=== PATIENT | female | born 1945 | race Hispanic/Latino ===

== ENCOUNTER 2020-06-22 08:27 | Day surgery (SDC) | payer MEDICARE ==
[2020-06-19 08:57] LABS: Absolute Lymphocytes (CBC) 1.5 K/uL (0.7-4.9); Basophils % 0.6 % (0-1.3); Hematocrit 40.5 % (36.0-45.0); Lymphocytes % 32.8 % (15.3-44.8); MPV 7.2 fL (7.6-11.3); RBC Red Blood Cell Count 4.58 M/uL (3.86-4.86)
[2020-06-19 09:07] LABS: Potassium 3.5 mmol/L (3.5-5.1)
[2020-06-22] MEDS ORDERED: LIDOCAINE 1% MPF 30 ML VIAL ONE (09:02)
[2020-06-22] MEDS ORDERED: FENTANYL CITR 100 MCG/2 ML ONE ×2 (09:05→10:37)
[2020-06-22] MEDS ORDERED: LIDOCAINE 1% MPF 5 ML VIAL ONE ×2 (09:05→10:37)
[2020-06-22] MEDS ORDERED: propofoL 200 MG/20 ML VIAL IV ONE ×2 (09:05→10:37)
[2020-06-22] MEDS ORDERED: Ringers Lactate 1,000 ML IV ONE (09:13)
[2020-06-22] MEDS ORDERED: CEFAZOLIN/SWI 1gm 1 GM/10 ML SYR ONE (09:13)
[2020-06-22] MEDS ORDERED: ONDANSETRON 4 MG/2 ML VIAL ONE (10:50)
[2020-06-22] MEDS ORDERED: dexAMETHasone 10 MG/ML VIAL ONE (10:50)
[2020-06-22] MEDS ORDERED: KETOROLAC 30 MG/ML INJ ONE (10:58)
[2020-06-22] MEDS ORDERED: EPHEDRINE SULF 50 MG/ML VIAL ONE (10:58)
[2020-06-22] MEDS ORDERED: NS 0.9% VIAL 10 ML ONE (10:59)
[2020-06-22] MEDS ORDERED: Mastisol Adhesive Liq ONE (11:22)
[2020-06-22 11:48] VITALS: O2SAT 93
--- NOTE | 2020-06-22 12:11 | OP ---
Date of Procedure: 06/22/2020 Surgeon: Kishan Godoy MD Education Officer: JAILYN Mtz. Preoperative Diagnosis: Left-sided vision change and headache, rule out temporal arteritis. Postoperative Diagnosis: Left-sided vision change and headache, rule out temporal arteritis. Procedure: Left temporal artery biopsy, utilization of Doppler device to isolate the entrance of the temporal artery. Estimated Blood Loss: Minimal. Specimen: Left temporal artery. Findings: As above. Anesthesia: General. Complications: None. Disposition: The patient tolerated the procedure in stable condition and taken to Recovery in good g eneral condition. Procedure In Detail: The patient was brought to the OR and placed in supine position. General anest hesia begun. The patient was prepped and draped in the usual sterile fashion. Doppler device was us ed to isolate the branch of the temporal artery anterior and superior to the left. Then, Marcaine 0. 5% was infiltrated locally. A 15-blade was used to make a 4 cm incision. Subcutaneous tissue was di vided and then deep to the subcutaneous tissue, a branch of temporal artery identified. The proximal and distal control obtained with sharp and blunt dissection. Bleeding controlled with cautery. The 4-0 silk was used to tie off both ends and 4 cm segment excised and sent to Pathology. The wound wa s irrigated. Bleeding controlled with cautery. A 4-0 chromic was used to approximate the subcutaneo us tissue and close the skin. Sterile dressing was applied. The patient was awakened and taken to ecovery in good general condition. Discharge Note: The patient will go to Day Surgery and home when stable. Disposition: Home. Condition: Stable. Discharge Instructions: Resume home medications and diet. Activity as tolerated. No heavy lifting. Remove outer dressing in 2 days. Shower. Keep Steri-Strips on at all times. Followup in my offic e 2 weeks. Call for appointment. Follow up with Dr. Logan in 1 week. Call for appointment. Ult racet 1 tablet p.o. q.4 p.r.n. pain. /MODL Voice ID: [id number] Report ID: [id number]
[2020-06-22 12:15] VITALS: BP 136/63; TEMP 96.1
== END 2020-06-22 12:50 | disposition home or self-care (01) ==
LOC: OR 08:27
PROVIDERS: ATTEND Surgery
PROC: 03BT0ZX Excision of Left Temporal Artery, Open Approach, Diagnostic (ICD-10-PCS; principal; 2020-06-22 10:00)
DX: H57.12 Ocular pain, left eye (principal); H53.9 Unspecified visual disturbance; R51.9 Headache, unspecified; I10 Essential (primary) hypertension; I25.10 Atherosclerotic heart disease of native coronary artery without angina pectoris; Z20.822 Contact with and (suspected) exposure to COVID-19
CPT/HCPCS: 37609; 85025; 80048; 36415; 88305; U0003; J2704; J3010; J1100; J0690; J7120; J2405

== ENCOUNTER 2020-11-24 08:50 | Emergency (ER) | payer MEDICARE, OTHER ==
--- OUTSIDE RECORDS SUMMARY | 2020-11-24 08:54 | XMS REPORT | Continuity of Care Document ---
:1945 Author Organization [facility] t Address [address] [place] [address] Care Team Providers Name Role Phone BELIA Primary Care Physician Unavailable Jodi Castillo Attending Clinician Jakub Villafana Attending Clinician Karma Hook MD Attending Clinician Sigifredo DO Attending Clinician SIGIFREDO, DO A Attending Clinician Unavailable BELIA Attending Clinician Unavailable SIGIFREDO Admitting Clinician Unavailable SIGIFREDO, DO A Admitting Clinician Unavailable BELIA Admitting Clinician Unavailable Payers Payer Name Policy Type Policy Effective Expiration Source Number Date Date [facility] MEDICARE(WELLMED) [id number] 2020 Met goyo LUJAN MEDICARE ADVANTAGE 00:00:00 H ospital [id number] 2021-Pr esentHMO [employer] [id number] 2020 [place] dist CHOICE/CHOICE 00:00:00 Hospital [id number] 2020-Prese ntHMO/PPO Problems Condition Condition Condition Status Onset Resolution Last Treating Co mments Source Name Details Category Date Date Treatment Clinician Date Urinary Urinary Disease Active [facility]i tract tract 2-13 st infection infection 00:00: [facility] without without 00 l hematuria hematuria Hypothyroi Hypothyroi Problem Active 2019-0 [facility] [place] dism dism 611 da [facility] Peripheral Peripheral Problem Active 0 M [place] chorioreti Chorioreti 611 da nal scar nal Scar 00:00: [facility] Nuclear Nuclear Problem Active [place] sclerotic Sclerotic 09-04 da cataract Cataract 00:00: [facility] Hypermetro Hypermetro Problem Active 2019- M [facility] garbiele gabriele 6 da 00:00: [facility] Myopia Myopia Problem Active 2018- [place] 6 da 00:[facility]: [facility] Regular Regular Problem Active 2018- [place] astigmatis Astigmatis 6 da m m 00:00: [facility] Presbyopia Presbyopia Problem Active 2018-0 M [facility] 09-04 da 00:00: [facility] Essential Essential Problem Active [facility] [place] hypertensi Hypertensi 6 da on on 00:00: [facility] Heart Heart Problem Active [place] disease Disease 09-04 da 00:00: [facility] Arthritis Arthritis Problem Active [facility] 6 da 00:00: [facility] Pseudophak Pseudophak Problem Active 2018-0 [facility] [place] ia ia 09-04 da 00:00: [facility] Colon Colon Disease Active [facility] cancer cancer 10-09 st screening screening 00:00: [facility]osp [facility] 00 l Elevated Elevated Disease Active [facility] di ferritin ferritin 08-30 00:00: Hospita 00 l Basophilia Basophilia Disease Active M ethodi 08-09 st 00:00: Hospita 00 l White White Disease Active Methodi blood cell blood cell 16 st abnormalit abnormalit 00:00: Ho spita y y 00 l Abnormal Abnormal Disease Active [facility] di liver liver 08-09 function function 00:00: Hospit a test test 00 l Rash Rash Disease Active [facility] 08-09 st 00:00: Hospita 00 l Left upper Left upper Disease Active M ethodi quadrant quadrant 16 st pain pain 00:00: Hospita 00 l Pseudophak Problem Active 2013-032020-11-21 M emoria ia 2- 00:39:35 l (disorder) 00:00: Yfn n Pseudophak 00 ia (disorder) Active 02/24/2014 Problem 11/21/2020 Data migrated from [employer] on 08/26/14. [facility] her Neuro Arterioscl Problem Active 2013-032020-11-21 M emoria erotic 1- 00:39:35 l vascular 00:00: [place] disease Arterioscl 00 (disorder) erotic vascular disease (disorder) Active 02/03/2014 Problem 11/21/2020 Data migrated from [employer] on 08/26/14. [facility] her Neuro Disorder Problem Active 2013-032020-11-21 Mem oria of - 00:39:35 l refraction Disorder 00:00: He rmann AND/OR of 00 accommodat refraction ion AND/OR (disorder) accommodat ion (disorder) Active 02/03/2014 Problem 11/21/2020 Data migrated from [employer] on 08/26/14. [facility] her Neuro Hypertensi Problem Active 2013-032020-11-21 M emoria ve 1- 00:39:35 l disorder, 00:00: [place] systemic Hypertensi 00 arterial ve (disorder) disorder, systemic arterial (disorder) Active 02/03/2014 Problem 11/21/2020 Data migrated from [employer] on 08/26/14. [facility] her Neuro Hypothyroi Problem Active 2013-032020-11-21 M emoria dism 1- 00:39:35 l (disorder) 00:00: Yfn n Hypothyroi 00 dism (disorder) Active 02/03/2014 Problem 11/21/2020 Data migrated from [employer] on 08/26/14. [facility] her Neuro Radial Radial Problem Active [place] styloid Styloid da tenosynovi Tenosynovi Me dical tis tis Group Chorioreti Problem Active 2020-11-21 M emoria nal scar 00:39:35 l (disorder) Yfn n Chorioreti nal scar (disorder) Active Problem 11/21/2020 [facility] her Neuro Chronic Problem Active 2020-11-21 Thad fern kidney 00:39:35 l disease Chronic Yfn n stage 3 kidney (disorder) disease stage 3 (disorder) Active Problem 11/21/2020 [facility] her Neuro Coronary Problem Active 2020-11-21 Mem oria arterioscl 00:39:35 l erosis Coronary Yfn n (disorder) arterioscl erosis (disorder) Active Problem 11/21/2020 [facility] her Neuro Hyperlipid Problem Active 2020-11-21 M emoria emia 00:39:35 l (disorder) Yfn n Hyperlipid emia (disorder) Active Problem 11/21/2020 [facility] her Neuro Nuclear Problem Active 2020-11-21 Thad fern cataract 00:39:35 l (disorder) Nuclear Her mauricio cataract (disorder) Active Problem 11/21/2020 [facility] her Neuro Osteoporos Problem Active 2020-11-21 M emoria is 00:39:35 l (disorder) Yfn n Osteoporos is (disorder) Active Problem 11/21/2020 [facility] her Neuro Polycythem Problem Active 2020-11-21 M emoria ia vera 00:39:35 l (disorder) Yfn n Polycythem ia vera (disorder) Active Problem 11/21/2020 [facility] her Neuro Temporal Problem Active 2020-11-21 Mem oria arteritis 00:39:35 l (disorder) Temporal He rmann arteritis (disorder) Active Problem 11/21/2020 [facility] her Neuro Transient Problem Active 2020-11-21 Me moria ischemic 00:39:35 l attack [place] (disorder) Transient ischemic attack (disorder) Active Problem 11/21/2020 [facility] her Neuro Allergies, Adverse Reactions, Alerts Allergy Allergy Status Severity Reaction(s) Onset Inactive Treating Comm ents Source Name Type Date Date Clinician codeine codeine Active Memoria l [place] Codeine Propensi Active GI nausea Methodi ty to Intolerance and st adverse dizziness Hospit a reaction l s to drug STATINS- Allergy Active Other [place] [facility] to da REDUCTAS substanc Medica l E e Group INHIBITO RS Family History Family Member Diagnosis Comments Start Date Stop Date Source Natural [facility] Natural brother [facility] Natural father [facility] Natural mother Cirrhosis [facility] Social History Social Habit Start Date Stop Date Quantity Comments Source Social History 2020-07-17 2020-07-17 Ezekiel alan 20:15:13 20:15:13 Tobacco use and 2020-05-09 2020-05-09 Never used [facility] exposure 00:00:00 00:00:00 Hospital Alcohol intake 2020-05-09 2020-05-09 Current [facility] 00:00:00 00:00:00 non-drinker of Hospital alcohol (finding) Sex [birth year] [facility] 00:00:00 00:00:00 Hospital Smoking Status Start Date Stop Date Source [facility] Medications Ordered Filled Start Stop Current Ordering Indication Dosage Frequency Signature Comments Components Source Medication Medication Date Date Medication? Clinician (SIG) Name Name Sulfamethox Yes 1 tab, PO, Memoria azole 800 8-06 BID, X 10 l MG / 16:31: day, # 20 [place] Trimethopri 00 tab, 0 m 160 MG Refill(s), Oral Tablet Pharmacy: [Bactrim] [facility] #[id number], 157.48, cm, 10/30/20 11:04:00 CDT, Height, 73.636, kg, 10/30/20 11:04:00 CDT, Weight Timolol Yes 0 Memoria Maleate 8-06 Refill(s) l (Eqv-Timopt 16:08: Yfn villarreal ic) 0.5% 00 ophthalmic solution pantoprazol Yes = 1 tab, Me moria e 40 mg 7-26 PO, Daily, l oral 17:51: # 90 tab, [place] enteric 00 0 coated Refill(s), tablet Pharmacy: [facility] #[id number], 157.48, cm, 08/28/20 14:10:00 CDT, Height, 73.182, kg, 08/28/20 14:10:00 CDT, Weight predniSONE Yes 5 mg = 1 Mem oria 5 mg oral 6-04 tab, PO, l tablet 19:19: Daily, # [place] 00 30 tab, 3 Refill(s), Pharmacy: [facility] #[id number], 157.48, cm, 08/28/20 14:10:00 CDT, Height, 73.182, kg, 08/28/20 14:10:00 CDT, Weight 0.5 ML 2020-0 Yes 0.5 mL, Memoria Varicella 6-03 IM, ONCE, l zoster 14:09: repeat [place] virus 00 dose in 2 glycoprotei to 6 n E, months, # recombinant 1 mL, 1 0.1 MG/ML Refill(s), Injection Pharmacy: [Shingrix] [facility] #[id number], 157.48, cm, 08/27/20 8:52:00 CDT, Height, 73.182, kg, 08/27/20 8:52:00 CDT, Weight Adacel 2020-0 Yes 0.5 ml, Memoria (Tdap) 6-03 IM, ONCE, l intramuscul 14:09: # 1 mL, 0 H ermann ar 00 Refill(s), suspension Pharmacy: [facility] #[id number], 157.48, cm, 08/27/20 8:52:00 CDT, Height, 73.182, kg, 08/27/20 8:52:00 CDT, Weight Alendronic 2020-0 Yes 70 mg = 1 Me moria acid 70 MG 6-03 tab, PO, l Oral Tablet 14:05: qWeek, # He rmann 00 12 tab, 3 Refill(s), Pharmacy: [facility] #[id number], 157.48, cm, 08/27/20 8:52:00 CDT, Height, 73.182, kg, 08/27/20 8:52:00 CDT, Weight predniSONE 2020-0 No 10 mg = 1 Me moria 10 mg oral 5-04 tab, PO, l tablet 23:16: Daily, # [place] 00 30 tab, 2 Refill(s), Pharmacy: [facility] #[id number], 157.48, cm, 07/22/20 8:24:00 CDT, Height, 73.045, kg, 07/22/20 8:24:00 CDT, Weight prasugrel 2020-0 Yes 10 mg = 1 Mem oria 10 mg oral 4-28 tab, PO, l tablet 13:29: Daily, # [place] 00 30 tab, 0 Refill(s) predniSONE Yes 20 mg = 1 Me moria 20 mg oral 4-23 tab, PO, l tablet 20:45: Daily, [place] 00 TAKE 1 TABLET BY MOUTH TWICE DAILY, X 30 day, # 30 tab, 2 Refill(s), Pharmacy: [facility] #[id number], 73.182, kg, 07/17/20 15:12:00 CDT, Weight predniSONE No TAKE 1 Memor ia 20 mg oral 4-23 TABLET BY l tablet 20:31: MOUTH [place] 00 TWICE DAILY Hydrochloro Yes 25 mg = 1 M emoria thiazide 25 4-23 tab, PO, l MG Oral 20:30: Daily, # Yfn n Tablet 00 30 tab, 0 Refill(s) atorvastati Yes 40 mg = 1 M emoria n 40 mg 4-23 tab, PO, l oral tablet 20:30: Bedtime, # [place] 00 30 tab, 0 Refill(s) meloxicam Yes 7.5 mg = 1 Me moria 7.5 mg oral 4-23 tab, PO, l tablet 20:30: Daily, # [place] 00 30 tab, 0 Refill(s) aspirin 2020- No 81mg QD Take 1 [facility] (ECOTRIN) -08 06-18 tablet (81 st 81 MG 00:00: 04:59 mg total) Hospit a enteric 00 :00 by mouth l coated daily for tablet 30 doses. aspirin 2020- No 81mg QD Take 1 [facility] (ECOTRIN) 2-11 05-14 tablet (81 st 81 MG 00:00: 00:00 mg total) Hospit a enteric 00 :00 by mouth l coated daily for tablet 30 doses. aspirin 2020- No 81mg QD Take 1 [facility] (ECOTRIN) 2-15 -14 tablet (81 st 81 MG 00:00: 00:00 mg total) Hospit a enteric 00 :00 by mouth l coated daily for tablet 30 doses. EZETIMIBE Yes Take by Metho di ORAL 2-[address] 20:44: Hospita 21 l prasugreL Yes 10mg QD Take 10 mg Me thodi (EFFIENT) -[address] 10 mg 20:44: daily. Hospita tablet 21 l predniSONE Yes 20mg Q.5D Take 20 mg M ethodi (DELTASONE) -[address] 20 mg 20:44: (two) Hospita tablet 21 times a l day. hydroCHLORO 2020- No 25mg QD Take 25 mg Methodi thiazide 05-[address] (HYDRODIURI 20:36: 00:00 daily. Hos jorge L) 25 MG 06 :00 l tablet atorvastati 2020- No 40mg QD Take 1 Met hodi n (Lipitor) 05-10 tablet (40 s t 40 mg 00:00: 04:59 mg total) Hospit a tablet 00 :00 by mouth l daily for 30 days. NIFEdipine 2020- No 30mg QD Take 1 Meth romario XL 05-10 tablet (30 st (PROCARDIA 00:00: 04:59 mg total) H ospita XL) 30 MG 00 :00 by mouth l 24 hr daily for tablet 30 days. nitrofurant 2020- No 100mg Q.5D Take 1 Me thodi oin, 05-[address] macrocrysta 00:00: 05:59 (100 mg Ho spita l-monohydra 00 :00 total) by l te, mouth (MACROBID) every 12 100 MG (twelve) capsule hours for 9 days. NIFEdipine 2020- No 30mg QD Take 1 Meth romario XL 05-10 tablet (30 st (PROCARDIA 00:00: 00:00 mg total) H ospita XL) 30 MG 00 :00 by mouth l 24 hr daily for tablet 30 days. atorvastati 2020- No 40mg QD Take 1 Met hodi n (Lipitor) 05-10 tablet (40 s t 40 mg 00:00: 00:00 mg total) Hospit a tablet 00 :00 by mouth l daily for 30 days. nitrofurant 2020- No 100mg Q.5D Take 1 Me thodi oin, 05-[address] macrocrysta 00:00: 00:00 (100 mg Ho spita l-monohydra 00 :00 total) by l te, mouth (MACROBID) every 12 100 MG (twelve) capsule hours for 9 days. atorvastati No 40mg QD Take 1 Met hodi n (Lipitor) 05-10 tablet (40 s t 40 mg 00:00: 00:00 mg total) Hospit a tablet 00 :00 by mouth l daily for 30 days. NIFEdipine No 30mg QD Take 1 Meth romario XL 05-10 tablet (30 st (PROCARDIA 00:00: 00:00 mg total) H ospita XL) 30 MG 00 :00 by mouth l 24 hr daily for tablet 30 days. amLODIPine No 1{tbl} QD Take 1 Me thodi (NORVASC) 10-[address] 10 mg 00:00: 00:00 mouth Hospita tablet 00 :00 daily. l prasugrel No 10mg QD Take 10 mg M ethodi (EFFIENT) 06-[address] 10 mg 00:00: 00:00 daily. Hospita tablet 00 :00 l alendronate Yes TAKE 1 Meth romario (FOSAMAX) 3-[address] 70 MG 00:00: MOUTH Hospita tablet 00 WEEKLY FOR l BONES pantoprazol Yes TAKE 1 Meth romario e 2-[address] (PROTONIX) 00:00: MOUTH AT Hos jorge 40 MG EC 00 BEDTIME l tablet FOR REFLUX levothyroxi Yes TAKE 1 Meth romario ne 2-[address] (SYNTHROID, 00:00: MOUTH Hospi ta LEVOXYL) 50 00 DAILY FOR l mcg tablet THYROID alendronate alendronate No alendronat [place] 70 mg 70 mg e 70 mg da tablet TAKE tablet TAKE tablet Medical 1 TABLET BY 1 TABLET BY TAKE 1 Group MOUTH MOUTH TABLET BY WEEKLY FOR WEEKLY FOR MOUTH BONES BONES WEEKLY FOR BONES hydrochloro hydrochloro No hydrochlor [place] thiazide 25 thiazide 25 othiazide da mg tablet mg tablet 25 mg Medi haroldo TAKE 1 TAKE 1 tablet Group TABLET BY TABLET BY TAKE 1 MOUTH EVERY MOUTH EVERY TABLET BY DAY FOR 90 DAY FOR 90 MOUTH DAYS DAYS EVERY DAY FOR 90 DAYS ketoconazol ketoconazol No ketoconazo [place] e 2 % e 2 % le 2 % da topical topical topical Medica l cream APPLY cream APPLY cream Group TO THE TO THE APPLY TO AFFECTED AFFECTED THE AREA(S) BY AREA(S) BY AFFECTED TOPICAL TOPICAL AREA(S) BY ROUTE ONCE ROUTE ONCE TOPICAL DAILY DAILY ROUTE ONCE DAILY levothyroxi levothyroxi No levothyrox [place] ne 50 mcg ne 50 mcg ine 50 mcg da tablet TAKE tablet TAKE tablet Medical 1 TABLET BY 1 TABLET BY TAKE 1 Group MOUTH EVERY MOUTH EVERY TABLET BY DAY DAY MOUTH EVERY DAY meloxicam meloxicam No meloxicam [place] 7.5 mg 7.5 mg 7.5 mg da tablet TAKE tablet TAKE tablet Medical 1 TABLET BY 1 TABLET BY TAKE 1 Group MOUTH TWO MOUTH TWO TABLET BY TIMES A DAY TIMES A DAY MOUTH TWO FOR 30 DAYS FOR 30 DAYS TIMES A DAY FOR 30 DAYS nitroglycer nitroglycer No nitroglyce [place] in 0.4 mg in 0.4 mg rin 0.4 mg da sublingual sublingual sublingual Medical tablet tablet tablet Group pantoprazol pantoprazol No pantoprazo [place] e 40 mg e 40 mg le 40 mg da tablet,alejandra tablet,alejandra tablet,del Medical yed release yed release ayed G roup TAKE 1 TAKE 1 release TABLET BY TABLET BY TAKE 1 MOUTH EVERY MOUTH EVERY TABLET BY DAY FOR 30 DAY FOR 30 MOUTH DAYS DAYS EVERY DAY FOR 30 DAYS prasugrel prasugrel No prasugrel [place] 10 mg 10 mg 10 mg da tablet TAKE tablet TAKE tablet Medical 1 TABLET BY 1 TABLET BY TAKE 1 Group MOUTH EVERY MOUTH EVERY TABLET BY DAY FOR 30 DAY FOR 30 MOUTH DAYS DAYS EVERY DAY FOR 30 DAYS alendronate alendronate No alendronat [place] 70 mg 70 mg e 70 mg da tablet tablet tablet [facility] hydrochloro hydrochloro No hydrochlor [place] thiazide 25 thiazide 25 othiazide da mg tablet mg tablet 25 mg Epis copy cutter tablet al [facility] levothyroxi levothyroxi No levothyrox [place] ne 50 mcg ne 50 mcg ine 50 mcg da tablet tablet tablet [facility] meloxicam meloxicam No meloxicam [place] 7.5 mg 7.5 mg 7.5 mg da tablet tablet tablet [facility] pantoprazol pantoprazol No pantoprazo [place] e 40 mg e 40 mg le 40 mg da tablet,alejandra tablet,alejandra tablet,del [facility] yed release yed release ayed a l release [facility] Outre[facility] Program Praluent Praluent No Praluent [place] Pen 75 Pen 75 Pen 75 da mg/mL mg/mL mg/mL [facility] subcutaneou subcutaneou subcutaneo al s pen s pen [facility] injector injector injector Out reac h Program prasugrel prasugrel No prasugrel [place] 10 mg 10 mg 10 mg da tablet tablet tablet [facility] Immunizations Ordered Immunization Filled Immunization Date Status Commen ts Source Name Name [id number] 2020-06-13 Completed Thad emy Simmons [id number] 00:00:00 <sup>1</sup> [id number] 2020-05-23 Completed Thad emy Simmons [id number] 00:00:00 <sup>2</sup> Influenza vaccine, Influenza vaccine, 2020-01-15 Completed [facility] quadrivalent, quadrivalent, 14:13:58 Medical Group adjuvanted adjuvanted influenza, high dose influenza, high 2019-04-24 Completed [facility] seasonal dose seasonal 13:04:21 Medical Haile up Vital Signs Vital Name Observation Time Observation Value Comments Source BP Diastolic 2020-01-15 00:00:00 79 mm[Hg] [facility] Height 2020-01-15 00:00:00 62 [in_i] [facility] BMI (Body Mass 2020-01-15 00:00:00 30.3 kg/m2 [facility] Medical Index) Group BP Systolic 2020-01-15 00:00:00 136 mm[Hg] [facility] Body Weight 2020-01-15 00:00:00 2647 [oz_av] [facility] BP Diastolic 2019-04-24 00:00:00 79 mm[Hg] [facility] Height 2019-04-24 00:00:00 62 [in_i] [place] [facility] BMI (Body Mass 2019-04-24 00:00:00 29.1 kg/m2 [facility] [employer] Medical Index) Group BP Systolic 2019-04-24 00:00:00 128 mm[Hg] [place] [facility] Body Weight 2019-04-24 00:00:00 2544 [oz_av] [facility] Height 2019-04-09 00:00:00 62 [in_i] [place] [facility] BMI (Body Mass 2019-04-09 00:00:00 29.3 kg/m2 [place] [facility] [employer] operator Index) [facility] Body Weight 2019-04-09 00:00:00 160 [lb_av] [place] [facility] BP Diastolic 2018-09-11 00:00:00 74 mm[Hg] [facility] Height 2018-09-11 00:00:00 62 [in_i] [facility] BMI (Body Mass 2018-09-11 00:00:00 29.8 kg/m2 [facility] [employer] [facility] Medical Index) Group BP Systolic 2018-09-11 00:00:00 122 mm[Hg] [facility] [facility] Body Weight 2018-09-11 00:00:00 2608 [oz_av] [facility] BP Diastolic 2018-06-25 00:00:00 80 mm[Hg] [facility] Height 2018-06-25 00:00:00 62 [in_i] [facility] BMI (Body Mass 2018-06-25 00:00:00 29.3 kg/m2 [facility] [employer] Medical Index) Group BP Systolic 2018-06-25 00:00:00 124 mm[Hg] [place] [facility] Body Weight 2018-06-25 00:00:00 2560 [oz_av] [facility] BP Diastolic 2018-06-14 00:00:00 79 mm[Hg] [facility] Height 2018-06-14 00:00:00 62 [in_i] [facility] [facility] BMI (Body Mass 2018-06-14 00:00:00 30 kg/m2 [place] [facility] [employer] operator Medical Index) Group BP Systolic 2018-06-14 00:00:00 143 mm[Hg] [facility] Body Weight 2018-06-14 00:00:00 2627 [oz_av] [facility] Systolic (mm Hg) 2020-10-30 16:04:00 Thad rial [place] Diastolic (mm Hg) 2020-10-30 16:04:00 Mem orial [place] Height 2020-10-30 16:04:00 157.48 cm [facility] [place] Weight 2020-10-30 16:04:00 [facility] [place] BMI Calculated 2020-10-30 16:04:00 Memori al [place] Systolic (mm Hg) 2020-08-28 19:10:00 Thad rial [place] Diastolic (mm Hg) 2020-08-28 19:10:00 Mem orial [place] Heart Rate 2020-08-28 19:10:00 [facility] [place] Respitory Rate 2020-08-28 19:10:00 Memori al [place] Height 2020-08-28 19:10:00 157.48 cm [facility] [place] Weight 2020-08-28 19:10:00 [facility] [place] BMI Calculated 2020-08-28 19:10:00 Memori al [place] Systolic (mm Hg) 2020-08-27 13:52:00 Thad rial [place] Diastolic (mm Hg) 2020-08-27 13:52:00 Mem orial [place] Heart Rate 2020-08-27 13:52:00 [facility] [place] Height 2020-08-27 13:52:00 157.48 cm [facility] [place] Weight 2020-08-27 13:52:00 [facility] [place] BMI Calculated 2020-08-27 13:52:00 Memori al [place] Systolic (mm Hg) 2020-07-22 13:54:00 Thad rial [place] Diastolic (mm Hg) 2020-07-22 13:54:00 Mem orial [place] Heart Rate 2020-07-22 13:54:00 [facility] [place] Systolic (mm Hg) 2020-07-22 13:24:00 Thad rial [place] Diastolic (mm Hg) 2020-07-22 13:24:00 Mem orial [place] Heart Rate 2020-07-22 13:[facility]:00 [facility] 2020-07-22 13:24:00 [facility] 2020-07-22 13:24[facility] Calculated 2020-07-22 13:24:00 Memori al [place] Systolic (mm Hg) 2020-07-17 20:12:00 Thad rial [place] Diastolic (mm Hg) 2020-07-17 20:12:00 Mem orial [place] Heart Rate 2020-07-17 20:12:00 [facility] [place] Respitory Rate 2020-07-17 20:12:00 Memori al [place] Weight 2020-07-17 20:12:00 [facility] Systolic blood 2020-05-10 18:58:41 111 mm[Hg] [facility] pressure Diastolic blood 2020-05-10 18:58:41 70 mm[Hg] [facility] pressure Heart rate 2020-05-10 18:58:41 65 /min [facility] Body temperature 2020-05-10 18:58:41 35.78 Donna [facility] Respiratory rate 2020-05-10 18:58:41 18 /min [facility] Oxygen saturation in 2020-05-10 18:58:41 96 /min [facility] Arterial blood by Pulse oximetry Body height 2020-05-09 21:30:00 157.5 cm [facility] Body weight 2020-05-09 21:30:00 73.483 kg [facility] BMI 2020-05-09 21:30:00 29.63 kg/m2 [facility] Procedures Procedure Date / Time Performing Clinician Source Performed Temporal artery biopsy 2020-07-01 05:00:00 Karson Simmons US CAROTID DUPLEX 2020-05-10 20:41:52 Chong Mccarthy [facility] BILATERAL [facility] MRI BRAIN WO CONTRAST 2020-05-10 16:20:26 Chong Mccarthy [facility] TTE COMPLETE, W CONTRAST, 2020-05-10 14:00:00 Shari [facility] W DOPPLER ([id number]) Owen HIV AG/AB COMBINATION 2020-05-10 10:32:00 [facility] LIPID PANEL 2020-05-10 10:31:00 Shari, [facility] HOMOCYSTINE, PLASMA 2020-05-10 10:31:00 Shari, [facility] THYROID STIMULATING 2020-05-10 10:31:00 Shari, [facility] HORMONE [facility] T4, FREE 2020-05-10 10:31:00 Shari, [facility] C-REACTIVE PROTEIN 2020-05-10 10:31:00 Shari, [facility] BASIC METABOLIC PANEL 2020-05-10 10:31:00 Sigifredo [facility] ESTIMATED GFR 2020-05-10 10:31:00 Sigifredo [facility] spital HEMOGLOBIN A1C 2020-05-10 10:25:00 Shari, [facility] FOLATE LEVEL 2020-05-10 10:25:00 Shari, [facility] VITAMIN B12 LEVEL 2020-05-10 10:25:00 Shari, [facility] SYPHILIS TREPONEMA SCREEN 2020-05-10 10:25:00 Shari, [facility] WITH RPR CONFIRMATION [place] (REVERSE ALGORITHM) SEDIMENTATION RATE 2020-05-10 10:12:00 Shari, [facility] PROTHROMBIN TIME WITH INR 2020-05-10 10:12:00 Shari, [facility] PARTIAL THROMBOPLASTIN 2020-05-10 10:12:00 Shari [facility] TIME (PTT) [facility] HC COMPLETE BLD COUNT 2020-05-10 10:12:00 Sigifredo [facility] W/AUTO DIFF URINALYSIS, AUTOMATED WITH 2020-05-10 04:57:00 Sigifredo [facility] MICROSCOPY CT ANGIOGRAM HEAD W WO 2020-05-09 23:27:56 [facility] CONTRAST CT ANGIOGRAM NECK W WO 2020-05-09 23:27:11 [facility] [facility] CONTRAST COVID-19 QUALITATIVE 2020-05-09 23:10:00 MonsterAndriy pisano [facility] RT-PCR CT STROKE BRAIN WO 2020-05-09 22:14:44 MonsterAndriy pisano [facility] CONTRAST URINALYSIS 2020-05-09 22:14:00 MonsterAndriy pisano [facility] CBC WITH PLATELET AND 2020-05-09 21:38:00 MonsterAndriy pisano [facility] DIFFERENTIAL COMPREHENSIVE METABOLIC 2020-05-09 21:38:00 MonsterAndriy [facility] PANEL TROPONIN, I-STAT 2020-05-09 21:38:00 MonsterAndriy [facility] B NATRIURETIC PEP, I-STAT 2020-05-09 21:38:00 MonsterAndriy [facility] ESTIMATED GFR 2020-05-09 21:38:00 MonsterAndriy pisano [facility] MANUAL DIFFERENTIAL 2020-05-09 21:38:00 MonsterAndriy pisano [facility] ECG 12-LEAD 2020-05-09 21:30:25 MonsterAndriy pisano [facility] MAMMO, screening, digital, 2020-01-15 00:00:00 M [facility] bilateral Group DEXA 2020-01-15 00:00:00 [facility] dical Group MRI, cervical spine, w/o 2020-01-15 00:00:00 [facility] contrast Group MAMMO, screening, digital, 2018-09-11 00:00:00 M [facility] bilateral Group Colonoscopy<sup>1</sup> 2017-10-09 05:00:00 Thad Simmons Placement of Stent 2011-04-15 00:00:00 [facility] Placement of Stent 2011-03-31 00:00:00 [facility] Hernia Repair [facility] Cholecystectomy [facility] Procedure on Foot [facility] Procedure [facility] - Cataract extraction Memori al [place] and insertion of intraocular lens Cataract (Left) Removal [place] [facility] Varicose Vein Stripping [place] [facility] Colonoscopy with Biopsy [facility] Plan of Care Planned Activity Planned Date Details Comments Source Diagnostic Test 2020-01-15 TSH, serum or plasma [facility] Pending 00:00:00 [code = TSH, serum or Group plasma] Diagnostic Test 2020-01-15 lipid panel, serum [place] [facility] control operator [facility] Pending 00:00:00 [code = lipid panel, Group serum] Diagnostic Test 2020-01-15 CMP, serum or plasma [facility] Pending 00:00:00 [code = CMP, serum or Group plasma] Diagnostic Test 2020-01-15 hemoglobin A1c, QN, [place] [facility] Pending 00:00:00 blood [code = Group hemoglobin A1c, QN, blood] Future Scheduled 65[facility] VACCINE (1 of 2 - PPSV23) [code = 65+ PNEUMOCOCCAL VACCINE (1 of 2 - PPSV23)] Future Scheduled COVID-19 VACCINE (1) Met [facility] Test [code = COVID-19 VACCINE (1)] Future Scheduled Hepatitis C screening Me [facility] Test (procedure) [code = 723671744] Future Scheduled BREAST CANCER [facility] Test SCREENING [code = BREAST CANCER SCREENING] Future Scheduled COLONOSCOPY SCREENING Me [facility] Test [code = COLONOSCOPY SCREENING] Future Scheduled [facility] (#1) [code = SHINGLES VACCINES (#1)] Future Scheduled INFLUENZA [facility]ACCINE [facility] Test [code = INFLUENZA VACCINE] Encounters Start End Encounter Admission Attending Care Care Encounter Source Date/Time Date/Time Type Type Clinicians Facility Department ID 2021-03-08 2021-03-08 Outpatient OWEN WEAVER [id number] [facility]oria 09:30:00 09:30:00 07 marysol Simmons 2020-12-01 2020-12-01 Outpatient OWEN WEAVER [id number] [facility]oria 10:30:00 10:30:00 08 marysol Simmons 2020-11-25 2020-11-25 Outpatient OWEN WEAVER [id number] Memoria 13:40:00 13:40:00 10 marysol Simmons 2020-11-17 2020-11-19 Phone nullFlavo [facility] [id number] Memoria 16:49:19 04:59:59 Message r Primary 02 l Care [place] 2020-11-17 2020-11-18 Outpatient MH[facility] [id number] 11:49:19 23:59:59 02 2020-10-30 2020-10-31 Outpatient nullFlavo [facility] [id number] Memoria 16:00:00 04:59:[address] [facility] 2020-10-30 2020-10-30 Outpatient Jonathan, MHMG MH[facility] [id number] 11:00:00 23:59:59 Lizbeth 09 Jyotina 2020-10-30 2020-10-30 Outpatient MHIE MHIE [id number] Memoria 11:00:00 11:00:00 09 marysol [place] 2020-10-19 2020-10-20 Between nullFlavo [facility]MG [id number] Memoria 17:50:07 17:50:07 Visit r Primary 03 [facility] 2020-10-19 2020-10-20 Outpatient MHMG MH[facility] [id number] 12:50:07 12:50:07 03 2020-09-10 2020-09-11 Between nullFlavo [facility] [id number] Memoria 17:49:56 17:49:56 Visit r Primary 02 [facility] 2020-09-10 2020-09-11 Outpatient MHMG MH[facility] [id number] 12:49:56 12:49:56 02 2020-08-28 2020-08-29 Outpatient nullFlavo MNA [id number] Memoria 19:15:00 04:59:59 r Neurology 04 l [place] 2020-08-28 2020-08-28 [facility] [id number] 14:15:00 23:59:59 Mitch Call 2020-08-28 2020-08-28 Outpatient MHIE MHIE [id number] Memoria 14:15:00 14:15:00 04 marysol [place] 2020-08-27 2020-08-28 Outpatient nullFlavo MHMG [id number] Memoria 13:30:00 04:59:[address] [facility] 2020-08-27 2020-08-27 Outpatient Jonathan, MHMG MHMG [id number] 08:30:00 23:59:59 Lizbeth 06 Cristintina 2020-08-27 2020-08-27 Outpatient MHIE MHIE [id number] Memoria 08:30:00 08:30:00 06 marysol Simmons 2020-08-21 2020-08-23 Phone nullFlavo MHMG [id number] Memoria 16:55:48 04:59:59 Message r Primary 01 l [facility] 2020-08-21 2020-08-22 Outpatient MHMG MHMG [id number] 11:55:48 23:59:59 2020-08-19 2020-08-19 Ambulatory nullFlavo MHMG [id number] Memoria 20:45:00 20:45:00 Pre-Reg r Primary 05 [facility] 2020-08-19 2020-08-19 Outpatient MHIE MHIE [id number] Memoria 15:45:00 15:45:00 05 marysol [place] 2020-08-19 2020-08-19 Outpatient Jonathan, MHMG MHMG [id number] 15:45:00 15:45:00 Lizbeth 05 Jodi 2020-08-10 2020-08-12 Phone nullFlavo MHMG [id number] Memoria 14:06:38 04:59:59 Message r Primary 00 [facility] 2020-08-10 2020-08-11 Outpatient MHMG MHMG [id number] 09:06:38 23:59:59 2020-07-22 2020-07-23 Outpatient nullFlavo MHMG [id number] Memoria 13:00:00 04:59:[address] [facility] 2020-07-22 2020-07-22 Outpatient Jonathan, MHMG MHMG [id number] 08:00:00 23:59:59 Lizbeth 03 [place] 2020-07-22 2020-07-22 Outpatient MHIE MHIE [id number] Memoria 08:00:00 08:00:00 03 marysol [place] 2020-07-17 2020-07-18 Outpatient nullFlavo MNA [id number] Memoria 20:00:00 04:59:59 r Neurology 02 l Willa Simmons 2020-07-17 2020-07-17 Outpatient MILLI VillafanaSCHCARTER ROSENDOSCHER [id number] 15:00:00 23:59:59 Mitch Laron Call 2020-07-17 2020-07-17 Outpatient MHIE MHIE [id number] Memoria 15:00:00 15:00:00 02 l [place] 2020-05-09 2020-05-10 [facility]1 [id number] Methodi 15:26:00 14:30:[address] 3.430.2.7 Hospit a .3.373397 l .8 2020-05-09 2020-05-10 Outpatient [facility] [id number] [place] [address] 00:00:00 00:00:[address] 2020-05-05 2020-05-05 Travel 1.2.840.1 1.2.616.134 [id number] Methodi 00:00:00 00:00:[address] 3.430.2.7 0.2.7.3.698 Ho spita .3.831046 084.8 l .8 2020-01-15 2020-01-15 Eddie MCDUFFIE [place] - [id number] [place] 00:00:00 00:00:00 Yessi England Medical MD: [address] [place] [address], [place] [address] , Ph. 2019-04-24 2019-04-24 Eddie MCDUFFIE [place] - [id number] [place] 00:00:00 00:00:00 Yessi England MD: [address] [place] [address], [place] [address] , Ph. 2019-04-09 2019-04-09 Chelly MUKHERJEE [place] - [id number] [place] 00:00:00 00:00:00 Anna Maria MD: [address], [place], [place] [facility] [address] [facility] , Ph. h [phone]) Program 2018-09-11 2018-09-11 Eddie MMG [place] - [id number] [place] 00:00:00 00:00:00 Yessi England Medical MD: [address] [facility], [facility] [address], [place] [address] , Ph. 2018-06-25 2018-06-25 Eddie MMG [place] - [id number] [place] 00:00:00 00:00:00 Yessi England Medical MD: [address] [facility], [facility] [address], [place] [address] , Ph. 2018-06-14 2018-06-14 Eddie MMG [place] - [id number] [place] 00:00:00 00:00:00 Yessi England MD: [address] [facility] [address], [place] [address] , Ph. 2016-07-21 2016-07-21 [facility] [id number] Memoria 10:30:00 10:30:00 01 marysol Simmons 2015-07-13 2015-07-13 Outpatient [facility] [id number] Memoria 09:15:00 09:15:00 00 marysol Simmons Results Test Description Test Time Test Comments Results Result Comments Source ECG 12 lead 2020-05-11 02:53:13 Test Item Value Reference Range Interpretation Comme nts Ventricular rate (test code = 253) Atrial rate (test code = 255) NC interval (test code = 266) QRSD interval (test code = 260) QT interval (test code = 264) QTC interval (test code = 265) P axis 1 (test code = 267) QRS axis 1 (test code = 268) T wave axis (test code = 270) EKG impression (test code = 273) Som Conti carotid [id number] 02:26:00 Vascular Ultrasound Laboratory Carotid Artery Duplex Report [address] [facility], [place] [address], [place] [address] For quality tester purposes, the categorization of the degree of the stenosis of this exam is based on criteria described in the IAC carotid stenosis grading white paper( www.intersocietal.org/Vascular) and Marcella Allen., Seth Colon., et al. Carotid artery stenosis: desouza-scale and Doppler US diagnosis--Society of Radiologists in Ultrasound Consensus Conference. Radiology. 2003 Nov; 229(2):340-6. Pat.Name: OLIVER AMBRIZ Pat.ID: [id number] .Date: 05/10/2020 Refer.MD: MIRNA MEI DO Exam Time: 2:07:00 PM Study Type:Carotid Weight: 162lb Age: 7 1945,74Y Sex: FEMALE Sonogrphr: Rita Dorantes RVT Pat. Stat.:Inpatient Room: [place] [address] Tape Vol: RF, CPT - 4: 55441 Echo Event ID:[id number] Order ID: [id number] Reason for Study:Evaluation for possible carotid artery disease. Procedures: Colorflow, Grayscale/2D, Power Doppler ImagingRace: C SUMMARY: PHYSICAL ASSESSMENT Blood Pressure Right 132/62 Left ___ CAROTID ARTERY SCANRIGHT: There is smooth intima lining of the common carotid artery.There is hard and calcified plaque noted in the bulb extending intothe internal carotid artery and external carotid artery. Colorflow isnormal. Unable to visualize the vertebral artery. LEFT: There is smooth intima lining of the common carotid artery.There is hard and calcified plaque noted in the bulb extending intothe internal carotid artery. Theexternal carotid artery is clear.Colorflow is normal. PRELIMINARY FINDINGS1. <50% stenosis of the bulb and internal carotid artery, bilaterally.2. <50% stenosis of the right external carotid artery.PHYSICIAN INTERPRETATION Bilateral carotid duplex examination demonstrated atheroscleroticplaques in the bulbs. Less than 50% stenosis in the bulb and internal carotid artery,bilaterally.Right VA was not seen. Left VA is antegrade. FINDINGS: Carotid Findings: Right Left Verteb.Flw Not Visualized Antegrade Subclavian Triphasic Biphasic MEASUREMENTS: ----- DOPPLERRight CCA Dist CCA Dist PSV 61 cm/s CCA Dist EDV 14.7 cm/sRight CCA Mid CCA Mid PSV 66.2 cm/s CCA Mid EDV 15.6 cm/sRightCCA Prox CCA Prox PSV 68.8 cm/s CCA Prox EDV 14.7 cm/sRight ECA Prox ECA Prox PSV 96.9 cm/s ECA Prox EDV 0 cm/sRight ICA Dist ICA Dist PSV 70.5 cm/s ICA Dist EDV 23 cm/sRight ICA Mid ICA Mid PSV 70.5 cm/s ICA Mid EDV 21.9 cm/sRight ICA Prox ICA Prox PSV 77.1 cm/s ICA Prox EDV 18.9 cm/sLeft CCA Dist CCA Dist PSV 72.4 cm/s CCA Dist EDV 15.3 cm/sLeft CCA Mid CCA Mid PSV 63.6 cm/s CCA Mid EDV 13.1 cm/sLeft CCA Prox CCA Prox PSV 59.2 cm/s CCA Prox EDV 14.2 cm/sLeft ECA Prox ECA Prox PSV 69.1 cm/s ECA Prox EDV 0 cm/sLeft ICA Dist ICA Dist PSV 43.4 cm/s ICA Dist EDV 6.45 cm/sLeft ICA Mid ICA Mid PSV 93 cm/s ICA Mid EDV 26.9 cm/sLeft ICA Prox ICA Prox PSV 78.8 cm/s ICA Prox EDV 27 cm/sLeft Vertebral Vertebral PSV 29.5 cm/s Vertebral EDV 5.43 cm/sRight ICA/CCA Ratio ICA/CCA PSV 1.16 Left ICA/CCA Ratio ICA/CCA PSV 1.24 Signed 05/10/2020 08:26 PMJohnnie Valdivia MD, RPVIInterce, Radiology Results In - 05/10/2020 8:26 PM CST Vascular Ultrasound Laboratory Carotid Artery Duplex Report [address] [place] [address] For quality tester purposes, the categorization of the degree of the stenosis of this exam is based on criteria described in the IAC carotid stenosis grading white paper( www.intersocietal.org/Vascular) and Marcella Allen., Seth Colon., et al. Carotid artery stenosis: desouza-scale and Doppler US diagnosis--Society of Radiologists in Ultrasound Consensus Conference. Radiology. 2003 Nov; 229(2):340-6. Pat.Name: OLIVER MABRIZ Pat.ID: [id number] .Date: 05/10/2020 Refer.MD: MIRNA MEI DO Exam Time: 2:07:00PM Study Type:Carotid Weight: 162lb Age: [birth year]74Y Sex: FEMALE Sonogrphr: Rita Dorantes RVT Pat. Stat.:Inpatient Room: [place] [address] Tape Vol: RF, CPT - 4: 98034 Echo Event ID:[id number] Order ID: [id number] Reason for Study:Evaluation for possible carotid artery disease. Procedures: Colorflow, Grayscale/2D, Power Doppler ImagingRace: C SUMMARY:--- PHYSICAL ASSESSMENT Blood Pressure Right 132/62 Left ___ CAROTID ARTERY SCANRIGHT: There is smooth intima lining of the common carotid artery.There is hard and calcified plaque noted in the bulb extending intothe internal carotid artery and external carotid artery. Colorflow isnormal. Unable to visualize the vertebral artery. LEFT: Thereis smooth intima lining of the common carotid artery.There is hard and calcified plaque noted in thebulb extending intothe internal carotid artery. The external carotid artery is clear.Colorflow is normal. PRELIMINARY FINDINGS1. <50% stenosis of the bulb and internal carotid artery, bilaterally.2. <50% stenosis of the right external carotid artery.PHYSICIAN INTERPRETATION Bilateral carotid duplex examination demonstrated atheroscleroticplaques in the bulbs. Less than 50% stenosis in the bulb and internal carotid artery,bilaterally.Right VA was not seen. Left VA is antegrade. FINDINGS: Carotid Findings: Right Left Verteb.Flw Not Visualized Antegrade Subclavian Triphasic Biphasic -------MEASUREMENTS: DOPPLERRightCCA Dist CCA Dist PSV 61 cm/s CCA Dist EDV 14.7 cm/sRight CCA Mid CCA Mid PSV 66.2 cm/s CCA Mid EDV 15.6 cm/sRight CCA Prox CCA Prox PSV 68.8 cm/s CCA Prox EDV 14.7 cm/sRight ECA Prox ECA Prox PSV 96.9 cm/s ECA Prox EDV 0 cm/sRight ICA Dist ICA Dist PSV 70.5 cm/s ICA Dist EDV 23 cm/sRight ICA Mid ICA Mid PSV 70.5 cm/s ICA Mid EDV 21.9 cm/sRight ICA Prox ICA Prox PSV 77.1 cm/s ICA Prox EDV 18.9 cm/sLeft CCA Dist CCA Dist PSV 72.4 cm/s CCA Dist EDV 15.3 cm/sLeft CCA Mid CCA Mid PSV 63.6 cm/s CCA Mid EDV 13.1 cm/sLeft CCA Prox CCA ProxPSV 59.2 cm/s CCA Prox EDV 14.2 cm/sLeft ECA Prox ECA Prox PSV 69.1 cm/s ECA Prox EDV 0 cm/sLeft ICA Dist ICA Dist PSV 43.4 cm/s ICA Dist EDV 6.45 cm/sLeft ICA Mid ICA Mid PSV 93 cm/s ICA Mid EDV 26.9 cm/sLeft ICA Prox ICA ProxPSV 78.8 cm/s ICA Prox EDV 27 cm/sLeft Vertebral Vertebral PSV 29.5 cm/s Vertebral EDV 5.43 cm/sRight ICA/CCA Ratio ICA/CCA PSV 1.16 Left ICA/CCA Ratio ICA/CCA PSV 1.24 Signed 05/10/2020 08:26 PMZsolt Skip MD, [facility] HospitalTransthoracic Echocardiogram Complete, (w Contrast, Strain and 3D if needed)2020-05-10 17:42:00 Echocardiography Report [address]Name: OLIVER AMBRIZ.ID: [id number] .Date: 05/10/2020 Refer.MD: MIRNA MEI DO Exam Time: 7:31:00 AM Study Type:Routine Echo Height: 62in Weight: 162lb BSA: 1.75 m2 Age: [birth year]74Y Sex: FEMALE BP: 132/58 HR: 51 bpm Sonogrphr: FORREST Lindsey Pat. Stat.:Inpatient Room: [facility] Study Status:Final Echo Event ID:[id number] Order ID: [id number] Reason for Study:stroke Procedures: 2D Echo, Colorflow Doppler, Portable, Intravenous LumasonContrast SUMMARY: LV EF is normal. Estimated EF is 65-69%RV systolic function is normal.Diastolic dysfunction Grade I (Mild): Impaired relaxation with normalLV filling pressures.Estimated PA systolic pressure is 25 mmHg, assuming a mean RAP of 5mmHg. FINDINGS:--- LV: LV size is normal. LV EF is normal. Overall wall motion is normal. Estimated EF is 65-69%RV: RV size is normal. RV systolic function is normal.LA: LA size is normal.RA: RA volume is difficult to assess.AO: Aortic root diameteris normal.GERHARD: No pericardial effusion.AV: No structural AV abnormalities noted.MV:No structural MV abnormalities noted.PV: No structural PV abnormalities noted.TV: No structural TV abnormalities noted. Mild tricuspid regurgitation Hedrick: Diastolic dysfunctionGrade I (Mild): Impaired relaxation with normal LV filling pressures.Other: Estimated PAsystolic pressure is 25 mmHg, assuming a mean RAP of 5 mmHg. ----MEASUREMENTS: 2DParasternalLong [place] Ao An 1.7 cm LVPWd 0.9 cm Ao Rtd 3 cm Index 1.7 cm/m2 LA Ds 3.3 cm IVSd 0.7 cmRWT 0.4 LVIDd 4.4 cm Index 2.5 cm/m2 LV Mass 105.5 g (87-129) LVIDs 2.5 cm LVM Index 60.3 g/m2 LV%fs 43.6 % LVOT 1.8 cm LA Sng Plane LA Area 17.6 cm2 (8.8-23.4) LA Vol 48.4 ml Index 27.6 ml/m2 LA LngAx 5.3 cm LVOT LVOT Area 2.6 cm2 DOPPLERLVOT Stroke Vol & Cardiac Out LVOTTVI 17.2 cm HR 48 bpm LVOT LVOT SV 44.7 ml LVOT CO 2.1 l/min SVi 25.5 ml/m2 LVOT CI 1.2 l/m/m2 Signed 05/10/2020 11:42 AMMohammed MD [facility], Radiology Results In - 05/10/2020 11:43 AM CST Echocardiography Report [address] [place] [address] Pat.Name: OLIVER AMBRIZ Pat.ID: [id number] .Date: 05/10/2020 Refer.MD: MIRNA MEI DO Exam Time: 7:31:00 AM Study Type:Routine Echo Height: 62in Weight: 162lb BSA: 1.75 m2 Age: 7 1945,74Y Sex: FEMALE BP: 132/58 HR: 51 bpm Sonogrphr: FORREST Lindsey Pat. Stat.:Inpatient Room: [facility] Study Status:Final Echo Event ID:[id number] Order ID: [id number] Reason for Mehrdad dy:stroke Procedures: 2D Echo, Colorflow Doppler, Portable, Intravenous LumasonContrast--- SUMMARY: LV EF is normal. Estimated EF is 65-69%RV systolic function is normal.Diastolic dysfunction Grade I (Mild): Impaired relaxation with normalLV filling pressures.Estimated PA systolic pressure is 25 mmHg, assuming a mean RAP of 5mmHg. FINDINGS: -------LV: LV size is normal. LV EF is normal. Overall wall motion is normal. Estimated EF is 65-69%RV: RV size is normal. RV systolic function is normal.LA: LA size is normal.RA: RA volumeis difficult to assess.AO: Aortic root diameter is normal.GERHARD: No pericardial effusion.AV: No structural AV abnormalities noted.MV: No structural MV abnormalities noted.PV:No structural PV abnormalities noted.TV: No structural TV abnormalities noted. Mild tricuspid regurgitation Hedrick: Diastolic dysfunction Grade I (Mild): Impaired relaxation with normal LV filling pressures.Other: Estimated PA systolic pressure is 25 mmHg, assuming a mean RAP of 5 mmHg. MEASUREMENTS: 2DParasternal [place] Ao An 1.7 cm LVPWd 0.9 cm Ao Rtd 3 cm Index 1.7 cm/m2 LA Ds 3.3 cm IVSd 0.7 cm RWT 0.4 LVIDd 4.4cm Index 2.5 cm/m2 LV Mass 105.5 g (87-129) LVIDs2.5 cm LVM Index 60.3 g/m2 LV%fs 43.6 % LVOT 1.8 cm LA Sng Plane LA Area 17.6 cm2 (8.8-23.4) LA Vol 48.4 ml Index 27.6 ml/m2 LA LngAx 5.3 cm LVOT LVOT Area 2.6 cm2 DOPPLERLVOT Stroke Vol & Cardiac Out LVOT TVI 17.2 cm HR 48 bpm LVOT LVOT SV 44.7 ml LVOT CO 2.1 l/min SVi 25.5 ml/m2 LVOT CI 1.2 l/m/m2 Signed 05/10/2020 11:42 ELOINAMohamsunshine Scott [facility] Brain Wo [id number] 16:24:44EXAMINATION: MRI BRAIN WO CONTRAST CLINICAL HISTORY: stroke COMPARISON: Head CT on 05/09/2020. TECHNIQUE: Standard noncontrast brain MRI. FINDINGS: No evidence of acute infarction, hemorrhage, mass lesion, or midline shift. Mild sparsely scattered punctate foci of T2 prolongation in periventricular and subcortical white matter are nonspecific but probably from chronic ischemic small vessel disease.Ventricles, sulci, and cisterns are normal in size and configuration. No extra-axial fluid collection. Flow voids of the major intracranial vessels are intact. Small mucous retention cyst is noted along the floor of the left maxillary sinus. Mastoid air cells are underdeveloped. Left intraocular lens implant is noted. Bones and soft tissues are unremarkable. IMPRESSION: No acute intracranial abnormality. [id number] Interface, Radiology Results Incoming - 05/10/2020 10:27 AM CST EXAMINATION: MRI BRAIN WO CONTRASTCLINICAL HISTORY: strokeCOMPARISON: Head CT on 05/09/2020.TECHNIQUE: Standard noncontrast brain MRI.FINDINGS:No evidence of acute infarction, hemorrhage, mass lesion, or midline shift. Mild sparsely scattered punctate foci ofT2 prolongation in periventricular and subcortical white matter are nonspecific but probably from chronic ischemic small vessel disease.Ventricles, sulci, and cisterns are normal in size and configuration. No extra-axial fluid collection. Flow voids of the major intracranial vessels are intact.Small mucous retention cyst is noted along the floor of the left maxillary sinus. Mastoid air cells are underdeveloped. Left intraocular lens implant is noted. Bones and soft tissues are unremarkable.IMPRESSION:No acute intracranial abnormality.[id number] HospitalUrinalysis, automated with [id number] 06:01:07 Test Item Value Reference Range Interpretation Comments Color, UA (test code = Straw 5778-6) Appearance, UA (test Clear code = 5767-9) Specific gravity, UA 1.001-1.035 H (test code = 5811-5) pH, UA (test code = 5.0-8.5 5803-2) Protein, UA (test code = Negative Negative 67772-6) Glucose, UA (test code = Negative Negative 35988-2) Ketones, UA (test code = Negative Negative 2514-8) Bilirubin, UA (test code Negative Negative = 5770-3) Blood, UA (test code = Negative Negative 5794-3) Nitrite, UA (test code = Negative Negative 5802-4) Urobilinogen, UA (test <2.0 A code = 36038-1) Leukocyte esterase, UA Moderate Negative A (test code = 5799-2) Epithelial cells, UA See_Comment [Autom ated message] (test code = 5787-7) The sys tem which generated this result transmit klaudia reference range : /HPF. The refer ence range was not u sed to interpret th is result as normal/abnormal . WBC, UA (test code = See_Comment H [Autom ated message] 5821-4) The system [employer] generated this result transmit klaudia reference range : 0 - 4 /HPF. The reference range was not used to interpret this result as normal/abnormal . RBC, UA (test code = See_Comment [Autom ated message] 13043-8) The system [employer] generated this result transmit klaudia reference range : 0 - 5 /HPF. The reference range was not used to interpret this result as normal/abnormal . Bacteria, UA (test code Few None seen = 67138-3) Yeast, UA (test code = None seen 91299-5) Yeast with pseudohyphae, None seen UA (test code = 17791-2) Lab Interpretation (test Abnormal code = 32156-5) [facility] Ne[facility] W Wo [id number] 23:35:03EXAM: CT ANGIOGRAM NECK W WO CONTRAST CLINICAL HISTORY: Stroke TIA assess extracranial arteries TECHNIQUE: Imaging of the cervical circulation was obtained from the upper thorax to the skull base during the arterial phase of enhancement. Postprocessing was performed with MIP multiplanar and 3D reconstructed images. CT scans are performed using radiation dose reduction techniques. Technical factorsare evaluated and adjusted to ensure appropriate moderation of exposure. Automated dose management technology is applied to adjust radiation exposure while achieving a diagnostic quality image. COMPARISON: None FINDINGS: Moderate amount of irregular plaque and mild amount of calcifications seen at th e aortic arch. A [id number] amount of calcifications and plaque seen at the bilateral carotid bifurcations and origins of the internal carotid arteries. The common carotid arteries, carotid bulbs, internal carotid arteries and external carotid arteries are otherwise opacified with less than 10% stenosis by NASCET criteria. The vertebral arteries are patent throughout the visualized cervical segments without significant stenosis. Patient is right vertebral artery dominant. Visualized soft tissues shows no mass, adenopathy or fluid collection. No large, irregular thyroid nodule or mass is present. Lung apices are without evidence of focal consolidation or suspicious pulmonary nodule. Lower lung volumes with atelectatic changes noted. In azygous right upper lobe is also seen. Visualized osseous structures shows no acute fracture or dislocation. To moderate disc height loss, history, and chronic severe foraminal narrowing is seen at the C5-C6 level. It is important to note that the current CTA of the neck is not tailored to evaluate the extent of thecal sac stenosis and foraminal narrowing.Taking this into consideration, no acute thecal sac stenosis or foraminal narrowing. IMPRESSION: 1.A duib-hf-bvpdiyzz amount of calcifications and plaque seen at the bilateral carotid bifurcations andorigins of the internal carotid arteries with less than 10% % stenosis by NASCET criteria.2.Bilateral vertebral arteries are patent throughout.3.Moderate amount of irregular plaque and mild amount of calcifications seen at the aortic arch.4.Additional chronic findings as detailed above. [id number], Radiology Results Incoming - 05/09/2020 5:38 PM CST EXAM: CT ANGIOGRAM NECK W WO CONTRASTCLINICAL HISTORY: Stroke TIA assess extracranial arteriesTECHNIQUE: Imaging of the cervical circulation was obtained from the upper thorax to the skull base during the arterial phase of enhancement. Postprocessing was performed with MIP multiplanar and 3D reconstructed images. CT scans are performed using radiation dose reduction techniques. Technical factors are evaluated and adjusted to ensure appropriate moderation of exposure. Automated dose management technology is applied to adjust radiation exposure while achieving a diagnostic quality image.COMPARISON: NoneFINDINGS:Moderate amount of irregular plaque and mild amount of calcifications seen at the aortic arch.A fqgx-sv-zfwcnxmk amount of calcifications and plaque seen at the bilateral carotid bifurcations and origins of the internal carotid arteries.The common carotid arteries,carotid bulbs, internal carotid arteries and external carotid arteries are otherwise opacified with less than 10% stenosis by NASCET criteria. The vertebral arteries are patent throughout the visualized cervical segments without significant stenosis.Patient is right vertebral artery dominant.Visualized soft tissues shows no mass, adenopathy or fluid collection.No large, irregular thyroid nodule or mass is present.Lung apices are without evidence of focal consolidation or suspicious pulmonary nodule.Lower lung volumes with atelectatic changes noted. In azygous right upper lobe is also seen.Visualized osseous structures shows no acute fracture or dislocation. To moderate disc height loss, history, and chronic severe foraminal narrowing is seen at the C5-C6 level. It is important to note that the current CTA of the neck is not tailored to evaluate the extent of thecal sac stenosis and foraminal narrowing. Taking this into consideration, no acute thecal sac stenosis or foraminal narrowing.IMPRESSION:1.A xgfa-xi-eaegpboo amount of calcifications and plaque seen at the bilateral carotid bifurcations and origins of the internal carotid arteries with less than 10% % stenosis by NASCET criteria.2.Bilateral vertebral arteries are patent throughout.3.Moderate amount of irregular plaque and mild amountof calcifications seen at the aortic arch.4.Additional chronic findings as detailed above.[id number] 2020-05-09 23:31:28EXAM: CT ANGIOGRAM HEAD W WO CONTRAST CLINICAL HISTORY: Stroke TIA assess extracranial arteries TECHNIQUE: Imaging of the intracranial circulation was obtained from the skull base to the vertex during the arterial phase of enhancement. Postprocessing was performed with MIP multiplanar and 3D reconstructed images. CT scans are performed using radiation dose reduction techniques. Technical factors are evaluated and adjusted to ensure appropriate moderation of exposure. Automated dose management technology is applied to adjust radiation exposure while achieving a diagnostic quality image. COMPARISO N: CT stroke, performed concurrently FINDINGS: Few subtle scattered calcifications are identified within the bilateral cavernous to supraclinoid ICAs without significant luminal irregularity. No hemodynamically significant stenosis is identified of the intracranial internal carotid arteries, middle c erebral arteries, anterior cerebral arteries, intracranial vertebral arteries, basilar artery or posterior cerebral arteries. Patient is noted to be right vertebral artery dominant. There is no aneurysmal dilatation or vascular malformation of the [place]. The major dural sinuses are opacified normally. IMPRESSION: 1.No hemodynamically significant narrowing of the [place] vessels.[id number] Interface, Radiology Results 05/09/2020 5:34 PM CST EXAM: CT ANGIOGRAM HEAD W WO CONTRASTCLINICAL HISTORY: Stroke TIA assess extracranial arteriesTECHNIQUE: Imaging of the intracranial circulation was obtained from the skull base to the vertex during the arterial phase of enhancement. Postprocessing was performedwith MIP multiplanar and 3D reconstructed images. CT scans are performed using radiation dose reduction techniques. Technical factors are evaluated and adjusted to ensure appropriate moderation of exposure. Automated dose management technology is applied to adjust radiation exposure while achieving adiagnostic quality image.COMPARISON: CT stroke, performed concurrentlyFINDINGS:Few subtle scatteredcalcifications are identified within the bilateral cavernous to supraclinoid ICAs without significant luminal irregularity.No hemodynamically significant stenosis is identified of the intracranial internal carotid arteries, middle cerebral arteries, anterior cerebral arteries, intracranial vertebral arteries, basilar artery or posterior cerebral arteries. Patient is noted to be right vertebral arterydominant. There is no aneurysmal dilatation or vascular malformation of the [place].The major dural sinuses are opacified normally.IMPRESSION:1.No hemodynamically significant narrowing of the [place] vessels.[id number] [id number]-8 (COVID-19) RNA [Presence] in Respiratory specimen by HAILEE with probe [id number] 23:05:47 Test Item Value Reference Range Interpretation Comments SARS-CoV-2 (COVID-19) RNA Not detected Not-Detected [Presence] in Respiratory specimen by HAILEE with probe detection (test code = 70237-1) CT Stroke Brain Wo [id number] 22:23:40Study: CT STROKE BRAIN WO CONTRAST History:Transient ischemic attack (TIA) COMPARISON:None. TECHNIQUE: Multiple axial CT images of the head obtained without IV contrast. Sagittal and coronal reconstructions were performed. CT imaging was performed with iterative reconstruction technique and/or automated exposure control to reduce radiation dose. FINDINGS: Parenchymal volume is normal. There is no acute hemorrhage, midline shift, hydrocephalus, edema, or extra-axial collections. .There is no mucus inthe posterior ethmoid air cell. The mastoid air cells are well aerated. The calvarium is intact. The visualized orbits are unremarkable. IMPRESSION: No acute intracranial abnormality. Dr. Hook notified 4:23 PM 05/09/2020 [facility]- [id number] Interface, Radiology Results Incoming - 05/09/2020 4:26 PM CST Study: CT STROKE BRAIN WO CONTRASTHistory:Transient ischemic attack (TIA)COMPARISON:None.TECHNIQUE: Multiple axial CT images of the head obtained without IV contrast. Sagittal and coronal reconstructions were performed.CT imaging was performed with iterative reconstruction technique and/or automated exposure control to reduce radiation dose.FINDINGS:Parenchymal volume is normal. There is no acute hemorrhage, midline shift, hydrocephalus, edema, or extra- axial collections. .There is no mucus in the posterior ethmoid air cell. The mastoid air cells are well aerated. The calvarium is intact. The visualized orbits are unremarkable.IMPRESSION:No acute intracranial abnormality. Dr. Hook notified 4:23 PM 05/09/2020[facility]-[id number] Differential panel - [id number] 09:31:00 Test Item Value Reference Range Interpretation Comments white blood count (test code = 5.3 K/uL 4.0-11.5 white blood count) red blood count (test code = red 4.96 M/uL 3.80-5.20 blood count) hemoglobin (test code = 15.0 g/dL 10.5-15.7 hemoglobin) hematocrit (test code = 44.3 % 34.0-50.0 hematocrit) Erythrocyte mean corpuscular 89.3 fL 86-100 volume [Entitic volume] (test code = 83440-4) mean corpuscular hemoglobin (test 30.2 pg 26.2-33.4 code = mean corpuscular hemoglobin) mean corpuscular HGB conc (test 33.9 g/dL 30-34 code = mean corpuscular HGB conc) red cell distribution width (test 12.2 % 12.0-15.5 code = red cell distribution width) platelet count (test code = 265 K/uL 165-450 platelet count) mean platelet volume (test code = 8.1 fL 9.4-12.6 L mean platelet volume) Neutrophils.segmented/100 53.7 % 44.4-80.1 leukocytes in Blood (test code = 92978-0) Granulocytes Immature [#/volume] 0.0 K/uL 0.0-0.03 H in Blood (test code = 94937-1) lymphocyte% (test code = 33.0 % 10.0-50.0 lymphocyte%) mono % (test code = mono %) 10.2 % 3.6-12.0 eos % (test code = eos %) 1.7 % 0.0-5.4 Basophils/100 leukocytes in 0.8 % 0.1-1.2 Unspecified specimen (test code = 16026-2) Neutrophils.band form [#/volume] 2.86 K/uL 1.56-6.13 in Blood (test code = 44709-9) Lymphocytes [#/volume] in 1.8 K/uL 1.18-3.74 Unspecified specimen by Automated count (test code = 55844-5) mono # (test code = mono #) 0.54 K/uL 0.24-0.86 eos # (test code = eos #) 0.09 K/uL 0.04-0.36 basophil # (test code = basophil 0.04 K/uL 0.01-0.08 #) NRBC% (test code = NRBC%) 0 /100 WBC 0-0.2 NRBC# (test code = NRBC#) 0 K/uL [facility] 2000 [facility] - Serum or Plasma 2019-04-04 09:31:00 Test Item Value Reference Range Interpretation Comments Glucose [Mass/volume] in Serum or 99 mg/dL 82-115 Plasma (test code = 2345-7) Urea nitrogen [Mass/volume] in 15 mg/dL 8-23 Serum or Plasma (test code = 3094-0) osmolality calculated,serum (test 275 mOsm/kg 280-300 L code = osmolality calculated,serum) creatinine (test code = 0.9 mg/dL 0.50-0.90 creatinine) glomerular filtration rate (test >60.00 code = glomerular filtration rate) Urea nitrogen/Creatinine [Mass 16.7 12-20 Ratio] in Serum or Plasma (test code = 3097-3) sodium level (test code = sodium 137 mmol/L 135-145 level) potassium level (test code = 4.1 mmol/L 3.5-5.2 potassium level) chloride level (test code = 99 mmol/L 98-108 chloride level) CO2 (test code = CO2) 28 mmol/L 21-32 anion gap (test code = anion gap) 14.1 mEq/L 12-20 calcium level (test code = 9.2 mg/dL 8.8-10.2 calcium level) total protein (test code = total 7.8 g/dL 6.6-8.7 protein) albumin (test code = albumin) 4.4 g/dL 3.5-5.2 globulin (test code = globulin) 3.4 gm/dL A/G ratio (test code = A/G ratio) 1.3 >1.0 bilirubin,total (test code = 0.6 mg/dL 0.0-1.2 bilirubin,total) AST/SGOT (test code = AST/SGOT) 19 U/L 15-32 Alanine aminotransferase 18 U/L 0-33 [Enzymatic activity/volume] in Serum or Plasma (test code = 1742-6) Alkaline phosphatase [Enzymatic 82 U/L 35-105 activity/volume] in Serum or Plasma (test code = 6768-6) [facility] 1996 panel - Serum or [id number] 09:31:00 Test Item Value Reference Range Interpretation Comments cholesterol level (test code = 188 mg/dL 150-200 cholesterol level) triglycerides level (test code = 173 mg/dL <150 H triglycerides level) HDL cholesterol (test code = HDL 46 mg/dL >65 L cholesterol) LDL cholesterol direct (test code = 120 mg/dL <100 H LDL cholesterol direct) cholesterol risk ratio (test code = 4.086 cholesterol risk ratio) [facility] W Auto Differential panel - [id number] 09:31:00 Test Item Value Reference Range Interpretation Comments white blood count (test code = 5.3 K/uL 4.0-11.5 white blood count) red blood count (test code = red 4.96 M/uL 3.80-5.20 blood count) hemoglobin (test code = 15.0 g/dL 10.5-15.7 hemoglobin) hematocrit (test code = 44.3 % 34.0-50.0 hematocrit) Erythrocyte mean corpuscular 89.3 fL 86-100 volume [Entitic volume] (test code = 05704-1) mean corpuscular hemoglobin (test 30.2 pg 26.2-33.4 code = mean corpuscular hemoglobin) mean corpuscular HGB conc (test 33.9 g/dL 30-34 code = mean corpuscular HGB conc) red cell distribution width (test 12.2 % 12.0-15.5 code = red cell distribution width) platelet count (test code = 265 K/uL 165-450 platelet count) mean platelet volume (test code = 8.1 fL 9.4-12.6 L mean platelet volume) Neutrophils.segmented/100 53.7 % 44.4-80.1 leukocytes in Blood (test code = 93516-6) Granulocytes Immature [#/volume] 0.0 K/uL 0.0-0.03 H in Blood (test code = 65880-7) lymphocyte% (test code = 33.0 % 10.0-50.0 lymphocyte%) mono % (test code = mono %) 10.2 % 3.6-12.0 eos % (test code = eos %) 1.7 % 0.0-5.4 Basophils/100 leukocytes in 0.8 % 0.1-1.2 Unspecified specimen (test code = 75825-6) Neutrophils.band form [#/volume] 2.86 K/uL 1.56-6.13 in Blood (test code = 82059-1) Lymphocytes [#/volume] in 1.8 K/uL 1.18-3.74 Unspecified specimen by Automated count (test code = 81068-5) mono # (test code = mono #) 0.54 K/uL 0.24-0.86 eos # (test code = eos #) 0.09 K/uL 0.04-0.36 basophil # (test code = basophil 0.04 K/uL 0.01-0.08 #) NRBC% (test code = NRBC%) 0 /100 WBC 0-0.2 NRBC# (test code = NRBC#) 0 K/uL [facility] 2000 panel - Serum or Plasma 2019-04-04 09:31:00 Test Item Value Reference Range Interpretation Comments Glucose [Mass/volume] in Serum or 99 mg/dL 82-115 Plasma (test code = 2345-7) Urea nitrogen [Mass/volume] in 15 mg/dL 8-23 Serum or Plasma (test code = 3094-0) osmolality calculated,serum (test 275 mOsm/kg 280-300 L code = osmolality calculated,serum) creatinine (test code = 0.9 mg/dL 0.50-0.90 creatinine) glomerular filtration rate (test >60.00 code = glomerular filtration rate) Urea nitrogen/Creatinine [Mass 16.7 12-20 Ratio] in Serum or Plasma (test code = 3097-3) sodium level (test code = sodium 137 mmol/L 135-145 level) potassium level (test code = 4.1 mmol/L 3.5-5.2 potassium level) chloride level (test code = 99 mmol/L 98-108 chloride level) CO2 (test code = CO2) 28 mmol/L 21-32 anion gap (test code = anion gap) 14.1 mEq/L 12-20 calcium level (test code = 9.2 mg/dL 8.8-10.2 calcium level) total protein (test code = total 7.8 g/dL 6.6-8.7 protein) albumin (test code = albumin) 4.4 g/dL 3.5-5.2 globulin (test code = globulin) 3.4 gm/dL A/G ratio (test code = A/G ratio) 1.3 >1.0 bilirubin,total (test code = 0.6 mg/dL 0.0-1.2 bilirubin,total) AST/SGOT (test code = AST/SGOT) 19 U/L 15-32 Alanine aminotransferase 18 U/L 0-33 [Enzymatic activity/volume] in Serum or Plasma (test code = 1742-6) Alkaline phosphatase [Enzymatic 82 U/L 35-105 activity/volume] in Serum or Plasma (test code = 6768-6) [facility] - Serum or [id number] 09:31:00 Test Item Value Reference Range Interpretation Comments cholesterol level (test code = 188 mg/dL 150-200 cholesterol level) triglycerides level (test code = 173 mg/dL <150 H triglycerides level) HDL cholesterol (test code = HDL 46 mg/dL >65 L cholesterol) LDL cholesterol direct (test code = 120 mg/dL <100 H LDL cholesterol direct) cholesterol risk ratio (test code = 4.086 cholesterol risk ratio) [facility] [id number] 00:20:00 Test Item Value Reference Range Interpretation Comments Sodium (test code = 137 mmol/L 135-145 N NA) Potassium (test 4.4 mmol/L 3.5-5.1 N code = K) Chloride (test code 102 mmol/L 98-105 N = CL) Carbon Dioxide 23 mmol/L 22-29 N (test code = CO2) Glucose (test code 90 mg/dL 70-115 N = GLU) Blood Urea Nitrogen 16 mg/dL 8-23 N (test code = BUN) Creatinine (test 0.8 mg/dL 0.5-0.9 N code = CREAT) Calcium (test code 8.7 mg/dL 8.3-10.5 N = CA) Prot Total (test 7.3 g/dL 6.4-8.3 N code = TP) Albumin (test code 4.4 g/dL 3.5-5.2 N = ALB) A/G Ratio (test 1.5 Ratio code = AGRATIO) Globulin (test code 2.9 2.9-3.1 N = GLOB) Bili Total (test 0.8 mg/dL 0.1-0.9 N code = TBIL) Alk Phos (test code 90 U/L 35-104 N = APHOS) AST (test code = 16 U/L 1-32 N AST) ALT (test code = 15 U/L 1-33 N ALT) BUN/Creatinine 20.0 Ratio (test code = BCRATIO) Anion Gap (test 12 mmol/L 7-16 N code = AGAP) Estimated GFR (test >60 eGFR (es timated code = GFR) mL/min/1.73m2 Glomerular Abilio tration Rate) is an est imated value,calculate d from the patient's s nathalie creatinine usin g the MDRD equation.I t is NOT the patient 's actual GFR. The eGFR provides a more clinicallyusefu l measure of kidn ey disease than se rum creatinine alone.This calculation eva es sex and race into account, if the informationis provided. If th e race is not provided , and the patient isAfrican-Ameri can, multiply by 1.2 12. If sex is not prov ided, and thepatient is female, multipl y by 0.742. Results for patients <18 ye ars ofage have not been validated by th e MDRD study and shoul d be interpretedwith caution.eGFR Re sult Interpretation: eGFR > or = 60 is in t he Normal RangeeGF R < 60 may mean kidney diseaseeGFR < 1 5 may mean kidney failureRange s recommended by the National Kidney Foundation,http ://nkd ep.nih.gov Lipid [id number] 00:20:00 Test Item Value Reference Range Interpretation Comments Cholesterol (test 342 mg/dL 0-200 H code = CHOL) Triglycerides (test 217 mg/dL 9-200 H Unable t o calculate, code = TRIG) Trig >400 HDL (test code = 43 mg/dL 50-60 L HDL) Chol/HDL (test code 8.0 Ratio 0.0-4.4 H = CHOLPHDL) LDL, Calculated 256 mg/dL 0-130 H (NOTE)RISK O F HEART (test code = LDLC) DISEASEPu blished by Israeli Heart AssociationAnal yte Optim al Boderline Increased RiskC HOL <200 200-239 >240TRI G <150 150-199 >200HDL Male: >60 <40HDL Female: >60 <50 LDL < 100 130-15 9 >160 LDL NEAR OPTIMAL IS 100- 129 VLDL (test code = 43 mg/dL 5-40 H VLDL) LDL/HDL (test code = 6 LDLPHDL) CBC with [id number] 23:58:00 Test Item Value Reference Range Interpretation Comments WBC (test code = WBC) 5.1 K/cumm 4.4-10.5 N RBC (test code = RBC) 4.84 M/cumm 3.75-5.20 N Hemoglobin (test code = HGB) 14.5 gm/dL 12.2-14.8 N Hematocrit (test code = HCT) 45.1 % 36.5-44.4 H MCV (test code = MCV) 93.2 fL 80-100 N MCH (test code = MCH) 30.0 pg 27.0-32.5 N MCHC (test code = MCHC) 32.2 g/dL 32.0-37.5 N RDW (test code = RDW) 14.9 % 11.5-14.5 H Platelet Count (test code = 303 K/cumm 140-440 N PLTCT) MPV (test code = MPV) 8.8 fL Diff Method (test code = DIFFM) Auto Neutrophil (test code = NEUT) 57.3 % 36-70 N Lymphocyte (test code = LYMPH) 33.4 % 12-44 N Monocyte (test code = MONO) 6.6 % 0-11 N Eosinophil (test code = EOS) 1.8 % 0-7 N Basophil (test code = BASO) 0.8 % 0-2 N Neutro Abs (test code = ANEUT) 2.9 K/cumm 1.6-7.4 N Lymph Abs (test code = ALYMPH) 1.7 K/cumm 0.5-4.6 N [place] Abs (test code = AMONO) 0.3 K/cumm 0.0-1.2 N Eos Abs (test code = AEOS) 0.09 K/cumm 0.00-0.74 N Baso Abs (test code = ABASO) 0.0 K/cumm 0.00-0.21 N Comprehensive Metabolic [id number] 00:00:00 Test Item Value Reference Range Interpretation Comments Sodium (test code = 138 mmol/L 135-145 N NA) Potassium (test 4.1 mmol/L 3.5-5.1 N code = K) Chloride (test code 103 mmol/L 98-105 N = CL) Carbon Dioxide 22 mmol/L 22-29 N (test code = CO2) Glucose (test code 105 mg/dL 70-115 N = GLU) Blood Urea Nitrogen 17 mg/dL 8-23 N (test code = BUN) Creatinine (test 0.9 mg/dL 0.5-0.9 N code = CREAT) Calcium (test code 9.3 mg/dL 8.3-10.5 N = CA) Prot Total (test 6.9 g/dL 6.4-8.3 N code = TP) Albumin (test code 4.3 g/dL 3.5-5.2 N = ALB) A/G Ratio (test 1.7 Ratio code = AGRATIO) Globulin (test code 2.6 2.9-3.1 L = GLOB) Bili Total (test 0.9 mg/dL 0.1-0.9 N code = TBIL) Alk Phos (test code 91 U/L 35-104 N = APHOS) AST (test code = 18 U/L 1-32 N AST) ALT (test code = 17 U/L 1-33 N ALT) BUN/Creatinine 18.9 Ratio (test code = BCRATIO) Anion Gap (test 13 mmol/L 7-16 N code = AGAP) Estimated GFR (test >60 eGFR (es timated code = GFR) mL/min/1.73m2 Glomerular Abilio tration Rate) is an est imated value,calculate d from the patient's s nathalie creatinine usin g the MDRD equation.I t is NOT the patient 's actual GFR. The eGFR provides a more clinicallyusefu l measure of kidn ey disease than se rum creatinine alone.This calculation eva es sex and race into account, if the informationis provided. If th e race is not provided , and the patient isAfrican-Ameri can, multiply by 1.2 12. If sex is not prov ided, and thepatient is female, multipl y by 0.742. Results for patients <18 ye ars ofage have not been validated by e MDRD study and juwanul d be interpretedwith caution.eGFR Re sult Interpretation: eGFR > or = 60 is in t he Normal RangeeGF R < 60 may mean kidney diseaseeGFR < 1 5 may mean kidney failureRange s recommended by the National Kidney Foundation,http ://nkd ep.nih.gov Lipid [id number] 00:00:00 Test Item Value Reference Range Interpretation Comments Cholesterol (test 213 mg/dL 0-200 H code = CHOL) Triglycerides (test 148 mg/dL 9-200 N code = TRIG) HDL (test code = 43 mg/dL 50-60 L HDL) Chol/HDL (test code 5.0 Ratio 0.0-4.4 H = CHOLPHDL) LDL, Calculated 140 0-130 H (NOTE)RISK O F HEART (test code = LDLC) DISEASEPu blished by [place] Heart AssociationAnal yte Optim al [place]oderline Increased RiskC HOL <200 200-239 >240TRI G <150 150-199 >200HDL Male: >60 <40HDL Female: >60 <50 LDL < 100 130-15 9 >160 LDL NEAR OPTIMAL IS 100- 129 VLDL (test code = 30 mg/dL 5-40 N VLDL) LDL/HDL (test code = 3 LDLPHDL) CBC with [id number] 23:15:00 Test Item Value Reference Range Interpretation Comments WBC (test code = WBC) 4.5 K/cumm 4.4-10.5 N RBC (test code = RBC) 4.82 M/cumm 3.75-5.20 N Hemoglobin (test code = HGB) 14.4 gm/dL 12.2-14.8 N Hematocrit (test code = HCT) 44.1 % 36.5-44.4 N MCV (test code = MCV) 91.5 fL 80-100 N MCH (test code = MCH) 29.9 pg 27.0-32.5 N MCHC (test code = MCHC) 32.7 g/dL 32.0-37.5 N RDW (test code = RDW) 13.7 % 11.5-14.5 N Platelet Count (test code = 280 K/cumm 140-440 N PLTCT) MPV (test code = MPV) 8.3 fL Diff Method (test code = DIFFM) Auto Neutrophil (test code = NEUT) 59.7 % 36-70 N Lymphocyte (test code = LYMPH) 27.2 % 12-44 N Monocyte (test code = MONO) 10.3 % 0-11 N Eosinophil (test code = EOS) 2.2 % 0-7 N Basophil (test code = BASO) 0.6 % 0-2 N Neutro Abs (test code = ANEUT) 2.7 K/cumm 1.6-7.4 N Lymph Abs (test code = ALYMPH) 1.2 K/cumm 0.5-4.6 N [place] Abs (test code = AMONO) 0.5 K/cumm 0.0-1.2 N Eos Abs (test code = AEOS) 0.10 K/cumm 0.00-0.74 N Baso Abs (test code = ABASO) 0.0 K/cumm 0.00-0.21 N
[2020-11-24 10:03] LABS: Basophils % 0.2 % (0-1.3); Hematocrit 44.8 % (36.0-45.0); Lymphocytes % 11.8 % (15.3-44.8); MPV 7.1 fL (7.6-11.3); RBC Red Blood Cell Count 4.89 M/uL (3.86-4.86)
[2020-11-24 10:30] LABS: ALT/SGPT 39 U/L (12-78); AST/SGOT 30 U/L (15-37); Albumin 3.7 g/dL (3.4-5.0); Alkaline Phosphatase 92 U/L (45-117); BUN Blood Urea Nitrogen 29 mg/dL (7-18); Bicarbonate 25 mmol/L (21-32); Bilirubin Direct 0.3 mg/dL (0-0.2); Bilirubin Total 1.3 mg/dL (0.2-1.0); Glucose Level 90 mg/dL (74-106); Lipase 98 U/L (73-393); NT PRO-BNP 75 pg/mL (<450); Potassium 3.2 mmol/L (3.5-5.1); Protein, Total 7.7 g/dL (6.4-8.2); Sodium Level 141 mmol/L (136-145); Troponin (Emerg Dept Use Only) < 0.02 ng/mL (0.0-0.045)
[2020-11-24 10:32] LABS: Magnesium 1.3 mg/dL (1.8-2.4)
--- NOTE | 2020-11-24 11:19 | RAD REPORT ---
EXAM DESCRIPTION: [facility] Single View11/24/2020 10:42 am CLINICAL HISTORY: Shortness of breath COMPARISON: April 2020 FINDINGS: The lungs appear clear of acute infiltrate. The heart is normal size IMPRESSION: No acute abnormalities displayed
[2020-11-24] MEDS ORDERED: PROMETHAZINE INJ 25 MG/ML AMP ONE (12:06)
[2020-11-24] MEDS ORDERED: NA CHLORIDE 0.9% 1,000 ML ONE (12:06)
[2020-11-24] MEDS ORDERED: POTASSIUM CL SA 10 MEQ TAB PO ONE (12:06)
[2020-11-24] MEDS ORDERED: Magnesium Sulfate 2gm IVPB 2 G/50 ML BAG IV ONE (12:07)
--- NOTE | 2020-11-24 12:19 | RAD REPORT ---
EXAM DESCRIPTION: CT - Head Brain Wo Cont - 11/24/2020 12:07 pm CLINICAL HISTORY: Headache COMPARISON: None. TECHNIQUE: Computed axial tomography of the head was obtained. IV contrast was not requested. All CT scans are performed using dose optimization technique as appropriate and may include automated exposure control or mA/KV adjustment according to patient size. FINDINGS: An intracranial bleed is not seen . The ventricles are normal in caliber. No extra-axial fluid collection is noted. Fluid within the sinuses/ mastoids is not seen. IMPRESSION: No acute intracranial abnormality is seen. If patient's symptoms persist MRI of the bra in would be recommended.
[2020-11-24 12:57] LABS: Blood Morphology Comment NOT SEEN (NOT SEEN); Platelet Estimate ADEQ; White Blood Cell Scan OK (OK)
--- NOTE | 2020-11-24 13:55 | EDPHYS ---
Physician Documentation [facility] Name: Yodit Alarcon Age: 75 yrs Sex: Female : 1945 Arrival Date: 11/24/2020 Time: 09:27 Bed 25 Private MD: ED Physician Javier Malin HPI: 11/24 11:39 This 75 yrs old Female presents to ER via EMS with complaints of Vomiting . jr8 11:39 This is a 75-year-old female that had a sudden onset of nausea vomiting. Stated that jr8 she had felt fine earlier this morning. Now complaining of mild headache. Denies any other signs or symptoms at this time.. Severity of symptoms: At their worst the symptoms were moderate in the emergency department the symptoms are unchanged. The patient has not experienced similar symptoms in the past. The patient has not recently seen a physician. Historical: - Allergies: 09:32 Codeine; kh1 - Immunization history:: Adult Immunizations up to date, Client reports receiving the 2nd dose of the Covid vaccine, Date received: May 25, 2020. - Social history:: Patient/guardian denies using alcohol, street drugs, Patient/guardian denies using Patient/guardian denies using Smoking status: Patient/guardian denies using. ROS: 11:39 Eyes: Negative for injury, pain, redness, and discharge, ENT: Negative for injury, jr8 pain, and discharge, Neck: Negative for injury, pain, and swelling, Cardiovascular: Negative for chest pain, palpitations, and edema, Respiratory: Negative for shortness of breath, cough, wheezing, and pleuritic chest pain, Back: Negative for injury and pain, MS/Extremity: Negative for injury and deformity, Skin: Negative for injury, rash, and discoloration. 11:39 Abdomen/GI: Positive for nausea and vomiting, Negative for abdominal pain, diarrhea, hematemesis, black/tarry stool, rectal bleeding. 11:39 Neuro: Positive for headache. Exam: 11:39 Eyes: Pupils equal round and reactive to light, extra-ocular motions intact. Lids and jr8 lashes normal. Conjunctiva and sclera are non-icteric and not injected. Cornea within normal limits. Periorbital areas with no swelling, redness, or edema. ENT: Nares patent. No nasal discharge, no septal abnormalities noted. Tympanic membranes are normal and external auditory canals are clear. Oropharynx with no redness, swelling, or masses, exudates, or evidence of obstruction, uvula midline. Mucous membranes moist. Neck: Trachea midline, no thyromegaly or masses palpated, and no cervical lymphadenopathy. Supple, full range of motion without nuchal rigidity, or vertebral point tenderness. No Meningismus. Respiratory: Lungs have equal breath sounds bilaterally, clear to auscultation and percussion. No rales, rhonchi or wheezes noted. No increased work of breathing, no retractions or nasal flaring. Abdomen/GI: Soft, non-tender, with normal bowel sounds. No distension or tympany. No guarding or rebound. No evidence of tenderness throughout. Back: No spinal tenderness. No costovertebral tenderness. Full range of motion. Skin: Warm, dry with normal turgor. Normal color with no rashes, no lesions, and no evidence of cellulitis. MS/ Extremity: Pulses equal, no cyanosis. Neurovascular intact. Full, normal range of motion. Neuro: Awake and alert, GCS 15, oriented to person, place, time, and situation. Cranial nerves II-XII grossly intact. Motor strength 5/5 in all extremities. Sensory grossly intact. Cerebellar exam normal. Normal gait. 11:39 Cardiovascular: Rate: tachycardic, Rhythm: regular, Pulses: Pulses are 2+ in right radial artery and left radial artery. Heart sounds: normal, normal S1and S2, no S3 or S4, no murmur, no rub, no gallop, Edema: is not appreciated, JVD: is not appreciated. Vital Signs: 09:27 BP 114 / 64; Pulse 144; Resp 24; Temp 98.3(TE); Pulse Ox 99% on R/A; kh1 09:33 BP 114 / 64; Pulse 142; Resp 24; Temp 98.3; Pulse Ox 99% on R/A; kh1 13:10 BP 119 / 66; Pulse 96; Resp 18; Pulse Ox 100% on R/A; kh1 14:40 BP 122 / 64; Pulse 72; Resp 16; Pulse Ox 95% on R/A; kh1 MDM: 09:38 Patient medically screened. [facility] 13:53 Data reviewed: vital signs, nurses notes, lab test result(s), EKG, radiologic studies, jr8 CT scan, plain films. Data interpreted: Pulse oximetry: on room air is 100 %. Interpretation: normal. Counseling: I had a detailed discussion with the patient and/or guardian regarding: the historical points, exam findings, and any diagnostic results supporting the discharge/admit diagnosis, lab results, radiology results, the need for outpatient follow up, a family practitioner, to return to the emergency department if symptoms worsen or persist or if there are any questions or concerns that arise at home. Response to treatment: the patient's symptoms have markedly improved after treatment, patient is well hydrated. ED course: Vital signs markedly improved. Patient feeling much better. Only with mild headache at this time. We will send patient home on antiemetics and told to rest and continue to hydrate. If she were to feel worse or to run fever to come back for further evaluation otherwise needs to follow-up with her PCP in the next 24-48 hrs.. 11/24 09:43 Order name: Basic Metabolic Panel; Complete Time: 10:32 11/24 09:43 Order name: CBC with Diff; Complete Time: 12:57 11/24 09:43 Order name: LFT's; Complete Time: 10:32 11/24 09:43 Order name: Magnesium; Complete Time: 10:32 11/24 09:43 Order name: NT PRO-BNP; Complete Time: 10:32 11/24 09:43 Order name: PT-INR; Complete Time: 10:20 11/24 09:43 Order name: Troponin (emerg Dept Use Only); Complete Time: 10:32 11/24 09:43 Order name: XRAY Chest (1 view); Complete Time: 11:24 11/24 09:43 Order name: Lipase; Complete Time: 10:32 11/24 11:55 Order name: CT Head Brain wo Cont; Complete Time: 12:21 11/24 12:02 Order name: SARS-COV-2 RT PCR; Complete Time: 12:11 EDMO 11/24 12:57 Order name: CBC Smear Scan; Complete Time: 12:57 EDMO 11/24 09:43 Order name: EKG; Complete Time: 09:44 11/24 09:43 Order name: Cardiac monitoring; Complete Time: 11:38 11/24 09:43 Order name: EKG - Nurse/Tech; Complete Time: 11:39 11/24 09:43 Order name: IV Saline Lock; Complete Time: 11:39 11/24 09:43 Order name: Labs collected and sent; Complete Time: 11:39 11/24 09:43 Order name: O2 Per Protocol; Complete Time: 11:39 11/24 09:43 Order name: O2 Sat Monitoring; Complete Time: 11:39 Administered Medications: 11:50 Drug: NS 0.9% 1000 ml Route: IV; Rate: 1000 ml; Site: left antecubital; [facility] 14:50 Follow up: IV Status: Completed infusion iw 11:50 Drug: Phenergan (promethazine) 12.5 mg Route: IVP; Site: left antecubital; [facility] 11:50 Drug: Potassium Chloride 40 mEq Route: PO; [facility] 13:00 Drug: Magnesium Sulfate 2 grams Route: IVPB; Infused Over: 2 hrs; Site: right [facility] antecubital; 14:50 Follow up: IV Status: Completed infusion iw Disposition: 11/25 09:20 Co-signature as Attending Physician, Javier Malin MD I agree with the assessment and delvis plan of care. Disposition Summary: 11/24/20 13:54 Discharge Ordered Location: Home [facility] Problem: new jr8 Symptoms: have improved jr8 Condition: Stable jr8 Diagnosis - Vomiting jr8 - Hypomagnesemia jr8 - Dehydration jr8 Followup: jr8 - With: Private Physician - When: 2 - 3 days - Reason: Recheck today's complaints, Continuance of care, Re-evaluation by your physician Discharge Instructions: - Discharge Summary Sheet jr8 - Dehydration, Adult jr8 - Hypomagnesemia jr8 Forms: - Medication Reconciliation Form jr8 - Thank You Letter jr8 - Antibiotic Education jr8 - Prescription Opioid Use jr8 Prescriptions: - promethazine 25 mg Oral Tablet - take 1 tablet by ORAL route every 6 hours As needed; 20 tablet; Refills: 0, jr8 Product Selection Permitted Signatures: Dispatcher [employer] Javier Olivares MD MD cha Roszak, Josh, PA PA jr8 Julieta Matt [facility] Darlin Gonzalez RN iw Corrections: (The following items were deleted from the chart) 11/24 11:04 09:43 CORONAVIRUS+MR.LAB.BRZ ordered. EDMS EDMS
--- NOTE | 2020-11-24 13:55 | ER ---
Nurse's Notes [facility] Name: Yodit Alarcon Age: 75 yrs Sex: Female : 1945 Arrival Date: 11/24/2020 Time: 09:27 Bed 25 Private MD: Diagnosis: Vomiting;Hypomagnesemia;Dehydration Presentation: 11/24 09:27 Chief complaint: Patient states: brought by EMS c/o nausea and vomiting chills times kh1 this am. states symptoms started suddenly this am. Coronavirus screen: Client denies travel out of the [place] in the last 14 days. Ebola Screen: No symptoms or risks identified at this time. Initial Sepsis Screen: Does the patient meet any 2 criteria? RR > 20 per min. HR > 90 bpm. Yes. Risk Assessment: Do you want to hurt yourself or someone else? Patient reports no desire to harm self or others. Onset of symptoms was November 24, 2020. 09:27 Method Of Arrival: EMS: [facility] 09:27 Acuity: EDVIN 2 [facility] 09:36 Initial Sepsis Screen: Does the patient have a suspected source of infection? Yes:. [facility] Triage Assessment: 09:33 General: Appears uncomfortable. Pain: Denies pain. [facility] 09:37 General: Behavior is calm, cooperative. [facility] Historical: - Allergies: 09:32 Codeine; [facility] - Immunization history:: Adult Immunizations up to date, Client reports receiving the 2nd dose of the Covid vaccine, Date received: May 25, 2020. - Social history:: Patient/guardian denies using alcohol, street drugs, Patient/guardian denies using Patient/guardian denies using Smoking status: Patient/guardian denies using. Screenin:35 Abuse screen: Denies threats or abuse. Nutritional screening: No deficits noted. [facility] Tuberculosis screening: No symptoms or risk factors identified. Fall Risk Assessment: 09:34 General: Appears in no apparent distress. Pain: Denies pain. Neuro: No deficits noted. [facility] 11:00 Reassessment: Patient appears in no apparent distress at this time. No changes from [facility] previously documented assessment. Patient and/or family updated on plan of care and expected duration. Pain level reassessed. 13:09 Reassessment: Patient appears in no apparent distress at this time. No changes from kh1 previously documented assessment. Patient and/or family updated on plan of care and expected duration. Pain level reassessed. Patient is alert, oriented x 3, equal unlabored respirations, skin warm/dry/pink. 14:39 Reassessment: No changes from previously documented assessment. Patient and/or family kh1 updated on plan of care and expected duration. Pain level reassessed. Vital Signs: 09:27 BP 114 / 64; Pulse 144; Resp 24; Temp 98.3(TE); Pulse Ox 99% on R/A; kh1 09:33 BP 114 / 64; Pulse 142; Resp 24; Temp 98.3; Pulse Ox 99% on R/A; kh1 13:10 BP 119 / 66; Pulse 96; Resp 18; Pulse Ox 100% on R/A; kh1 14:40 BP 122 / 64; Pulse 72; Resp 16; Pulse Ox 95% on R/A; kh1 ED Course: 09:27 Patient arrived in ED. aa5 09:27 Julieta Matt is Primary Nurse. kh1 09:32 Triage completed. kh1 09:33 Arm band placed on right wrist. kh1 09:36 Qasim Rivera PA is PHCP. jr8 09:36 Javier Malin MD is Attending Physician. jr8 09:36 Patient has correct armband on for positive identification. Bed in low position. Call [facility] light in reach. Side rails up X 1. special service representative on. Pulse ox on. NIBP on. 10:32 Notified Nurse Practitioner and/or Physician Geriatric Nurse Practitioner of a critical lab result(s), aa5 magnesium 1.3. 10:42 XRAY Chest (1 view) In Process Unspecified. EDMS 12:07 CT Head Brain wo Cont In Process Unspecified. EDMS 13:08 No provider procedures requiring assistance completed. kh1 14:49 IV discontinued, intact, bleeding controlled, No redness/swelling at site. Pressure iw dressing applied. Administered Medications: 11:50 Drug: NS 0.9% 1000 ml Route: IV; Rate: 1000 ml; Site: left antecubital; kh1 14:50 Follow up: IV Status: Completed infusion iw 11:50 Drug: Phenergan (promethazine) 12.5 mg Route: IVP; Site: left antecubital; kh1 11:50 Drug: Potassium Chloride 40 mEq Route: PO; 1 13:00 Drug: Magnesium Sulfate 2 grams Route: IVPB; Infused Over: 2 hrs; Site: right [facility] antecubital; 14:50 Follow up: IV Status: Completed infusion iw Outcome: 13:54 Discharge ordered by MD. woodward 14:38 Discharged to home [facility] 14:38 Condition: good 14:38 Discharge instructions given to patient. 14:50 Patient left the ED. iw Signatures: Dispatcher [employer] Darlin Syed RN RN iw Calderon, Audri, RN RN aa5 Qasim Rivera PA PA jr8 Julieta Matt [facility]
[2020-11-24] MEDS ORDERED: ACETAMINOPHEN 500 MG TAB ONE (14:31)
[2020-11-24 14:55] VITALS: TEMP 98.3
[2020-11-24 14:59] VITALS: BP 122/64; O2SAT 95
== END 2020-11-24 14:50 | disposition home or self-care (01) ==
LOC: ER 08:50
DX: E83.42 Hypomagnesemia (principal); E86.0 Dehydration; Z88.5 Allergy status to narcotic agent
CPT/HCPCS: 36415; 70450; 71045; 80048; 80076; 83690; 83735; 83880; 84484; 85025; 85610; 96361; 96365; 96366; 96375; 99284; J2550; J3475; J7030; U0003

== ENCOUNTER 2020-11-26 18:49 | Inpatient (IN) | payer OTHER ==
--- NOTE | 2020-11-26 20:28 | RAD REPORT ---
EXAM DESCRIPTION: CT - Head Brain Wo Cont - 11/26/2020 8:16 pm CLINICAL HISTORY: HEADACHE Headache, hypertension, drowsiness COMPARISON: Head Brain Wo Cont dated 11/24/2020 TECHNIQUE: All CT scans are performed using dose optimization technique as appropriate and may inclu de automated exposure control or mA/KV adjustment according to patient size. FINDINGS: No intracranial hemorrhage, hydrocephalus or extra-axial fluid collection.No areas of brai n edema or evidence of midline shift. The paranasal sinuses and mastoids are clear. The calvarium is intact. IMPRESSION: No acute intracranial abnormality.
--- NOTE | 2020-11-26 20:29 | RAD REPORT ---
EXAM DESCRIPTION: RAD - Chest Single View - 11/26/2020 8:13 pm CLINICAL HISTORY: CHEST PAIN Chest pain. COMPARISON: Chest Single View dated 11/24/2020; Chest Pa And Lat (2 Views) dated 05/07/2020 FINDINGS: Portable technique limits examination quality. The lungs are grossly clear. The heart is mildly prominent in size. No displaced fractures. IMPRESSION: No acute intrathoracic process suspected.
[2020-11-26 20:34] LABS: Absolute Lymphocytes (CBC) 0.4 K/uL (0.7-4.9); Basophils % 0.3 % (0-1.3); Hematocrit 38.4 % (36.0-45.0); Lymphocytes % 5.8 % (15.3-44.8); MPV 6.9 fL (7.6-11.3); RBC Red Blood Cell Count 4.24 M/uL (3.86-4.86)
[2020-11-26 20:37] LABS: Protime INR 1.15
[2020-11-26 20:47] LABS: Urine Specific Gravity >=1.030 (1.005-1.030)
[2020-11-26] MEDS ORDERED: NA CHLORIDE 0.9% 1,000 ML ONE (20:47)
[2020-11-26 20:48] LABS: Urine Blood 1+ (Negative); Urine Glucose Negative (Negative); Urine Protein 3+ (Negative); Urine pH 5.5 (5.0-7.0)
[2020-11-26 20:57] LABS: Albumin 3.1 g/dL (3.4-5.0); Bilirubin Direct 0.4 mg/dL (0-0.2); Bilirubin Total 1.6 mg/dL (0.2-1.0); C-Reactive Protein 73.5 mg/L (<3.00); Magnesium 1.7 mg/dL (1.8-2.4); Potassium 3.4 mmol/L (3.5-5.1); Protein, Total 6.9 g/dL (6.4-8.2); Thyroid Stimulating Hormone 0.892 uIU/mL (0.360-3.740); Troponin (Emerg Dept Use Only) 0.31 ng/mL (0.0-0.045)
[2020-11-26 21:18] LABS: Urine Appearance CLOUDY (Clear); Urine Bilirubin NEGATIVE (Negative); Urine Blood 1+ (Negative); Urine Color YELLOW (Yellow); Urine Glucose NEGATIVE (Negative); Urine Protein 3+ (Negative); Urine Specific Gravity 1.015 (1.005-1.030)
--- NOTE | 2020-11-26 21:38 | RAD REPORT ---
EXAM DESCRIPTION: CT - Chest For Pe Angio - 11/26/2020 9:24 pm CLINICAL HISTORY: Chest pain. CHEST PAIN COMPARISON: <Comparisons> TECHNIQUE: CT angiogram of the pulmonary arteries was performed with MIP. All CT scans are performed using dose optimization technique as appropriate and may include automated exposure control or mA/KV adjustment according to patient size. FINDINGS: No evidence of pulmonary thromboembolism. No acute aortic finding demonstrated. Prominent soft atherosclerotic plaque is seen along the aortic arch. Mild interstitial pulmonary edema is noted. No significant pericardial or pleural fluid. No concerning bony finding. Small hiatal hernia. IMPRESSION: No evidence of pulmonary thromboembolism. Mild interstitial pulmonary edema.
[2020-11-26] MEDS ORDERED: VITAMIN D 1000 UNIT TAB ONE (21:39)
[2020-11-26] MEDS ORDERED: POTASSIUM CL SA 10 MEQ TAB PO ONE (21:39)
[2020-11-26 22:11] LABS: Urine Bacteria LOADED /HPF (<20); Urine Microscopic Reflex ORDER UMIC; Urine Mucus 2+ /HPF (NONE SEEN)
--- NOTE | 2020-11-26 22:44 | EDPHYS ---
Physician Documentation [facility] Name: Yodit Alarcon Age: 75 yrs Sex: Female : 1945 Arrival Date: 11/26/2020 Time: 19:04 Bed 15 Private MD: ED Physician Paulo Reece HPI: 11/26 19:40 This 75 yrs old Female presents to ER via EMS with complaints of Headache. pkl 19:40 The patient describes the headache as constant. Onset: The symptoms/episode pkl began/occurred just prior to arrival. Associated signs and symptoms: Pertinent positives: chest pain and uncontrolled shaking. The patient has been recently seen at the [facility] Emergency Department, this week, for similar complaints labs were performed, X-rays were performed, CT scan was performed. 19:48 The patient complains of pain to the occipital region. pkl Historical: - Immunization history:: Adult Immunizations Client reports receiving the 2nd dose of the Covid vaccine. - Social history:: Smoking status: Patient denies any tobacco usage or history of. ROS: 19:40 Eyes: Negative for injury, pain, redness, and discharge, ENT: Negative for injury, pkl pain, and discharge, Neck: Negative for injury, pain, and swelling. 19:40 Cardiovascular: Positive for chest pain, of the substernal. 19:40 Respiratory: Negative for cough, shortness of breath. 19:40 Abdomen/GI: Negative for abdominal pain, nausea, vomiting, and diarrhea. 19:40 Back: Negative for acute changes. 19:40 : Negative for urinary symptoms. 19:40 MS/extremity: Negative for acute changes. 19:40 Skin: Negative for rash. 19:40 Neuro: Positive for headache, Negative for altered mental status. Exam: 19:40 Head/Face: Normocephalic, atraumatic. Eyes: Pupils equal round and reactive to light, pkl extra-ocular motions intact. Lids and lashes normal. Conjunctiva and sclera are non-icteric and not injected. Cornea within normal limits. Periorbital areas with no swelling, redness, or edema. ENT: Nares patent. No nasal discharge, no septal abnormalities noted. Tympanic membranes are normal and external auditory canals are clear. Oropharynx with no redness, swelling, or masses, exudates, or evidence of obstruction, uvula midline. Mucous membranes moist. Neck: Trachea midline, no thyromegaly or masses palpated, and no cervical lymphadenopathy. Supple, full range of motion without nuchal rigidity, or vertebral point tenderness. No Meningismus. Chest/axilla: Normal chest wall appearance and motion. Nontender with no deformity. No lesions are appreciated. 19:40 Cardiovascular: Rate: tachycardic, actual rate is 111 bpm, Rhythm: regular. 19:40 Respiratory: the patient does not display signs of respiratory distress, Respirations: normal, Breath sounds: are clear throughout. 19:40 Abdomen/GI: Bowel sounds: normal, Palpation: abdomen is soft and non-tender, in all quadrants. 19:40 Back: Exam negative for acute changes. 19:40 : Exam negative for acute changes. 19:40 Musculoskeletal/extremity: Exam is negative for acute changes. 19:40 Skin: Exam negative for rash. 19:40 Neuro: Orientation: is normal, Mentation: is normal, Cranial nerves: grossly normal, Motor: is normal, Sensation: is normal. Vital Signs: 19:17 BP 115 / 65; Pulse 112; Resp 25; Pulse Ox 96% on R/A; Pain 8/10; ch5 19:19 BP 116 / 63; Pulse 111; Resp 20; Pulse Ox 97% on R/A; Weight 72.57 kg; Height 5 ft. 2 ch5 in. (157.48 cm); Pain 8/10; 19:19 Body Mass Index 29.26 (72.57 kg, 157.48 cm) ch5 MDM: 19:11 Patient medically screened. pkl 22:40 Data reviewed: vital signs, nurses notes, lab test result(s), EKG, radiologic studies, pkl CT scan, plain films. ED course: Talked to Walter Brice ( PROJECT CONSULTANT ) Admit to Dr. Pina. 11/26 19:37 Order name: Basic Metabolic Panel; Complete Time: 21:00 pkl 11/26 19:37 Order name: CBC with Diff; Complete Time: 20:42 pkl 11/26 19:37 Order name: LFT's; Complete Time: 21:00 pkl 11/26 19:37 Order name: Magnesium; Complete Time: 21:00 pkl 11/26 19:37 Order name: NT PRO-BNP; Complete Time: 21:00 pkl 11/26 19:37 Order name: PT-INR; Complete Time: 20:42 [facility] 11/26 19:37 Order name: Troponin (emerg Dept Use Only); Complete Time: 21:00 [facility] 11/26 19:37 Order name: D-Dimer; Complete Time: 20:42 [facility] 11/26 19:39 Order name: Blood Culture Adult (2) [facility] 11/26 19:39 Order name: Lactate; Complete Time: 22:09 [facility] 11/26 20:22 Order name: C-Reactive Protein; Complete Time: 21:00 [facility] 11/26 20:24 Order name: Lipase; Complete Time: 21:00 [facility] 11/26 20:25 Order name: TSH [facility] 11/26 20:29 Order name: Thyroid Stimulating Hormone; Complete Time: 21:00 [facility] 11/26 20:45 Order name: Urine Culture 11/26 20:45 Order name: Urinalysis 11/26 20:46 Order name: Urine Culture [facility] 11/26 20:46 Order name: Urinalysis; Complete Time: 22:15 [facility] 11/26 20:47 Order name: COVID-19 : Document "Date of Symptom Onset" if Symptomatic. bs2 11/26 20:48 Order name: Urine Dipstick-Ancillary; Complete Time: 20:50 [facility] 11/26 22:12 Order name: Urine Microscopic Only; Complete Time: 22:15 [facility] 11/26 22:44 Order name: SARS-COV-2 RT PCR; Complete Time: 22:44 [facility] 11/27 04:05 Order name: CBC with Automated Diff [facility] 11/27 04:24 Order name: Comprehensive Metabolic Panel [facility] 11/27 04:24 Order name: Troponin I [facility] 11/27 04:24 Order name: Lipid Profile [facility] 11/26 19:37 Order name: XRAY Chest (1 view); Complete Time: 20:32 [facility] 11/26 19:37 Order name: EKG; Complete Time: 19:38 [facility] 11/26 19:37 Order name: Cardiac monitoring; Complete Time: 20:21 [facility] 11/26 19:37 Order name: EKG - Nurse/Tech; Complete Time: 20:21 [facility] 11/26 19:37 Order name: IV Saline Lock; Complete Time: 20:21 [facility] 11/26 19:37 Order name: Labs collected and sent; Complete Time: 20:21 pkl 11/26 19:37 Order name: O2 Per Protocol; Complete Time: 20:21 pkl 11/26 19:37 Order name: O2 Sat Monitoring; Complete Time: 20:21 pkl 11/26 19:39 Order name: Urine Dipstick-Ancillary (obtain specimen); Complete Time: 21:04 pkl 11/26 19:39 Order name: CT Head Brain wo Cont; Complete Time: 20:32 pkl 11/26 21:02 Order name: CT Chest For PE Angio; Complete Time: 22:09 pkl 11/27 04:24 Order name: T4 Free EDMS 11/27 04:24 Order name: Thyroid Stimulating Hormone EDMS 11/27 05:55 Order name: Lactate EDMS 11/27 05:56 Order name: Procalcitonin EDMS 11/27 11:51 Order name: Troponin I EDMS 11/27 12:00 Order name: Glucose, Ancillary Testing EDMS Administered Medications: 21:04 Drug: NS 0.9% 1000 ml Route: IV; Rate: 125 ml/hr; Site: right forearm; bs2 11/27 18:22 Follow up: Response: No adverse reaction; IV Status: Completed infusion; IV Intake: ll1 1000ml 11/26 22:03 Drug: K-Dur (potassium chloride) 20 mEq Route: PO; bs2 11/27 06:33 Follow up: Response: No adverse reaction bs2 11/26 23:58 Drug: Lovenox (enoxaparin) 1 mg/kg Route: Sub-Q; Site: abdomen; 4 11/27 06:33 Follow up: Response: No adverse reaction bs2 11/26 23:58 Drug: Aspirin Chewable Tablet 324 mg Route: PO; kc4 11/27 06:32 Follow up: Response: No adverse reaction bs2 11/26 23:59 Drug: Rocephin (cefTRIAXone) 1 grams Route: IV; Rate: calculated rate; Site: right kc4 forearm; 11/27 06:33 Follow up: IV Status: Completed infusion bs2 Disposition Summary: 11/26/20 22:43 Hospitalization Ordered Hospitalization Status: Inpatient Admission pkl Provider: Tripp Pina pkl Condition: Stable pkl Problem: new pkl Symptoms: are unchanged pkl Bed/Room Type: Standard pkl Location: Telemetry/MedSurg (Inpatient)(11/27/20 16:00) hi Room Assignment: [facility](11/27/20 16:00) hi Diagnosis - Chest pain. Elevated Troponin. Urinary tract infection. Severe headache pkl Forms: - Medication Reconciliation Form pkl - SBAR form pkl Signatures: Dispatcher [employer] EDMS Paulo Reece MD MD pkl Walter Brice FNP-C HOME DEMONSTRATOR-Cla1 Marbella Hart, RN RN Fab Bakerah Kelsey Marshall RN RN bs2 Scott Summers RN RN ch5 Jacque Bryan [facility] Jarrett Mederos RN ll1 Corrections: (The following items were deleted from the chart) 11/26 19:50 19:40 The patient complains of pain to the top of head and forehead, pkl pkl 20:22 19:40 C-REACTIVE PROTEIN+C.LAB.BRZ ordered. EDMS EDMS 20:23 19:47 LIPASE+C.LAB.BRZ ordered. EDMS EDMS 20:29 20:25 Thyroid Stimulating Hormone ordered. EDMS EDMS 21:45 20:48 CORONAVIRUS ordered. EDMS EDMS 11/27 01:08 11/26 22:43 Telemetry/MedSurg (Inpatient) pkl cg 11/27 01:08 11/26 22:43 pkl cg 11/27 16:00 01:08 [facility] ER HOLD cg hi 16:00 01:08 ERHOLD- cg hi
--- NOTE | 2020-11-26 22:44 | ER ---
Nurse's Notes [facility] Name: Yodit Alarcon Age: 75 yrs Sex: Female : 1945 Arrival Date: 11/26/2020 Time: 19:04 Bed 15 Private MD: Diagnosis: Chest pain. Elevated Troponin. Urinary tract infection. Severe headache Presentation: 11/26 19:06 Chief complaint: Patient states: Called EMS for sudden onset of headache and shaking. ch5 Seen here Monday. Coronavirus screen: Vaccine status: Patient reports receiving the 2nd dose of the covid vaccine. Client denies travel out of the [place] in the last 14 days. Client indicates they have traveled out of the [place] in the last 14 days. At this time, unable to obtain information related to travel outside the [place] Ebola Screen: Patient negative for fever greater than or equal to 101.5 degrees Fahrenheit, and additional compatible Ebola Virus Disease symptoms Patient denies exposure to infectious person. Patient denies travel to an Ebola-affected area in the 21 days before illness onset. 19:06 Method Of Arrival: EMS: [place] [id number] 19:17 Initial Sepsis Screen: Does the patient meet any 2 criteria? RR > 20 per min. HR > 90 ch5 bpm. Does the patient have a suspected source of infection? No. Patient's initial sepsis screen is negative. Risk Assessment: Do you want to hurt yourself or someone else?. Onset of symptoms was November 26, 2020. 19:17 Acuity: EDVIN 2 ch5 Triage Assessment: 19:18 Headache History: Denies prior headaches. General: Appears Behavior is agitated. Pain: 5 Pain currently is 8 out of 10 on a pain scale. Quality of pain is described as Pain began suddenly, Also complains of nausea. Neuro: No deficits noted. Historical: - Immunization history:: Adult Immunizations Client reports receiving the 2nd dose of the Covid vaccine. - Social history:: Smoking status: Patient denies any tobacco usage or history of. Screenin:30 Abuse screen: Denies threats or abuse. Denies injuries from another. Nutritional bs2 screening: No deficits noted. Tuberculosis screening: No symptoms or risk factors identified. Fall Risk None identified. Assessment: 19:30 General: Appears in no apparent distress. uncomfortable, obese, well groomed, well bs2 developed, well nourished, Behavior is calm, cooperative, appropriate for age. Pain: Complains of pain in chest and forehead and top of head Pain currently is 3 out of 10 on a pain scale. Pain began gradually. Neuro: Reports dizziness, headache. Cardiovascular: No deficits noted. Reports chest pain, lightheadedness. Respiratory: No deficits noted. GI: No signs and/or symptoms were reported involving the gastrointestinal system. : No signs and/or symptoms were reported regarding the genitourinary system. EENT: No signs and/or symptoms were reported regarding the EENT system. Derm: No signs and/or symptoms reported regarding the dermatologic system. Vital Signs: 19:17 BP 115 / 65; Pulse 112; Resp 25; Pulse Ox 96% on R/A; Pain 8/10; ch5 19:19 BP 116 / 63; Pulse 111; Resp 20; Pulse Ox 97% on R/A; Weight 72.57 kg; Height 5 ft. 2 ch5 in. (157.48 cm); Pain 8/10; 19:19 Body Mass Index 29.26 (72.57 kg, 157.48 cm) ch5 ED Course: 19:04 Patient arrived in ED. ds4 19:06 Scott Summers, HENRY is Primary Nurse. ch5 19:11 Paulo Reece MD is Attending Physician. pkl 19:18 Triage completed. ch5 19:18 Arm band placed on right wrist. ch5 19:30 Patient has correct armband on for positive identification. Placed in gown. Bed in low bs2 position. Call light in reach. Side rails up X 1. personnel monitor on. Pulse ox on. NIBP on. Door closed. Noise minimized. Lights dimmed. Warm blanket given. Pillow given. 19:30 Inserted saline lock: 18 gauge in right forearm, using aseptic technique. bs2 20:13 XRAY Chest (1 view) In Process Unspecified. EDMS 20:16 CT Head Brain wo Cont In Process Unspecified. EDMS 20:21 Lactate Sent. bs2 20:21 Blood Culture Adult (2) Sent. bs2 20:21 D-Dimer Sent. bs2 20:22 Basic Metabolic Panel Sent. bs2 20:22 CBC with Diff Sent. bs2 20:22 LFT's Sent. bs2 20:22 Magnesium Sent. bs2 20:22 NT PRO-BNP Sent. bs2 20:22 PT-INR Sent. bs2 20:22 Troponin (emerg Dept Use Only) Sent. bs2 20:46 Thyroid Stimulating Hormone Sent. bs2 20:46 Basic Metabolic Panel Sent. bs2 20:46 LFT's Sent. bs2 20:46 Magnesium Sent. bs2 20:46 NT PRO-BNP Sent. bs2 20:46 Troponin (emerg Dept Use Only) Sent. bs2 20:46 Blood Culture Adult (2) Sent. bs2 20:46 Lactate Sent. bs2 20:46 TSH Sent. bs2 20:46 Lipase Sent. bs2 20:46 C-Reactive Protein Sent. bs2 21:03 COVID-19 : Document "Date of Symptom Onset" if Symptomatic. Sent. bs2 21:03 Urinalysis Sent. bs2 21:03 Urine Culture Sent. bs2 21:24 CT Chest For PE Angio In Process Unspecified. EDMS 22:41 Tripp Pina DO is Hospitalizing Provider. pkl 11/27 06:28 No provider procedures requiring assistance completed. Patient admitted, IV remains in bs2 place. 06:33 Urine Culture Sent. bs2 06:33 Blood Culture Adult (2) Sent. bs2 Administered Medications: 11/26 21:04 Drug: NS 0.9% 1000 ml Route: IV; Rate: 125 ml/hr; Site: right forearm; bs2 11/27 18:22 Follow up: Response: No adverse reaction; IV Status: Completed infusion; IV Intake: ll1 1000ml 11/26 22:03 Drug: K-Dur (potassium chloride) 20 mEq Route: PO; bs2 11/27 06:33 Follow up: Response: No adverse reaction bs2 11/26 23:58 Drug: Lovenox (enoxaparin) 1 mg/kg Route: Sub-Q; Site: abdomen; 4 11/27 06:33 Follow up: Response: No adverse reaction bs2 11/26 23:58 Drug: Aspirin Chewable Tablet 324 mg Route: PO; kc4 11/27 06:32 Follow up: Response: No adverse reaction bs2 11/26 23:59 Drug: Rocephin (cefTRIAXone) 1 grams Route: IV; Rate: calculated rate; Site: right kc4 forearm; 11/27 06:33 Follow up: IV Status: Completed infusion bs2 Intake: 18:22 IV: 1000ml; Total: 1000ml. ll1 Outcome: 11/26 22:43 Decision to Hospitalize by Provider. pkmarysol 11/27 06:28 Admitted to ER Hold. Please see [facility] for further documentation. bs2 Condition: stable Instructed on the need for admit. 18:22 Patient left the ED. ll1 Signatures: Dispatcher [employer] EDMS Paulo Reece MD MD pkl Zbigniew Mayfield 4 Jarrett Mederos RN RN ll1 Kelsey Magana RN RN bs2 Scott Summers, RN RN ch5 Jacque Bryan 4 Corrections: (The following items were deleted from the chart) 11/26 20:22 20:21 C-REACTIVE PROTEIN+C.LAB.BRZ drawn and sent. bs2 EDMS 20:23 20:21 LIPASE+C.LAB.BRZ drawn and sent. bs2 EDMS 21:45 21:04 CORONAVIRUS drawn and sent. bs2 EDMS
[2020-11-26] MEDS ORDERED: CEFTRIAXONE 1000 MG/VIAL ONE (23:38)
[2020-11-26] MEDS ORDERED: ASPIRIN 81 MG CHEWABLE TABLET ONE (23:38)
[2020-11-26] MEDS ORDERED: ENOXAPARIN 40 MG/0.4 ML SQ ONE (23:38)
[2020-11-26] MEDS ORDERED: ENOXAPARIN 80 MG/0.8 ML SQ ONE (23:41)
[2020-11-27] MEDS: NA CHLORIDE 0.9% 1,000 ML IV SCH ×3 (00:01→20:49)
[2020-11-27] MEDS ORDERED: ACETAMINOPHEN 500 MG TAB PO PRN (00:01)
[2020-11-27] MEDS ORDERED: ONDANSETRON 4 MG/2 ML VIAL IV PRN (00:01)
[2020-11-27] MEDS ORDERED: NA CHLORIDE 0.9% 2,000 ML ONE (00:42)
--- NOTE | 2020-11-27 00:54 | P.HP ---
Certification for Inpatient Patient admitted to: Inpatient With expected LOS: >2 Midnights Patient will require the following post-hospital care: None Practitioner: I am a practitioner with admitting privileges, knowledge of patient current condition, hospital course, and medical plan of care. Services: Services provided to patient in accordance with Admission requirements found in Title 42 Section 412.3 of the Code of Federal Regulations Patient History Date of Service: 11/26/20 Primary Care Provider: Dr. Ralph Reason for admission: NSTEMI, UTI History of Present Illness: 75-year-old female with history of hypertension, hyperlipidemia, hypothyroidism, CAD presents emergency department for headache, chills. Patient was evaluated in the emergency department labs were significant for D-dimer 1478 potassium 3.4 chloride 111 BUN 22 GFR 63 glucose 110 troponin 0 0.31 CRP 73.5 urinalysis nitrite positive microscopic analysis with loaded bacteria. Patient does report some chest tightness that began upon arrival to the emergency department reports she has had 3 stents placed in the past last heart cath was in 2004. Patient ports she had a stress test approximately 2 months ago with her ict sales assistant which was negative. ED provider wishes to admit for NSTEMI, UTI. Allergies codeine Adverse Reaction (Verified 06/22/20 09:25) Nausea/Vomiting Home Medications: Alendronate Sodium 70 mg PO EVERY 7TH DAY 05/07/20 Ezetimibe [Zetia] 10 mg PO DAILY 05/07/20 Levothyroxine [Synthroid] 50 mcg PO [id number] 05/07/20 Meloxicam [Mobic] 7.5 mg PO DAILY 05/07/20 Pantoprazole [Protonix Tab] 40 mg PO DAILY 05/07/20 Prasugrel HCl 10 mg PO DAILY 05/07/20 hydroCHLOROthiazide [Hydrochlorothiazide] 25 mg PO DAILY 05/07/20 Aspirin [Aspirin EC 81 MG] 81 mg PO DAILY 06/19/20 - Past Medical/Surgical History -: Hypertension -: Hyperlipidemia -: CAD -: Hypothyroidism -: Tubal ligation -: Appendectomy -: Cholecystectomy -: Bilateral wrist surgery -: Bone spur Psychosocial/ Personal History: Retired, lives with daughter - Family History Mother -: Liver disease Father -: Stroke - Social History Smoking Status: Never smoker Alcohol use: No CD- Drugs: No Caffeine use: Yes Place of Residence: Home Review of Systems 10-point ROS is otherwise unremarkable General: Chills Neurological: Other (Headache) Physical Examination - Physical Exam General: Alert, In no apparent distress HEENT: Atraumatic, PERRLA, Mucous membr. moist/pink, EOMI, Sclerae nonicteric Neck: Supple, 2+ carotid pulse no bruit, No LAD, Without JVD or thyroid abnormality Respiratory: Clear to auscultation bilaterally, Normal air movement Cardiovascular: Regular rate/rhythm, Normal S1 S2 Gastrointestinal: Normal bowel sounds, No tenderness Musculoskeletal: No tenderness Integumentary: No rashes Neurological: Normal gait, Normal speech, Normal strength at 5/5 x4 extr, Normal tone, Normal affect Lymphatics: No axilla or inguinal lymphadenopathy - Studies Laboratory Data (last 24 hrs) 11/26/20 20:10: PT 13.3 H, INR 1.15 11/26/20 20:10: WBC 6.70 D, Hgb 13.3, Hct 38.4, Plt Count 187 D 11/26/20 20:10: Sodium 140, Potassium 3.4 L, BUN 22 H, Creatinine 0.88, Glucose 110 H, Magnesium 1.7 L, Total Bilirubin 1.6 H, AST 39 H, ALT 45, Alkaline Phosphatase 97, Lipase 65 L 11/26/20 19:46: Lipase Cancelled Assessment and Plan - Plan Assessment: NSTEMI with history of CAD UTI Hypertension Hyperlipidemia Hypothyroidism Plan: NSTEMI with history of CAD: Last heart catheterization 2004 with stent placed. Reports stress test approximate 2 months ago was negative per patient. Initial troponin elevated, will trend troponins, monitor on telemetry, full dose Lovenox, beta-asiya, aspirin therapy. Patient reports that she is on a medication for her cholesterol but was intolerant of statins, will hold off on initiating statin therapy until home medications can be confirmed. Cardiology consulted. Echocardiogram ordered. UTI: Continue Rocephin, urine culture ordered. Hypertension: Obtain and continue medications. Hyperlipidemia: Obtain and continue medications Hypothyroidism: Thyroid panel with morning labs, obtain and continue medications. DVT PPX: Full dose Lovenox Code status: Full Discharge Plan: Home Plan to discharge in: 48 Hours - Advance Directives Does patient have a Living Will: No Does patient have a Durable POA for Healthcare: No - Code Status/Comfort Care Code Status Assessed: Yes (Full code) Critical Care: No Time Spent Managing Pts Care (In Minutes): 55
[2020-11-27 03:56] LABS: Absolute Lymphocytes (CBC) 1.3 K/uL (0.7-4.9); Basophils % 0.2 % (0-1.3); Hematocrit 35.7 % (36.0-45.0); Lymphocytes % 15.4 % (15.3-44.8); MPV 7.1 fL (7.6-11.3); RBC Red Blood Cell Count 3.91 M/uL (3.86-4.86)
[2020-11-27 04:22] LABS: Albumin 2.6 g/dL (3.4-5.0); Bilirubin Total 0.8 mg/dL (0.2-1.0); Potassium 3.6 mmol/L (3.5-5.1); Protein, Total 6.1 g/dL (6.4-8.2); Thyroid Stimulating Hormone 0.974 uIU/mL (0.360-3.740)
[2020-11-27 04:23] LABS: Troponin I 0.74 ng/mL (0.0-0.045)
[2020-11-27] MEDS: METOPROLOL TAR 25 MG TAB PO SCH ×2 (06:00→18:41)
--- NOTE | 2020-11-27 06:22 | P.PN ---
Subjective Date of Service: 11/27/20 Primary Care Provider: Dr. Ralph Chief Complaint: NSTEMI, UTI Subjective: Improving Physical Examination - Vital Signs Blood Pressure: 88/49 Pulse: 62 Respirations: 16 Pulse Ox (%): 98 - Studies Laboratory Data (last 24 hrs) 11/26/20 20:10: PT 13.3 H, INR 1.15 11/26/20 20:10: WBC 6.70 D, Hgb 13.3, Hct 38.4, Plt Count 187 D 11/26/20 20:10: Sodium 140, Potassium 3.4 L, BUN 22 H, Creatinine 0.88, Glucose 110 H, Magnesium 1.7 L, Total Bilirubin 1.6 H, AST 39 H, ALT 45, Alkaline Phosphatase 97, Lipase 65 L 11/26/20 19:46: Lipase Cancelled Assessment & Plan Discharge Plan: Home Plan to discharge in: 24 Hours Physician Review Additional Text: COVID: Negative CXR: COMPARISON: Chest Single View dated 11/24/2020; Chest Pa And Lat (2 Views) dated 05/07/2020 FINDINGS: Portable technique limits examination quality. The lungs are grossly clear. The heart is mildly prominent in size. No displaced fractures. IMPRESSION: No acute intrathoracic process suspected. CT chest: FINDINGS: No evidence of pulmonary thromboembolism. No acute aortic finding demonstrated. Prominent soft atherosclerotic plaque is seen along the aortic arch. Mild interstitial pulmonary edema is noted. No significant pericardial or pleural fluid. No concerning bony finding. Small hiatal hernia. IMPRESSION: No evidence of pulmonary thromboembolism. Mild interstitial pulmonary edema. CT Head: COMPARISON: Head Brain Wo Cont dated 11/24/2020 TECHNIQUE: All CT scans are performed using dose optimization technique as appropriate and may include automated exposure control or mA/KV adjustment according to patient size. FINDINGS: No intracranial hemorrhage, hydrocephalus or extra-axial fluid collection.No areas of brain edema or evidence of midline shift. The paranasal sinuses and mastoids are clear. The calvarium is intact. IMPRESSION: No acute intracranial abnormality. ECHO: MEASUREMENTS (cm) DIASTOLIC (NORMALS) SYSTOLIC (NORMALS) IVSd 1.1 (0.6-1.2) LA Diam 3.4 (1.9-4.0) LVEF 74% LVIDd 3.7 (3.5-5.7) LVIDs 2.1 (2.0-3.5) %FS 42% LVPWd 1.1 (0.6-1.2) Ao Diam 2.2 (2.0-3.7) 2 DIMENSIONAL ASSESSMENT: RIGHT ATRIUM: NORMAL LEFT ATRIUM: NORMAL RIGHT VENTRICLE: NORMAL LEFT VENTRICLE: NORMAL TRICUSPID VALVE: NORMAL MITRAL VALVE: NORMAL PULMONIC VALVE: NORMAL AORTIC VALVE: NORMAL PERICARDIAL EFFUSION: NONE AORTIC ROOT: NORMAL LEFT VENTRICULAR WALL MOTION: NORMAL DOPPLER/COLOR FLOW: NORMAL COMMENTS: NORMAL 2D ECHOCARDIOGRAM WITH DOPPLER. NO WALL MOTION ABNORMALITY. NO EFFUSION. Heart Catheterization: Date of Procedure: 11/27/2020 Surgeon: Ace Tatum MD Fruit Grading Supervisor: Mr. Roverto Florian. Procedure In Detail: RCA was codominant, had a 70% proximal long stenosis. The circumflex had 2 stents and they were open. The left main had 30% ostial stenosis. There was a 30% in-stent restenosis in the proximal LAD. There was an 80% lesion in the mid LAD by itself. Distal LAD stent was patent. We decided to proceed with an intervention. An XB LAD 3.5 with side hole guide was used. A 0.014 [place] wire was used to cross the lesion successfully. A 3.0 x 12 mm stent was used to stent the mid LAD with 0% residual. There were no complications. Total Conscious Sedation: 60 minutes. Estimated Blood Loss: 5 cc. Postoperative Diagnoses: Coronary artery disease, patent circumflex stent, patent proximal and mid left anterior descending artery stent, now with a new left anterior descending artery stent in the mid left anterior descending artery, 3.0 x 12 with 0% residual. The patient received Effient, aspirin and Angiomax during the procedure. Physical Exam: General: Alert, In no apparent distress HEENT: Atraumatic, PERRLA, Mucous membr. moist/pink, EOMI, Sclerae nonicteric Neck: Supple, 2+ carotid pulse no bruit, No LAD, Without JVD or thyroid abnormality Respiratory: Clear to auscultation bilaterally, Normal air movement Cardiovascular: Regular rate/rhythm, Normal S1 S2 Gastrointestinal: Normal bowel sounds, No tenderness Musculoskeletal: No tenderness Integumentary: No rashes Neurological: Normal gait, Normal speech, Normal strength at 5/5 x4 extr, Normal tone, Normal affect Lymphatics: No axilla or inguinal lymphadenopathy Impression: NSTEMI with history of CAD status post heart catheterization showing patent circumflex stent, patent proximal and mid LAD stent now with new left anterior descending artery stenosis status post stent in the mid left anterior descending UTI Hypertension Hyperlipidemia Hypothyroidism GERD w Hiatal hernia Plan: NSTEMI with history of CAD status post heart catheterization showing patent circumflex stent, patent proximal and mid LAD stent now with new left anterior descending artery stenosis status post stent in the mid left anterior descending: Heart cath performed. Continue aspirin, beta-asiya, Lipitor, Plavix. We will continue to monitor the patient closely. Anticipate discharge tomorrow. UTI: Continue Rocephin, urine culture ordered. Hypertension: Continue metoprolol Hyperlipidemia: Continue Lipitor Hypothyroidism: Continue home medication GERD w Hiatal hernia: Continue Pepcid DVT PPX: Lovenox Code status: Full Discharge Plan: Home Time Spent Managing Pts Care (In Minutes): 55
--- NOTE | 2020-11-27 07:42 | EKG ---
Test Date: 2020-11-26 Test Time: 20:34:52 Ring Barker Operator: WILSON MEASUREMENT RESULTS: Intervals: Rate: 104 FL: 170 QRSD: 74 QT: 344 QTc: 452 Early: P: 33 FL: 170 QRS: -6 T: 18 INTERPRETIVE STATEMENTS: Sinus tachycardia Otherwise normal ECG Compared to ECG 05/07/2020 08:22:10 Sinus rhythm no longer present Electronically Signed On 11-27-20 07:41:49 CDT by Ace Tatum
[2020-11-27] MEDS ORDERED: THIAMINE 200 MG/2 ML INJ ONE (08:23)
[2020-11-27] MEDS ORDERED: FOLIC ACID 1 MG TABLET ONE (08:23)
[2020-11-27] MEDS ORDERED: ASPIRIN EC 81 MG TAB PO ONE (08:23)
[2020-11-27] MEDS ORDERED: METOPROLOL TAR 25 MG TAB ONE (08:24)
[2020-11-27] MEDS ORDERED: FAMOTIDINE 20 MG/2 ML VIAL IV ONE (08:24)
[2020-11-27] MEDS: ASPIRIN EC 81 MG TAB PO SCH (08:48)
[2020-11-27] MEDS: FAMOTIDINE 20 MG/2 ML VIAL IV SCH ×2 (08:49→20:14)
[2020-11-27] MEDS ORDERED: ENOXAPARIN 80 MG/0.8 ML SQ SCH (09:00)
[2020-11-27] MEDS ORDERED: THIAMINE 200 MG/2 ML INJ IVP SCH (09:00)
[2020-11-27] MEDS ORDERED: FOLIC ACID 5 MG/ML VIAL IVP SCH (09:00)
[2020-11-27] MEDS ORDERED: CEFTRIAXONE 1 GM/NS 50 ML 1 GM/50 ML BAG IV SCH (09:00)
[2020-11-27 10:44] VITALS: BMI 29.0
[2020-11-27] MEDS ORDERED: NA CHLORIDE 0.9% 1,000 ML ONE (10:53)
--- NOTE | 2020-11-27 11:25 | ECHO ---
HEIGHT: 5 ft 2 in WEIGHT: 159 lb 0 oz DATE OF STUDY: 11/27/[address]: Walter Brice NP 2-DIMENSIONAL: YES M.MODE: YES DOPPLER: YES COLOR FLOW: YES TDS: NO PORTABLE: NO DEFINITY: NO BUBBLE STUDY: NO DIAGNOSIS: NSTEMI CARDIAC HISTORY: CATHERIZATION: SURGERY: PROSTHETIC VALVE: PACEMAKER: MEASUREMENTS (cm) DIASTOLIC (NORMALS) SYSTOLIC (NORMALS) IVSd 1.1 (0.6-1.2) LA Diam 3.4 (1.9-4.0) LVEF 74% LVIDd 3.7 (3.5-5.7) LVIDs 2.1 (2.0-3.5) %FS 42% LVPWd 1.1 (0.6-1.2) Ao Diam 2.2 (2.0-3.7) 2 DIMENSIONAL ASSESSMENT: RIGHT ATRIUM: NORMAL LEFT ATRIUM: NORMAL RIGHT VENTRICLE: NORMAL LEFT VENTRICLE: NORMAL TRICUSPID VALVE: NORMAL MITRAL VALVE: NORMAL PULMONIC VALVE: NORMAL AORTIC VALVE: NORMAL PERICARDIAL EFFUSION: NONE AORTIC ROOT: NORMAL LEFT VENTRICULAR WALL MOTION: NORMAL DOPPLER/COLOR FLOW: NORMAL COMMENTS: NORMAL 2D ECHOCARDIOGRAM WITH DOPPLER. NO WALL MOTION ABNORMALITY. NO EFFUSION. TECHNOLOGIST: Trudy STOVALL
[2020-11-27] MEDS ORDERED: FENTANYL CITR 100 MCG/2 ML ONE (12:08)
[2020-11-27] MEDS ORDERED: HEPA 1000U/500MLS 1,000 UNIT/500 ML BAG IV ONE (12:08)
[2020-11-27] MEDS ORDERED: MIDAZOLAM HCL 2 MG/2 ML INJ ONE (12:08)
[2020-11-27] MEDS ORDERED: NA CHLORIDE 0.9% 50 ML ONE (12:09)
[2020-11-27] MEDS ORDERED: ATROPINE SULF 1 MG/10 ML SYR IV ONE (12:09)
[2020-11-27] MEDS ORDERED: NA CHLORIDE 0.9% 500 ML ONE (12:26)
[2020-11-27] MEDS ORDERED: PRASUGREL (EFFIENT) 10 MG TAB ONE (13:06)
--- NOTE | 2020-11-27 13:12 | OP ---
Date of Procedure: 11/27/2020 Surgeon: Ace Tatum MD Wall Taper: Mr. Roverto Florian. Admitted to Dr. Pina on 11/26/2020. The patient brought to the medical laboratory technician on 11/27/2020 for non-ST-e levation myocardial infarction. She has a history of coronary artery disease, status post stents in the LAD and the circumflex in the past by Dr. Garcia. Procedure In Detail: Brought to the medical laboratory technician today as an inpatient. Prepped and draped in routine s terile fashion. Given Versed and fentanyl for sedation. Using the Seldinger technique, we put a 6-Fr ench sheath in the right common femoral artery. We used 10 cc of Xylocaine. Angiography there was n ormal. Angio-Seal will be used to close the case. Merline catheter, left and right were used to can nulate the left main and right main respectively. RCA was codominant, had a 70% proximal long stenos is. The circumflex had 2 stents and they were open. The left main had 30% ostial stenosis. There w as a 30% in-stent restenosis in the proximal LAD. There was an 80% lesion in the mid LAD by itself. Distal LAD stent was patent. We decided to proceed with an intervention. An XB LAD 3.5 with side h ole guide was used. A 0.014 [place] wire was used to cross the lesion successfully. A 3.[address] was used to stent the mid LAD with 0% residual. There were no complications. Total Conscious Sedation: 60 minutes. Estimated Blood Loss: 5 cc. Postoperative Diagnoses: Coronary artery disease, patent circumflex stent, patent proximal and mid l eft anterior descending artery stent, now with a new left anterior descending artery stent in the mid left anterior descending artery, 3.0 x 12 with 0% residual. The patient received Effient, aspirin a nd Angiomax during the procedure. Plan: Continue medical therapy, observe her overnight. Send her home in the morning. NB/MODL Voice ID: [id number] Report ID: [id number]
[2020-11-27 18:12] VITALS: O2SAT 98
[2020-11-27] MEDS ORDERED: ATORVASTATIN 40 MG TAB PO SCH (21:00)
[2020-11-27] MEDS ORDERED: CEFTRIAXONE/SWI 1gm 1 GM/10 ML SYR IVP SCH (21:00)
[2020-11-28 05:48] LABS: Absolute Lymphocytes (CBC) 1.4 K/uL (0.7-4.9); Basophils % 0.3 % (0-1.3); Hematocrit 35.4 % (36.0-45.0); Lymphocytes % 20.9 % (15.3-44.8); MPV 6.7 fL (7.6-11.3); RBC Red Blood Cell Count 3.89 M/uL (3.86-4.86)
[2020-11-28] MEDS ORDERED: LEVOTHYROXINE SOD 0.05 MG TABLET PO SCH (06:00)
[2020-11-28 06:03] LABS: Albumin 2.6 g/dL (3.4-5.0); Bilirubin Total 0.7 mg/dL (0.2-1.0); Potassium 3.1 mmol/L (3.5-5.1); Protein, Total 6.1 g/dL (6.4-8.2)
--- NOTE | 2020-11-28 06:12 | P.DS ---
Admission Date: 11/26/20 Discharge Date: 11/28/20 Primary Care Provider: Dr. Ralph Disposition: ROUTINE DISCHARGE Discharge Condition: GOOD Reason for Admission: NSTEMI, UTI Consultations: Cardiology-Dr. Tatum Procedures: COVID: Negative CXR: COMPARISON: Chest Single View dated 11/24/2020; Chest Pa And Lat (2 Views) dated 05/07/2020 FINDINGS: Portable technique limits examination quality. The lungs are grossly clear. The heart is mildly prominent in size. No displaced fractures. IMPRESSION: No acute intrathoracic process suspected. CT chest: FINDINGS: No evidence of pulmonary thromboembolism. No acute aortic finding demonstrated. Prominent soft atherosclerotic plaque is seen along the aortic arch. Mild interstitial pulmonary edema is noted. No significant pericardial or pleural fluid. No concerning bony finding. Small hiatal hernia. IMPRESSION: No evidence of pulmonary thromboembolism. Mild interstitial pulmonary edema. CT Head: COMPARISON: Head Brain Wo Cont dated 11/24/2020 TECHNIQUE: All CT scans are performed using dose optimization technique as ap propriate and may include automated exposure control or mA/KV adjustment according to patient size. FINDINGS: No intracranial hemorrhage, hydrocephalus or extra-axial fluid collection.No areas of brain edema or evidence of midline shift. The paranasal sinuses and mastoids are clear. The calvarium is intact. IMPRESSION: No acute intracranial abnormality. ECHO: MEASUREMENTS (cm) DIASTOLIC (NORMALS) SYSTOLIC (NORMALS) IVSd 1.1 (0.6-1.2) LA Diam 3.4 (1.9-4.0) LVEF 74% LVIDd 3.7 (3.5-5.7) LVIDs 2.1 (2.0-3.5) %FS 42% LVPWd 1.1 (0.6-1.2) Ao Diam 2.2 (2.0-3.7) 2 DIMENSIONAL ASSESSMENT: RIGHT ATRIUM: NORMAL LEFT ATRIUM: NORMAL RIGHT VENTRICLE: NORMAL LEFT VENTRICLE: NORMAL TRICUSPID VALVE: NORMAL MITRAL VALVE: NORMAL PULMONIC VALVE: NORMAL AORTIC VALVE: NORMAL PERICARDIAL EFFUSION: NONE AORTIC ROOT: NORMAL LEFT VENTRICULAR WALL MOTION: NORMAL DOPPLER/COLOR FLOW: NORMAL COMMENTS: NORMAL 2D ECHOCARDIOGRAM WITH DOPPLER. NO WALL MOTION ABNORMALITY. NO EFFUSION. Heart Catheterization: Date of Procedure: 11/27/2020 Surgeon: Ace Tatum MD Marketing Analytics Specialist: Mr. Roverto Florian. Procedure In Detail: RCA was codominant, had a 70% proximal long stenosis. The circumflex had 2 stents and they were open. The left main had 30% ostial stenosis. There was a 30% in-stent restenosis in the proximal LAD. There was an 80% lesion in the mid LAD by itself. Distal LAD stent was patent. We decided to proceed with an intervention. An XB LAD 3.5 with side hole guide was used. A 0.014 Payette wire was used to cross the lesion successfully. A 3.0 x 12 mm stent was used to stent the mid LAD with 0% residual. There were no complications. Total Conscious Sedation: 60 minutes. Estimated Blood Loss: 5 cc. Postoperative Diagnoses: Coronary artery disease, patent circumflex stent, patent proximal and mid left anterior descending artery stent, now with a new left anterior descending artery stent in the mid left anterior descending artery, 3.0 x 12 with 0% residual. The patient received Effient, aspirin and Angiomax during the procedure. Medical Problem List: NSTEMI with history of CAD status post heart catheterization showing patent circumflex stent, patent proximal and mid LAD stent now with new left anterior descending artery stenosis status post stent in the mid left anterior descending UTI Hypertension Hyperlipidemia Hypothyroidism GERD w Hiatal hernia Brief History of Present Illness: 75-year-old female with history of hypertension, hyperlipidemia, hypothyroidism, CAD presents emergency department for headache, chills. Patient was seen in the ER. Patient found to have UTI. She also reported some chest pain. Patient with significant history of CAD. Troponin elevated. NSTEMI was suspected. Patient admitted for further evaluation and treatment. Hospital Course: Patient presented with headache and chills. Patient also reported some chest pain. This was related to UTI and NSTEMI. Troponin elevated. Patient with history of CAD with prior heart catheterization and stents. Patient was admitted for treatment. Patient received IV antibiotic therapy and treatment for NSTEMI. Blood cultures negative. Urine culture shows gram-negative rods. Patient was seen and evaluated by cardiology. Cardiology recommended heart catheterization to further evaluate. Heart catheterization showed patent circumflex stent, patent proximal and mid LAD stent. New left anterior descending artery stenosis identified. A stent was placed to the mid left anterior descending artery. Patient tolerated the procedure well. Patient back to baseline. From a cardiac perspective the patient will be discharged home. Patient will continue with aspirin 81 mg daily, Lipitor 40 mg daily, Plavix 75 mg daily, and metoprolol 25 mg 1 pill twice daily. Patient will follow up with cardiology in 1 week to follow-up hospitalization. Patient plans to return to her network consultant in [place]. Education on CAD, hypertension and hyperlipidemia provided. For her UTI the patient will continue with Ceftin 500 mg 1 pill twice daily for 7 days. UTI prevention provided. Recommend follow-up with PCP within 1 week. PCP will need to follow-up on urine culture results. Patient with HTN. Patient will continue with Metoprolol 25 mg one pill twice daily. Recommend to maintain BP less than 130/80. If BP greater than 140/90 then further adjustment in medication may be required. This can be done with the help of her PCP and cardiology. Patient with hyperlipidemia. At discharge patient will continue with Lipitor 40 mg daily. Recommend to recheck past lipid panel in 4 to 6 weeks to monitor her progress. Further adjustment can be done by her PCP or network consultant. Patient with hypothyroidism. At discharge patient will continue with her medications including levothyroxine 50 mcg daily. Patient with GERD and hiatal hernia. Recommend to continue Pepcid 20 mg 1 pill twice daily. Vital Signs/Physical Exam: Temp Pulse Resp BP Pulse Ox 97.7 F 73 20 112/52 L 98 11/28/20 00:00 11/28/20 00:00 11/28/20 00:00 11/28/20 00:00 11/28/20 00:00 General: Alert, In no apparent distress, Oriented x3, Cooperative HEENT: Atraumatic Neck: Supple Respiratory: Clear to auscultation bilaterally, Normal air movement Cardiovascular: Normal pulses, Regular rate/rhythm Gastrointestinal: Normal bowel sounds, No ascites, No tenderness, No masses, No rebound, No guarding Musculoskeletal: No clubbing, No warmth Integumentary: No rashes, No tenderness/swelling Neurological: Normal speech, Normal strength at 5/5 x4 extr, Normal tone Laboratory Data at Discharge: WBC 6.60 K/uL (4.3-10.9) D 11/28/20 05:12 Hgb 12.2 g/dL (12.0-15.0) 11/28/20 05:12 Hct 35.4 % (36.0-45.0) L 11/28/20 05:12 Plt Count 181 K/uL (152-406) 11/28/20 05:12 PT 13.3 SECONDS (9.5-12.5) H 11/26/20 20:10 INR 1.15 11/26/20 20:10 Sodium 143 mmol/L (136-145) 11/28/20 05:12 Potassium 3.1 mmol/L (3.5-5.1) L 11/28/20 05:12 BUN 11 mg/dL (7-18) 11/28/20 05:12 Creatinine 0.67 mg/dL (0.55-1.3) 11/28/20 05:12 Glucose 73 mg/dL (74-106) L 11/28/20 05:12 Magnesium 1.7 mg/dL (1.8-2.4) L 11/26/20 20:10 Total Bilirubin 0.7 mg/dL (0.2-1.0) 11/28/20 05:12 AST 40 U/L (15-37) H 11/28/20 05:12 ALT 38 U/L (12-78) 11/28/20 05:12 Alkaline Phosphatase 75 U/L (45-117) 11/28/20 05:12 Troponin I 0.43 ng/mL (0.0-0.045) H 11/27/20 11:02 Triglycerides 96 mg/dL (<150) 11/27/20 03:22 Cholesterol 146 mg/dL (<200) 11/27/20 03:22 HDL Cholesterol 43 mg/dL (40-60) 11/27/20 03:22 Cholesterol/HDL Ratio 3.40 11/27/20 03:22 Lipase 65 U/L (73-393) L 11/26/20 20:10 Home Medications: Aspirin [Aspirin EC] 81 mg PO DAILY #90 11/28/20 Atorvastatin Calcium [Lipitor] 40 mg PO DAILY #30 tablet 11/28/20 Clopidogrel Bisulfate [Plavix] 75 mg PO DAILY #30 tablet 11/28/20 Famotidine [Pepcid] 20 mg PO BID #60 tab 11/28/20 Levothyroxine [Synthroid*] 0.05 mg PO [id number] tablet 11/28/20 Metoprolol Tartrate 25 mg PO BID #60 tablet 11/28/20 New Medications: Aspirin [Aspirin EC] 81 mg PO DAILY #90 Atorvastatin Calcium [Lipitor] 40 mg PO DAILY #30 tablet Metoprolol Tartrate 25 mg PO BID #60 tablet Famotidine [Pepcid] 20 mg PO BID #60 tab Clopidogrel Bisulfate [Plavix] 75 mg PO DAILY #30 tablet Physician Discharge Instructions: Patient presented with headache and chills. Patient also reported some chest pain. This was related to UTI and NSTEMI. Troponin elevated. Patient with history of CAD with prior heart catheterization and stents. Patient was admitted for treatment. Patient received IV antibiotic therapy and treatment for NSTEMI. Blood cultures negative. Urine culture shows gram-negative rods. Patient was seen and evaluated by cardiology. Cardiology recommended heart catheterization to further evaluate. Heart catheterization showed patent circumflex stent, patent proximal and mid LAD stent. New left anterior kaye cending artery stenosis identified. A stent was placed to the mid left anterior descending artery. Patient tolerated the procedure well. Patient back to baseline. From a cardiac perspective the patient will be discharged home. Patient will continue with aspirin 81 mg daily, Lipitor 40 mg daily, Plavix 75 mg daily, and metoprolol 25 mg 1 pill twice daily. Patient will follow up with cardiology in 1 week to follow-up hospitalization. Patient plans to return to her network consultant in [place]. Education on CAD, hypertension and hyperlipidemia provided. For her UTI the patient will continue with Ceftin 500 mg 1 pill twice daily for 7 days. UTI prevention provided. Recommend follow-up with PCP within 1 week. PCP will need to follow-up on urine culture results. Patient with HTN. Patient will continue with Metoprolol 25 mg one pill twice daily. Recommend to maintain BP less than 130/80. If BP greater than 140/90 then further adjustment in medication may be required. This can be done with the help of her PCP and cardiology. Patient with hyperlipidemia. At discharge patient will continue with Lipitor 40 mg daily. Recommend to recheck past lipid panel in 4 to 6 weeks to monitor her progress. Further adjustment can be done by her PCP or network consultant. Patient with hypothyroidism. At discharge patient will continue with her medications including levothyroxine 50 mcg daily. Patient with GERD and hiatal hernia. Recommend to continue Pepcid 20 mg 1 pill twice daily. Diet: AHA Activity: Ad karishma Followup: NONE,NONE [Primary Care Provider] - Time spent managing pt's care (in minutes): 55
[2020-11-28] MEDS: METOPROLOL TAR 25 MG TAB PO SCH (06:23)
[2020-11-28] MEDS: NA CHLORIDE 0.9% 1,000 ML IV SCH (06:23)
[2020-11-28 08:26] VITALS: TEMP 97.1
[2020-11-28] MEDS ORDERED: POTASSIUM CL SA 10 MEQ TAB PO ONE (09:00)
[2020-11-28] MEDS ORDERED: FOLIC ACID 1 MG TABLET PO SCH (09:00)
[2020-11-28] MEDS ORDERED: CLOPIDOGREL 75 MG TABLET PO SCH (09:00)
[2020-11-28] MEDS ORDERED: THIAMINE HCL 100 MG TABLET PO SCH (09:00)
[2020-11-28] MEDS ORDERED: ENOXAPARIN 40 MG/0.4 ML SQ SCH (09:00)
[2020-11-28] MEDS: FAMOTIDINE 20 MG/2 ML VIAL IV SCH (09:43)
[2020-11-28] MEDS: ASPIRIN EC 81 MG TAB PO SCH (09:43)
[2020-11-28] MEDS ORDERED: CEFUROXIME 250 MG TAB PO SCH (10:00)
[2020-11-28 10:26] LABS: White Blood Cell Scan OK (OK)
[2020-11-28 10:27] LABS: Blood Morphology Comment NOT SEEN (NOT SEEN); Platelet Estimate ADEQ
[2020-11-28 12:25] VITALS: BP 133/56
--- NOTE | 2020-11-28 17:34 | PN ---
Date of Progress Note: 11/28/2020 Ms. Alarcon came in with non-ST elevation myocardial infarction, was taken to the pharmaceutical laboratory technician yesterday and was found to have a mid LAD stenosis. She has a proximal LAD stent that was open and distal LAD stent that was open. She had a proximal circumflex stents that were open. A stent of the mid LAD w as done using a 3.0 x 12 Synergy stent without any complication. She also has a 70% proximal RCA saima t needs to be addressed later. The patient has had no complaints since the catheterization. Her tu in remained stable without any hematoma. She remained in sinus rhythm. She will be going home on as pirin, statin, beta-blockers, and Plavix and I will see her in the office in the next week or 2. GARRY/FENG Voice ID: [id number] Report ID: [id number]
--- NOTE | 2020-11-28 17:34 | CON ---
Date of Consultation: 11/27/2020 Admitted on 11/26/[address] Pina' service. Reason For Consultation: Non-ST elevation myocardial infarction. History Of Present Illness: Ms. Alarcon is a patient was 75 years old. Has diabetes, hypertension, dyslipidemia, coronary artery disease. Has had LAD stents as well as circumflex stents in the past. Came in with substernal chest pain, radiating to the back and arms with diaphoresis, shortness of b reath, was found to have EKG that showed possible anterolateral ischemia and her troponin was positiv e and I was consulted. She denied PND, orthopnea, pedal edema, palpitation, or syncope. Denied any fever or chills. Past Medical History: As stated above. Allergies: NONE. Review of Systems: Negative. Social History: Negative. Family History: Positive for heart disease and diabetes. Medications: At home are listed by Dr. Pina. Physical Examination: Vital Signs: Stable. Afebrile, pain-free, sinus rhythm. HEENT: Negative. Neck: Supple with no bruit. Chest: Clear. Cardiac: Exam revealed a regular rhythm and rate with S4 gallops. No murmurs or rubs. Abdomen: Benign. Extremities: Revealed no clubbing, cyanosis, or edema. Diagnostic Data: As stated earlier. Her creatinine was normal. Chest x-ray was normal. Impression And Plan: Non-ST elevation myocardial infarction in a patient with history of coronary ar marek disease, status post multiple stents in the past by Dr. Juan Garcia in [place]. She now sees a copywriter in [place]. The patient needs a heart catheterization to define her coronary anatomy and rule out stent restenosis. She agrees to proceed. She understands the risk and the benefit. I will do the catheterization today, 11/27/2020. Her other problems are stable at this point. Continu e present regimen. NB/MODL Voice ID: [id number] Report ID: [id number]
== END 2020-11-28 11:35 | disposition home or self-care (01) | DRG 247 ==
LOC: ER 18:49 → ERHOLD 23:50 → 2ND 11-27 18:05
PROVIDERS: ADMIT Family Medicine; ATTEND Family Medicine
PROC: 027034Z Dilation of Coronary Artery, One Artery with Drug-eluting Intraluminal Device, Percutaneous Approach (ICD-10-PCS; principal; 2020-11-27)
PROC: B201YZZ Plain Radiography of Multiple Coronary Arteries using Other Contrast (ICD-10-PCS; 2020-11-27)
DX: I21.4 Non-ST elevation (NSTEMI) myocardial infarction (principal); N39.0 Urinary tract infection, site not specified; I25.10 Atherosclerotic heart disease of native coronary artery without angina pectoris; I10 Essential (primary) hypertension; E78.5 Hyperlipidemia, unspecified; E03.9 Hypothyroidism, unspecified; K21.9 Gastro-esophageal reflux disease without esophagitis; K44.9 Diaphragmatic hernia without obstruction or gangrene; B96.20 Unspecified Escherichia coli [E. coli] as the cause of diseases classified elsewhere; Z95.5 Presence of coronary angioplasty implant and graft; Z20.822 Contact with and (suspected) exposure to COVID-19
CPT/HCPCS: 36415; 70450; 71045; 71275; 80048; 80053; 80061; 80076; 81003; 81015; 82947; 83605; 83690; 83735; 83880; 84145; 84439; 84443; 84484; 85025; 85347; 85379; 85610; 86140; 87040; 87077; 87086; 87088; 87186; 92928; 93005; 93306; 93454; 96361; 96365; 96366; 96372; 96375; 99284; 99285; C1725; C1760; C1877; C1893; C9600; J0583; J0696; J1644; J1650; J2250; J2550; J3010; J3411; J3475; J7030; J7040; Q9967; U0003

== ENCOUNTER 2020-12-07 16:10 | Emergency (ER) | payer OTHER ==
--- OUTSIDE RECORDS SUMMARY | 2020-12-07 16:16 | XMS REPORT | Continuity of Care Document ---
:1945 Author Organization [facility] t Address [address] [place] [address] Care Team Providers Name Role Phone BELIA Primary Care Physician Unavailable Jakub Villafana Attending Clinician Wan Tracy Attending Clinician Jodi Castillo Attending Clinician Karma Hook MD Attending Clinician Aixa MANDUJANO Attending Clinician BELIA Attending Clinician Unavailable AIXA Admitting Clinician Unavailable BELIA Admitting Clinician Unavailable Payers Payer Name Policy Type Policy Number Effective Date Expiration Date S ource Problems Condition Condition Condition Status Onset Resolution Last Treating Co mments Source Name Details Category Date Date Treatment Clinician Date Urinary Urinary Disease Active Methodi tract tract 2-13 st infection infection 00:00: [facility] without without 00 l hematuria hematuria Hypothyroi Hypothyroi Problem Active [facility] dis[facility] dism 6 [facility] 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 Chorioreti 611 da nal scar nal Scar 00:00: [facility] Nuclear Nuclear Problem Active [place] sclerotic Sclerotic 6-11 da cataract Cataract 00:00: [facility] Hypermetro Hypermetro Problem Active M [facility] gabriele gabriele 6 da 00[facility]: [facility] Myopia Myopia Problem Active [facility] 09-04 da 00:[facility] Regular Regular Problem Active [place] astigmatis Astigmatis 11 da m m 00:[facility] Presbyopia Presbyopia Problem Active [facility] 09-04 da 00:[facility] Essential Essential Problem Active [facility] hypertensi Hypertensi 09-04 da on on 00:00: [facility] Heart Heart Problem Active [place] disease Disease 09-04 da 00:[facility]: [facility] Arthritis Arthritis Problem Active [facility] 09-04 da 00:[facility] Pseudophak Pseudophak Problem Active [facility] ia ia 09-04 da 00:[facility] Colon Colon Disease Active [facility] cancer cancer 10-09 screening screening 00:00: [facility] 00 l [...] 00:00: Hospita 00 l Pseudophak Problem Active 2013-032020-12-03 M emoria ia 04-27 21:33:35 l (disorder) 00:00: Yfn n Pseudophak 00 ia (disorder) Active 02/24/2014 Problem 12/03/2020 Data migrated from [facility] on 08/26/14. [facility],Misc her Neuro Arterioscl Problem Active 2013-032020-12-03 M emoria erotic 04-05 21:33:35 l vascular 00:00: Nucla disease Arterioscl 00 (disorder) erotic vascular disease (disorder) Active 02/03/2014 Problem 12/03/2020 Data migrated from [employer] on 08/26/14. [facility] her Neuro Disorder Problem Active 2013-032020-12-03 Mem oria of 04-05 21:33:35 l refraction Disorder 00:00: He rmann AND/OR of 00 accommodat refraction ion AND/OR (disorder) accommodat ion (disorder) Active 02/03/2014 Problem 12/03/2020 Data migrated from [employer] on 08/26/14. [facility] her Neuro Hypertensi Problem Active 2013-032020-12-03 M emoria ve 04-05 21:33:35 l disorder, 00:00: Nucla systemic Hypertensi 00 arterial ve (disorder) disorder, systemic arterial (disorder) Active 02/03/2014 Problem 12/03/2020 Data migrated from [employer] on 08/26/14. [facility] her Neuro Hypothyroi Problem Active 2013-032020-12-03 M emoria dism 04-05 21:33:35 l (disorder) 00:00: Yfn n Hypothyroi 00 dism (disorder) Active 02/03/2014 Problem 12/03/2020 Data migrated from [employer] on 08/26/14. [facility] her Neuro Radial Radial Problem Active [place] styloid Styloid da tenosynovi Tenosynovi Me dical [facility] tis Group Chorioreti Problem Active 2020-12-03 M emoria nal scar 21:33:35 l (disorder) Yfn n Chorioreti nal scar (disorder) Active Problem 12/03/2020 [facility] her Neuro Hyperlipid Problem Active 2020-12-03 M emoria emia 21:33:35 l (disorder) Yfn n Hyperlipid emia (disorder) Active Problem 12/03/2020 [facility] her Neuro Nuclear Problem Active 2020-12-03 Thad fern cataract 21:33:35 l (disorder) Nuclear Her mauricio cataract (disorder) Active Problem 12/03/2020 [facility] her Neuro Temporal Problem Active 2020-12-03 Mem oria arteritis 21:33:35 l (disorder) Temporal He rmann arteritis (disorder) Active Problem 12/03/2020 [facility] her Neuro Transient Problem Active 2020-12-03 Me moria ischemic 21:33:35 l attack [place] (disorder) Transient ischemic attack (disorder) Active Problem 12/03/2020 [facility] her Neuro Chronic Problem Active 2020-12-03 Thad fern kidney 21:33:35 l disease Chronic Yfn n stage 3 kidney (disorder) disease stage 3 (disorder) Active Problem 12/03/2020 [facility] her Neuro Coronary Problem Active 2020-12-03 Mem oria arterioscl 21:33:35 l erosis Coronary Yfn n (disorder) arterioscl erosis (disorder) Active Problem 12/03/2020 [facility] her Neuro Osteoporos Problem Active 2020-12-03 M emoria is 21:33:35 l (disorder) Yfn n Osteoporos is (disorder) Active Problem 12/03/2020 [facility] 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 21:33:35 l (disorder) Yfn n Polycythem ia vera (disorder) Active Problem 12/03/2020 [facility] her Neuro Allergies, Adverse Reactions, Alerts Allergy Allergy Status Severity Reaction(s) Onset Inactive Treating Comm ents Source Name Type Date Date Clinician Codeine Propensi Active GI nausea Methodi ty to Intolerance and st adverse dizziness Hospit a reaction l s to drug codeine codeine Active Memoria l [place] STATINS- Allergy Active Other [place] to da REDUCTAS substanc Medica l E e Group INHIBITO RS Family History Family Member Diagnosis Comments Start Date Stop Date Source Natural sister Heart attack [facility] Natural brother [facility] Natural brother Lung cancer [facility] father [facility] Natural mother Cirrhosis [facility] Social History Social Habit Start Date Stop Date Quantity Comments Source Social History 2020-07-17 2020-07-17 [facility] dayanna 20:15:13 20:15:13 Tobacco use and 2020-05-09 2020-05-09 Never used [facility] exposure 00:00:00 00:00:00 Hospital Alcohol intake 2020-05-09 2020-05-09 Current [facility] 00:00:00 00:00:00 non-drinker of Hospital alcohol (finding) Sex [birth year] [facility] 00:00:00 00:00:00 Hospital Smoking Status Start Date Stop Date Source Never smoker [facility] Medications Ordered Filled Start Stop Current Ordering Indication Dosage Frequency Signature Comments Components Source Medication Medication Date Date Medication? Clinician (SIG) Name Name Sulfamethox Yes 1 tab, PO, Memoria azole 800 8-06 BID, X 10 l MG / 16:31: day, # 20 Nucla Trimethopri 00 tab, 0 m 160 MG Refill(s), Oral Tablet Pharmacy: [Bactrim] [facility][id number], 157.48, cm, 10/30/20 11:04:00 CDT, Height, 73.636, kg, 10/30/20 11:04:00 CDT, Weight Timolol Yes 0 Memoria Maleate 8-06 Refill(s) l (Eqv-Timopt 16:08: Yfn n ic) 0.5% 00 ophthalmic solution pantoprazol Yes = 1 tab, Me moria e 40 mg 7-26 PO, Daily, l oral 17:51: # 90 tab, [place] enteric 00 0 coated Refill(s), tablet Pharmacy: [facility] #[id number], 157.48, cm, 08/28/20 14:10:00 CDT, Height, 73.182, kg, 08/28/20 14:10:00 CDT, Weight predniSONE Yes 5 mg = 1 Mem oria 5 mg oral 6-04 tab, PO, l tablet 19:19: Daily, # Nucla 00 30 tab, 3 Refill(s), Pharmacy: [facility] #[id number], 157.48, cm, 08/28/20 14:10:00 CDT, Height, 73.182, kg, 08/28/20 14:10:00 CDT, Weight 0.5 ML Yes 0.5 mL, Memoria Varicella 6-03 IM, ONCE, l zoster 14:09: repeat Nucla virus 00 dose in 2 glycoprotei to 6 n E, months, # recombinant 1 mL, 1 0.1 MG/ML Refill(s), Injection Pharmacy: [Shingrix] [facility] #[id number], 157.48, cm, 08/27/20 8:52:00 CDT, Height, 73.182, kg, 08/27/20 8:52:00 CDT, Weight Adacel 2020-0 Yes 0.5 ml, Memoria (Tdap) 6-03 IM, ONCE, l intramuscul 14:09: # 1 mL, 0 H ermann ar 00 Refill(s), suspension Pharmacy: [facility] #[id number], 157.48, cm, 08/27/20 8:52:00 CDT, Height, 73.182, kg, 08/27/20 8:52:00 CDT, Weight Alendronic 2020-0 Yes 70 mg = 1 Me moria acid 70 MG 6-03 tab, PO, l Oral Tablet 14:05: qWeek, # He rmann 00 12 tab, 3 Refill(s), Pharmacy: [facility] #[id number], 157.48, cm, 08/27/20 8:52:00 CDT, Height, 73.182, kg, 08/27/20 8:52:00 CDT, Weight predniSONE 2020-0 No 10 mg = 1 Me moria 10 mg oral 5-04 tab, PO, l tablet 23:16: Daily, # [place] 00 30 tab, 2 Refill(s), Pharmacy: [facility] #[id number], 157.48, cm, 07/22/20 8:24:00 CDT, Height, 73.045, kg, 07/22/20 8:24:00 CDT, Weight prasugrel 2020-0 Yes 10 mg = 1 Mem oria 10 mg oral 4-28 tab, PO, l tablet 13:29: Daily, # [place] 00 30 tab, 0 Refill(s) predniSONE 2020-0 Yes 20 mg = 1 Me moria 20 mg oral 4-23 tab, PO, l tablet 20:45: Daily, Nucla 00 TAKE 1 TABLET BY MOUTH TWICE DAILY, X 30 day, # 30 tab, 2 Refill(s), Pharmacy: [facility] #[id number], 73.182, kg, 07/17/20 15:12:00 CDT, Weight predniSONE [...] PO, l oral tablet 20:30: Bedtime, # [place] 00 30 tab, 0 Refill(s) meloxicam Yes 7.5 mg = 1 Me moria 7.5 mg oral 4-23 tab, PO, l tablet 20:30: Daily, # [place] 00 30 tab, 0 Refill(s) aspirin 2020- No 81mg QD Take 1 Methodi (ECOTRIN) 2-18 tablet (81 st 81 MG 00:00: 04:59 mg total) Hospit a enteric 00 :00 by mouth l coated daily for tablet 30 doses. aspirin 2020- No 81mg QD Take 1 Methodi (ECOTRIN) 218 tablet (81 st 81 MG 00:00: 04:59 mg total) Hospit a enteric 00 :00 by mouth l coated daily for tablet 30 doses. aspirin 2020- No 81mg QD Take 1 Methodi (ECOTRIN) 2-11 05- tablet (81 st 81 MG 00:00: 00:00 mg total) Hospit a enteric 00 :00 by mouth l coated daily for tablet 30 doses. aspirin 2020- No 81mg QD Take 1 Methodi (ECOTRIN) 2-11 05-14 tablet (81 st 81 MG 00:00: 00:00 mg total) Hospit a enteric 00 :00 by mouth l coated daily for tablet 30 doses. aspirin 2020-2020- No 81mg QD Take 1 Methodi (ECOTRIN) 2-11 05- tablet (81 st 81 MG 00:00: 00:00 [...] mouth. st 20:44: Hospita 21 l prasugreL 0 Yes 10mg QD Take 10 mg Me thodi (EFFIENT) 2-[address] 10 mg 20:44: daily. Hospita tablet 21 l predniSONE Yes 20mg Q.5D Take 20 mg M ethodi (DELTASONE) 2-[address] 20 mg 20:44: (two) Hospita tablet 21 times a l day. EZETIMIBE Yes Take by Metho di ORAL 2-[address] 20:44: Hospita 21 l prasugreL Yes 10mg QD Take 10 mg Me thodi (EFFIENT) 2-[address] 10 mg 20:44: daily. Hospita tablet 21 l predniSONE 0 Yes 20mg Q.5D Take 20 mg M ethodi (DELTASONE) 2-[address] 20 mg 20:44: (two) Hospita tablet 21 times a l day. hydroCHLORO 2020- No 25mg QD Take 25 mg Methodi thiazide 2-14 -[address] (HYDRODIURI 20:36: 00:00 daily. Hos jorge L) 25 MG 06 :00 l tablet hydroCHLORO 2020- No 25mg QD Take 25 mg Methodi thiazide 2-14 -[address] (HYDRODIURI 20:36: 00:00 daily. Hos jorge L) 25 MG 06 :00 l tablet atorvastati 2020- No 40mg QD Take 1 Met hodi n (Lipitor) -07 06-17 tablet (40 s t 40 mg 00:00: 04:59 mg total) Hospit a tablet 00 :00 by mouth l daily for 30 days. NIFEdipine 2020- No 30mg QD Take 1 Meth romario XL -07 06-17 tablet (30 st (PROCARDIA 00:00: 04:59 mg [...] MG (twelve) capsule hours for 9 days. nitrofurant 2020- No 100mg Q.5D Take [...] (twelve) capsule hours for 9 days. atorvastati 2020- No 40mg QD Take [...] 24 hr daily for tablet 30 days. NIFEdipine No 30mg QD Take [...] mouth l daily for 30 days. nitrofurant No 100mg Q.5D Take 1 Me thodi oin, 05-[address] macrocrysta 00:00: 00:00 (100 mg Ho spita l-monohydra 00 :00 total) by l te, mouth (MACROBID) every 12 100 MG (twelve) capsule hours for 9 days. atorvastati 2020- No 40mg QD Take [...] hr daily for tablet 30 days. amLODIPine 2018-0 2021- No 1{tbl} QD Take 1 Me thodi (NORVASC) 10-[address] 10 mg 00:00: 00:00 mouth Hospita tablet 00 :00 daily. l amLODIPine 2020- No 1{tbl} QD Take 1 Me thodi (NORVASC) 10-[address] 10 mg 00:00: 00:00 mouth Hospita tablet 00 :00 daily. l prasugrel 2020- No 10mg QD Take 10 mg M ethodi (EFFIENT) 06-[address] 10 mg 00:00: 00:00 daily. Hospita tablet 00 :00 l prasugrel 2020- No 10mg QD Take 10 mg M ethodi (EFFIENT) 06-[address] 10 mg 00:00: 00:00 daily. Hospita tablet 00 :00 l alendronate Yes TAKE 1 Meth romario (FOSAMAX) 3-[address] 70 MG 00:00: MOUTH Hospita tablet 00 WEEKLY FOR l BONES alendronate Yes TAKE 1 Meth romario (FOSAMAX) 3-[address] 70 MG 00:00: MOUTH Hospita tablet 00 WEEKLY FOR l BONES pantoprazol Yes TAKE 1 Meth romario e 2-[address] (PROTONIX) 00:00: MOUTH AT Hos jorge 40 MG EC 00 BEDTIME l tablet FOR REFLUX pantoprazol Yes TAKE 1 Meth romario e 2-[address] (PROTONIX) 00:00: MOUTH AT Hos jorge 40 MG EC 00 BEDTIME l tablet FOR REFLUX levothyroxi Yes TAKE 1 Meth romario ne 2-[address] (SYNTHROID, 00:00: MOUTH Hospi ta LEVOXYL) 50 00 DAILY FOR l mcg tablet THYROID levothyroxi Yes TAKE 1 Meth romario ne 2-[address] (SYNTHROID, 00:00: MOUTH Hospi ta LEVOXYL) 50 00 DAILY FOR l mcg tablet THYROID alendronate alendronate No alendronat [place] 70 mg 70 mg e 70 mg da tablet tablet tablet [facility] hydrochloro hydrochloro No hydrochlor [place] thiazide 25 thiazide 25 othiazide da mg tablet mg tablet 25 mg Epis senior copywriter tablet [facility] levothyroxi levothyroxi No levothyrox [place] ne 50 mcg ne 50 mcg ine 50 mcg da tablet tablet tablet [facility] meloxicam meloxicam No meloxicam [place] 7.5 mg 7.5 mg 7.5 mg da tablet tablet tablet [facility] pantoprazol pantoprazol No pantoprazo [place] e 40 mg e 40 mg le 40 mg da tablet,alejandra tablet,alejandra tablet,del [facility] yed release yed release ayed a l release [facility] Praluent Praluent No Praluent [place] Pen 75 Pen 75 Pen 75 da mg/mL mg/mL mg/mL [facility] subcutaneou subcutaneou subcutaneo al s pen s pen [facility] injector injector injector Out reac h Program prasugrel prasugrel No prasugrel [place] 10 mg 10 mg 10 mg da tablet tablet tablet [facility] alendronate alendronate No alendronat [place] 70 mg [...] DAYS DAYS EVERY DAY FOR 30 DAYS Immunizations Ordered Immunization Filled Immunization Date Status Commen Source Name Name [id number] 2020-06-13 Completed Thad [id number] 00:00:00 <sup>1</sup> [id number] 2020-05-23 Completed Thad Simmons [id number] 00:00:00 <sup>2</sup> Influenza vaccine, Influenza vaccine, 2020-01-15 Completed [place] quadrivalent, quadrivalent, 14:13:58 Medical Group adjuvanted adjuvanted influenza, high dose influenza, high 2019-04-24 Completed [place] seasonal dose seasonal 13:04:21 Medical Haile up Vital Signs Vital Name Observation Time Observation Value Comments Source BP Diastolic 2020-01-15 00:00:00 79 mm[Hg] [facility] Height 2020-01-15 00:00:00 62 [in_i] [facility] BMI (Body Mass 2020-01-15 00:00:00 30.3 kg/m2 [facility] Medical Index) Group BP Systolic 2020-01-15 00:00:00 136 mm[Hg] [facility] Body Weight 2020-01-15 00:00:00 2647 [oz_av] [place] [facility] BP Diastolic 2019-04-24 00:00:00 79 mm[Hg] [place] [facility] Height 2019-04-24 00:00:00 62 [in_i] [place] [facility] BMI (Body Mass 2019-04-24 00:00:00 29[facility]1 [facility] BP Systolic 2019-04-24 00:00:00 128 mm[Hg] [place] [facility] Body Weight 2019-04-24 00:00:00 2544 [oz_av] [place] [facility] Height 2019-04-09 00:00:00 62 [in_i] [place] [facility] BMI (Body Mass 2019-04-09 00:00:00 29.3 kg/m2 [facility] Body Weight 2019-04-09 00:00:00 160 [lb_av] [place] [facility] BP Diastolic 2018-09-11 00:00:00 74 mm[Hg] [place] [facility] Height 2018-09-11 00:00:00 62 [in_i] [place] [facility] BMI (Body Mass 2018-09-11 00:00:00 29.8 kg/m2 [facility] BP Systolic 2018-09-11 00:00:00 122 mm[Hg] [place] [facility] Body Weight 2018-09-11 00:00:00 2608 [oz_av] [place] [facility] BP Diastolic 2018-06-25 00:00:00 80 mm[Hg] [place] [facility] Height 2018-06-25 00:00:00 62 [in_i] [place] [facility] BMI (Body Mass 2018-06-25 00:00:00 29.3 kg/m2 [facility] BP Systolic 2018-06-25 00:00:00 124 mm[Hg] [place] [facility] Body Weight 2018-06-25 00:00:00 2560 [oz_av] [place] [facility] BP Diastolic 2018-06-14 00:00:00 79 mm[Hg] [place] [facility] Height 2018-06-14 00:00:00 62 [in_i] [facility] BMI (Body Mass 2018-06-14 00:00:00 30 kg/m2 [facility] Medical Index) Group BP Systolic 2018-06-14 00:00:00 143 mm[Hg] [facility] Body Weight 2018-06-14 00:00:00 2627 [oz_av] [facility] Systolic (mm Hg) 2020-10-30 16:04:00 Thad rial Nucla Diastolic (mm Hg) 2020-10-30 16:04:00 Mem orial Nucla Height 2020-10-30 16:04:00 157.48 cm [facility] [place] Weight 2020-10-30 16:04:00 [facility] [place] BMI Calculated 2020-10-30 16:04:00 Memori al [place] Systolic (mm Hg) 2020-08-28 19:10:00 Thad rial Nucla Diastolic (mm Hg) 2020-08-28 19:10:00 Mem orial [place] Heart Rate 2020-08-28 19:10:00 [facility]a Respitory Rate 2020-08-28 19:10:00 Memori al Nucla Height 2020-08-28 19:10:00 157.48 cm [facility] [place] Weight 2020-08-28 19:10:00 [facility] BMI Calculated 2020-08-28 19:10:00 Memori al [place] Systolic (mm Hg) 2020-08-27 13:52:00 Thad rial [place] Diastolic (mm Hg) 2020-08-27 13:52:00 Mem orial [place] Heart Rate 2020-08-27 13:52:00 [facility] Height 2020-08-27 13:52:00 157.48 cm [facility] Weight 2020-08-27 13:52:00 [facility] BMI Calculated 2020-08-27 13:52:00 Memori al [place] Systolic (mm Hg) 2020-07-22 13:54:00 Thad rial Nucla Diastolic (mm Hg) 2020-07-22 13:54:00 Mem orial [place] Heart Rate 2020-07-22 13:54:00 [facility] Systolic (mm Hg) 2020-07-22 13:24:00 Thad rial Nucla Diastolic (mm Hg) 2020-07-22 13:24:00 [facility] orial Nucla Heart Rate 2020-07-22 13:24:00 [facility] Height 2020-07-22 13:24:00 157.48 cm [facility] [place] Weight 2020-07-22 13:24:00 [facility] Nucla BMI Calculated 2020-07-22 13:24:00 Memori al Nucla Systolic (mm Hg) 2020-07-17 20:12:00 Thad rial [place] Diastolic (mm Hg) 2020-07-17 20:12:00 [facility] orial [place] Heart Rate 2020-07-17 20:12:00 [facility] [place] Respitory Rate 2020-07-17 20:12:00 Memori al Nucla Weight 2020-07-17 20:12:00 [facility] 2020-05-10 18:58:41 111 mm[Hg] [facility] pressure Diastolic blood 2020-05-10 18:58:41 70 mm[Hg] [facility] pressure Heart rate 2020-05-10 18:58:41 65 /min [facility] Body temperature 2020-05-10 18:58:41 35.78 Donna [facility] Respiratory rate 2020-05-10 18:58:41 18 /min [facility] Oxygen saturation in 2020-05-10 18:58:41 96 /min [facility] Arterial blood by Pulse oximetry Body height 2020-05-09 21:30:00 157.5 cm [facility] Body weight 2020-05-09 21:30:00 73.483 kg [facility] BMI 2020-05-09 21:30:00 29.63 kg/m2 [facility] Procedures Procedure Date / Time Performing Clinician Source Performed Temporal artery biopsy 2020-07-01 05:00:00 Karson Simmons US CAROTID DUPLEX 2020-05-10 20:41:52 Chong Mccarthy [facility] BILATERAL [facility] MRI BRAIN WO CONTRAST 2020-05-10 16:20:26 [facility]ccarthy [facility] T[facility], W CONTRAST, 2020-05-10 14:00:00 Chong Mccarthy [facility] W DOPPLER ([id number]) [place] HIV AG/AB COMBINATION 2020-05-10 10:32:00 [facility] LIPID PANEL 2020-05-10 10:31:00 Shari, [facility] HOMOCYSTINE, PLASMA 2020-05-10 10:31:00 Shari, [facility] THYROID STIMULATING 2020-05-10 10:31:00 Shari, [facility] HORMONE [place] T4, FREE 2020-05-10 10:31:00 Shari, [facility] C-REACTIVE PROTEIN 2020-05-10 10:31:00 Shari, [facility] BASIC METABOLIC PANEL 2020-05-10 10:31:00 Aix[facility] ESTIMATED GFR 2020-05-10 10:31:00 Aixa [facility] spital HEMOGLOBIN A1C 2020-05-10 10:25:00 Shari [facility] FOLATE LEVEL 2020-05-10 10:25:00 Shrai, [facility] VITAMIN B12 LEVEL 2020-05-10 10:25:00 Shari, [facility] SYPHILIS TREPONEMA SCREEN 2020-05-10 10:25:00 Shari, [facility] WITH RPR CONFIRMATION [place] (REVERSE ALGORITHM) SEDIMENTATION RATE 2020-05-10 10:12:00 Shari, [facility] PROTHROMBIN TIME WITH INR 2020-05-10 10:12:00 Shari [facility] PARTIAL THROMBOPLASTIN 2020-05-10 10:12:00 Shari [facility] TIME (PTT) [facility] HC COMPLETE BLD COUNT 2020-05-10 10:12:00 A[facility]a [facility] W/AUTO DIFF URINALYSIS, AUTOMATED WITH 2020-05-10 04:57:00 Aixa [facility] MICROSCOPY CT ANGIOGRAM HEAD W 2020-05-09 23:27:56 Andriy [facility] CONTRAST CT ANGIOGRAM NECK W 2020-05-09 23:27:11 MonsterAndriy pisano [facility] CONTRAST COVID-19 QUALITATIVE 2020-05-09 23:10:00 MonsterAndriy pisano [facility] RT-PCR CT STROKE BRAIN WO 2020-05-09 22:14:44 MonsterAndriy pisano [facility] CONTRAST URINALYSIS 2020-05-09 22:14:00 MonsterAndriy pisano [facility] CBC WITH PLATELET AND 2020-05-09 21:38:00 MonsterAndriy pisano [facility] DIFFERENTIAL COMPREHENSIVE METABOLIC 2020-05-09 21:38:00 MonsterAndriy [facility] PANEL TROPONIN, I-STAT 2020-05-09 21:38:00 MonsterAndriy pisano [facility] B NATRIURETIC PEP, I-STAT 2020-05-09 21:38:00 MonsterAndriy [facility] ESTIMATED GFR 2020-05-09 21:38:00 MonsterAndriy pisano [facility] MANUAL DIFFERENTIAL 2020-05-09 21:38:00 MonsterAndriy pisano [facility] ECG 12-LEAD 2020-05-09 21:30:25 MonsterAndriy pisano [facility] MAMMO, screening, digital, 2020-01-15 00:00:00 [facility] D[facility]A 2020-01-15 00:00:00 [place] [facility] MRI, cervical spine, w/o 2020-01-15 00:00:00 [facility] contrast [facility] MAMMO, screening, digital, 2018-09-11 00:00:00 [facility] [place] Colonoscopy<sup>1</sup> 2017-10-09 05:00:00 Thad Simmons Placement of Stent 2011-04-15 00:00:00 [facility] Placement of Stent 2011-03-31 00:00:00 [facility] Hernia Repair [facility] Cholecystectomy [facility] Wrist Arthroscopy/surgery [place] [facility] Procedure on Foot [place] [facility] Cataract (Left) Removal [place] [facility] Procedure Ezekiel Simmons IOL - Cataract extraction Tiny Melgar and insertion of intraocular lens Plan of Care Planned Activity Planned Date Details Comments Source Diagnostic Test 2020-01-15 TSH, serum or plasma [facility] Pending 00:00:00 [code = TSH, serum or Group plasma] Diagnostic Test 2020-01-15 lipid panel, serum [facility] Pending 00:00:00 [code = lipid panel, Group serum] Diagnostic Test 2020-01-15 CMP, serum or plasma [facility] Pending 00:00:00 [code = CMP, serum or Group plasma] Diagnostic Test 2020-01-15 hemoglobin A1c, QN, [place] [facility] Pending 00:00:00 blood [code = Group hemoglobin A1c, QN, blood] Future Scheduled BREAST CANCER [facility] Test SCREENING [code = BREAST CANCER SCREENING] Future Scheduled COLONOSCOPY SCREENING Me [facility] Hospital Test [code = COLONOSCOPY SCREENING] Future Scheduled 65+ [facility] VACCINE (1 of 2 - PPSV23) [code = 65+ PNEUMOCOCCAL VACCINE (1 of 2 - PPSV23)] Future Scheduled COVID-19 VACCINE (1) [facility] Test [code = COVID-19 VACCINE (1)] Future Scheduled Hepatitis C screening [facility] Test (procedure) [code = 750439361] Future Scheduled BREAST CANCER [facility] Test SCREENING [code = BREAST CANCER SCREENING] Future Scheduled COLONOSCOPY SCREENING Me [facility] Hospital Test [code = COLONOSCOPY SCREENING] Future Scheduled [facility]ACCIN[facility] (#1) [code = SHINGLES VACCINES (#1)] Future Scheduled INFLUENZA [facility]ACCINE [facility] [code = INFLUENZA VACCINE] Future Scheduled [facility] (#1) [code = SHINGLES VACCINES (#1)] Future Scheduled IN[facility]UENZA [facility]ACCINE [facility] [code = INFLUENZA VACCINE] Future Scheduled 65+ [facility]OCO[facility] Test VACCINE (1 of 2 - PPSV23) [code = 65+ PNEUMOCOCCAL VACCINE (1 of 2 - PPSV23)] Future Scheduled COVID-19 VACCINE (1) [facility] Test [code = COVID-19 VACCINE (1)] Future Scheduled Hepatitis C screening [facility] Hospital Test (procedure) [code = 385791235] Encounters Start End Encounter Admission Attending Care Care Encounter Source Date/Time Date/Time Type Type Clinicians Facility Department ID 2021-03-08 2021-03-08 Outpatient MHIE MHIE [id number] [facility] 09:30:00 09:30:00 07 marysol RodriguezNucla 2020-12-01 2020-12-01 Ambulatory nullFlavo MNA [id number] Memoria 15:30:00 15:30:00 Pre-Reg r Neurology 08 marysol Crouch Nucl[place] 2020-12-01 2020-12-01 Outpatient MHIE MHIE [id number] Memoria 10:30:00 10:30:00 08 marysol Nucla 2020-12-01 2020-12-01 Outpatient TERRI VillafanaSCHCARTER [id number] 10:30:00 10:30:00 Mitch 08 Jakub 2020-11-25 2020-11-25 Ambulatory nullFlavo MHMG [id number] Memoria 18:40:00 18:40:00 Pre-Reg r Primary 10 [facility] 2020-11-25 2020-11-25 Outpatient MHIE MHIE [id number] Memoria 13:40:00 13:40:00 10 marysol Nucla 2020-11-25 2020-11-25 Outpatient Elhor MHMG MHMG [id number] 13:40:00 13:40:00 Owen Cardenasmichaeltobin 2020-11-17 2020-11-19 Phone nullFlavo MHMG [id number] Memoria 16:49:19 04:59:59 Message r Primary 02 [facility] 2020-11-17 2020-11-18 Outpatient MHMG MHMG [id number] 11:49:19 23:59:59 02 2020-10-30 2020-10-31 Outpatient nullFlavo MHMG [id number] Memoria 16:00:00 04:59:59 r Primary 09 [facility] 2020-10-30 2020-10-30 Outpatient Jonathan, MHMG MHMG [id number] 11:00:00 23:59:59 Lizbeth 09 Jyotindra 2020-10-302020-10-30 Outpatient MHIE MHIE [id number] Memoria 11:00:00 11:00:00 09 marysol Simmons 2020-10-19 2020-10-20 Between nullFlavo MHMG [id number] Memoria 17:50:07 17:50:07 Visit r Primary 03 Rodríguez Simmons [place] 2020-10-19 2020-10-20 Outpatient MHMG MHMG [id number] 12:50:07 12:50:07 03 2020-09-10 2020-09-11 Between nullFlavo MHMG [id number] Memoria 17:49:56 17:49:56 Visit r Primary 02 [facility] 2020-09-10 2020-09-11 Outpatient MHMG MHMG [id number] 12:49:56 12:49:56 02 2020-08-28 2020-08-29 Outpatient nullFlavo MNA [id number] Memoria 19:15:00 04:59:59 r Neurology 04 [facility] 2020-08-28 2020-08-28 [facility] [id number] 14:15:00 23:59:59 Mitch 04 Jakub 2020-08-28 2020-08-28 Outpatient MHIE MHIE [id number] Memoria 14:15:00 14:15:00 04 marysol [place] 2020-08-27 2020-08-28 Outpatient nullFlavo MHMG [id number] Memoria 13:30:00 04:59:59 r Primary 06 Rodríguez Nucla [place] 2020-08-27 2020-08-27 Outpatient Jonathan, MHMG MHMG [id number] 08:30:00 23:59:59 Lizbeth 06 Jyotindra 2020-08-27 2020-08-27 Outpatient MHIE MHIE [id number] Memoria 08:30:00 08:30:00 06 marysol RodriguezTroy 2020-08-21 2020-08-23 Phone nullFlavo MHMG [id number] Memoria 16:55:48 04:59:59 Message r Primary 01 Rodríguez Simmons [place] 2020-08-21 2020-08-22 Outpatient MHMG MHMG [id number] 11:55:48 23:59:59 01 2020-08-19 2020-08-19 Ambulatory nullFlavo MHMG [id number] Memoria 20:45:00 20:45:00 Pre-Reg r Primary 05 marysol Simmons [place] 2020-08-19 2020-08-19 Outpatient MHIE MHIE [id number] Memoria 15:45:00 15:45:00 05 marysol [place] 2020-08-19 2020-08-19 Outpatient Jonathan, MHMG MHMG [id number] 15:45:00 15:45:00 Lizbeth 05 Jodi 2020-08-10 2020-08-12 Phone nullFlavo MHMG [id number] Memoria 14:06:38 04:59:59 Message r Primary 00 marysol Arreguin [place] 2020-08-10 2020-08-11 Outpatient MHMG MHMG [id number] 09:06:38 23:59:59 00 2020-07-22 2020-07-23 Outpatient nullFlavo MHMG [id number] Memoria 13:00:00 04:59:59 r Primary 03 marysol Simmons [place] 2020-07-22 2020-07-22 Outpatient Jonathan, MHMG MHMG [id number] 08:00:00 23:59:59 Lizbeth 03 Jodi 2020-07-22 2020-07-22 Outpatient MHIE MHIE [id number] Memoria 08:00:00 08:00:00 03 marysol [place] 2020-07-17 2020-07-18 Outpatient nullFlavo MNA [id number] Memoria 20:00:00 04:59:59 r Neurology 02 [facility] 2020-07-17 2020-07-17 Outpatient MILLI VillafanaSCHCARTER MISCHER [id number] 15:00:00 23:59:59 Mitch Call 2020-07-17 2020-07-17 Outpatient MHIE MHIE [id number] Memoria 15:00:00 15:00:00 02 marysol Simmons 2020-05-09 2020-05-10 Emergency Andriy Hook 1.2.840.1 [id number] Methodi 15:26:00 14:30:[address] 3.430.2.7 Hospit a .3.554083 l .8 2020-05-09 2020-05-10 [facility] 1.2.840.1 10 [id number] Methodi 15:26:00 14:30:[address] 3.430.2.7 Hospit a .3.063809 l .8 2020-05-05 2020-05-05 Travel 1.2.840.1 1.2.374.394 [id number] Methodi 00:00:00 00:00:[address] 3.430.2.7 0.2.7.3.698 Ho spita .3.111807 084.8 l .8 2020-05-05 2020-05-05 Travel 1.2.840.1 1.2.388.324 [id number] Methodi 00:00:00 00:00:[address] 3.430.2.7 0.2.7.3.698 Ho spita .3.836643 084.8 l .8 2020-01-15 2020-01-15 Eddie [facility] [place] - [id number] [place] 00:00:00 00:00:00 Yessi England MD: [address] [place] [address] [address], [place] [address] , Ph. 2019-04-24 2019-04-24 Eddie [facility] [place] - [id number] [place] 00:00:00 00:00:00 Yessi England MD: [address] [place] [address] [address], [place] [address] , Ph. 2019-04-09 2019-04-09 Chelly MUKHERJEE [place] - [id number] [place] 00:00:00 00:00:00 Anna Maria MD: [address], [facility] [place], [place] [facility] [address] [facility] , Ph. h ([phone]) Program 2018-09-11 2018-09-11 Eddie [facility] [place] - [id number] [place] 00:00:00 00:00:00 Yessi England Medical MD: [address] [facility] [address], [place] [address] , Ph. 2018-06-25 2018-06-25 Eddie [facility] [place] - [id number] [place] 00:00:00 00:00:00 Yessi England Medical MD: [address] [facility] [address], [place] [address] , Ph. 2018-06-14 2018-06-14 Eddie [facility] [place] - [id number] [place] 00:00:00 00:00:00 Yessi England MD: [address] [facility] [address], [place] [address] , Ph. 2016-07-21 2016-07-21 [facility] [id number] Memoria 10:30:00 10:30:00 01 marysol Simmons 2015-07-13 2015-07-13 Outpatient [facility] [id number] Memoria 09:15:00 09:15:00 00 marysol Simmons Results Test Description Test Time Test Comments Results Result Comments Source ECG 12 lead 2020-05-11 02:53:13 Test Item Value Reference Range Interpretation Comme nts Ventricular rate (test code = 253) Atrial rate (test code = 255) SD interval (test code = 266) QRSD interval (test code = 260) QT interval (test code = 264) QTC interval (test code = 265) P axis 1 (test code = 267) QRS axis 1 (test code = 268) T wave axis (test code = 270) EKG impression (test code = 273) Sinus bradycardia-Moderate voltage criteria for LVH, may be normal variant-Borderline ECG-In automated comparison with ECG of 06-OCT-2017 16:51,-premature ventricular complexes are no longer present-Minimal criteria for Anterior infarct are no longer present-QT has shortened- STUS [facility] 12 [id number] 02:53:13 Test Item Value Reference Range Interpretation Comments Ventricular rate (test code = 253) Atrial rate (test code = 255) SD interval (test code = 266) QRSD interval (test code = 260) QT interval (test code = 264) QTC interval (test code = 265) P axis 1 (test code = 267) QRS axis 1 (test code = 268) T wave axis (test code = 270) EKG impression (test code = 273) [facility] carotid [id number] 02:26:00 Vascular Ultrasound Laboratory Carotid Artery Duplex Report [address] [place] [address] For chemistry quality control technician purposes, the categorization of the degree of the stenosis of this exam is based on criteria described in the IAC carotid stenosis grading white paper( www.intersocietal.org/Vascular) and Alejandro, ERodrigo., Isaiah, CManpreetB., et al. Carotid artery stenosis: desouza-scale and Doppler US diagnosis--Society of Radiologists in Ultrasound Consensus Conference. Radiology. 2003 Jan; 229(2):340-6. Pat.Name: OLIVER AMBRIZ Pat.ID: [id number] .Date: 05/10/2020 Refer.MD: MIRNA MEI DO Exam Time: 2:07:00 PM Study Type:Carotid Weight: 162lb Age: 7 1945,74Y Sex: FEMALE Sonogrphr: Rita Dorantes RVT Pat. Stat.:Inpatient Room: [place] [address] Tape Vol: RF, CPT - 4: 25641 Echo Event ID:[id number] Order ID: [id number] Reason for Study:Evaluation for possible carotid artery [...] 1.24 Signed 05/10/2020 08:26 PMJohnnie Valdivia MD, [facility]IIntwal[facility], Radiology Results In - 05/10/2020 8:26 PM CST Vascular Ultrasound Laboratory Carotid Artery Duplex Report [address] [place] [address] For chemistry quality control technician purposes, the categorization of the degree of the stenosis of this exam is based on criteria described in the IAC carotid stenosis grading white paper( www.intersocietal.org/Vascular) and Alejandro, ERodrigo., Isaiah, C.B., et al. Carotid artery stenosis: desouza-scale and Doppler US diagnosis--Society of Radiologists in Ultrasound Consensus Conference. Radiology. 2003 Nov; 229(2):340-6. Pat.Name: OLIVER AMBRIZ.ID: [id number] St.Date: 05/10/2020 Refer.MD: MIRNA MEI DO Exam Time: 2:07:00PM Study Type:Carotid Weight: 162lb Age: [birth year]74Y Sex: FEMALE Sonogrphr: Rita Dorantes RVT Pat. Stat.:Inpatient Room: [place] [address] Tape Vol: ANDERS, [facility] - 4: 08018 Echo Event ID:[id number] Order ID: [id number] Reason for Study:Evaluation for possible carotid artery [...] Ratio ICA/CCA PSV 1.24 Signed 05/10/2020 08:26 Emmett Valdivia MD, [facility]ISt. [facility] carotid [id number] 02:26:00 Vascular Ultrasound Laboratory Carotid Artery Duplex Report [address] [address] For chemistry quality control technician purposes, the categorization of the degree of the stenosis of this exam is based on criteria described in the IAC carotid stenosis grading white paper( carolyn wkeiryocietal.org/Vascular) and Marcella Allen., Seth Colon., et al. Carotid artery stenosis: desouza-scale and Doppler US diagnosis--Society of Radiologists in Ultrasound Consensus Conference. Radiology. 2003 Nov; 229(2):340-6. Pat.Name: OLIVER AMBRIZ Pat.ID: [id number] .Date: 05/10/2020 Refer.MD: MIRNA MEI DO Exam Time: 2:07:00 PM Study Type:Carotid Weight: 162lb Age: 7 1945,74Y Sex: FEMALE Sonogrphr: Rita Dorantes RVT Pat. Stat.:Inpatient Room: [address] Vol: , CPT - 4: 31437 Echo Event ID:[id number] Order ID: [id number] Reason for Study:Evaluation for possible carotid artery [...] Vascular Ultrasound Laboratory Carotid Artery Duplex Report [address] [place] [address], [place] [address] For chemistry quality control technician purposes, the categorization of the degree of the stenosis of this exam is based on criteria described in the IAC carotid stenosis grading white paper( www.intersocietal.org/Vascular) and Marcella Allen., Seth Colon., et al. Carotid artery stenosis: desouza-scale and Doppler US diagnosis--Society of Radiologists in Ultrasound Consensus Conference. Radiology. 2003 Nov; 229(2):340-6. Pat.Name: OLIVER AMBRIZ [facility].ID: [id number] St.Date: 05/10/2020 Refer.MD: MIRNA MEI DO Exam Time: 2:07:00PM Study Type:Carotid Weight: 162lb Age: [birth year]74Y Sex: FEMALE Sonogrphr: Rita Dorantes RVT Pat. Stat.:Inpatient Room: [place] [address] Tape Vol: RF, CPT - 4: 29531 Echo Event ID:[id number] Order ID: [id number] Reason for Study:Evaluation for possible carotid artery [...] 1.24 Signed 05/10/2020 08:26 PMJohnnie Valdivia MD, [facility]ansthor[facility] Echocardiogram Complete, (w Contrast, Strain and 3D if needed)2020-05-10 17:42:00 Echocardiography Report [address]Name: OLIVER AMBRIZ [facility].ID: [id number] .Date: 05/10/2020 Refer.MD: MIRNA MEI DO Exam Time: 7:31:00 AM Study Type:Routine Echo Height: 62in Weight: 162lb BSA: 1.75 m2 Age: [birth year]74Y Sex: FEMALE BP: 132/58 HR: 51 bpm Sonogrphr: FORREST Lindsey Pat. Stat.:[place] [facility] [place] Status:Final Echo Event ID:[id number] Order ID: [id number] Reason for Study:stroke Procedures: 2D Echo, Colorflow [...] mean RAP of 5 mmHg. ----MEASUREMENTS: 2DParasternalLong [place] Ao An 1.7 cm LVPWd 0.9 cm [...] LVOT CI 1.2 l/m/m2 Signed 05/10/2020 11:42 AMTaylor Scott MDInterface, Radiology Results In - 05/10/2020 11:43 AM CST Echocardiography Report [address] [place] [id number] Pat.Name: OLIVER AMBRIZ [facility].ID: [id number] St.Date: 05/10/2020 Refer.MD: MIRNA MEI DO Exam Time: 7:31:00 AM Study Type:Routine Echo Height: 62in Weight: 162lb BSA: 1.75 m2 Age: 7 1945,74Y Sex: FEMALE BP: 132/58 HR: 51 bpm Sonogrphr: FORREST Lindsey Pat. Stat.:[place] [facility] [place] Status:Final Echo Event ID:[id number] Order ID: [id number] Reason for Mehrdad dy:stroke Procedures: 2D Echo, [...] RAP of 5 mmHg. MEASUREMENTS: 2DParasternal Long [place] Ao An 1.7 cm LVPWd 0.9 cm [...] CI 1.2 l/m/m2 Signed 05/10/2020 11:[address] [facility], [facility]an[facility]horacic Echocardi[facility] Complete, (w Contrast, Strain and 3D if needed)2020-05-10 17:42:00 Echocardiography Report [address]Name: OLIVER AMBRIZ [place].ID: [id number] .Date: 05/10/2020 Refer.MD: MIRNA MEI DO Exam Time: 7:31:00 AM Study Type:Routine Echo Height: 62in Weight: 162lb BSA: 1.75 m2 Age: 7 1945,74Y Sex: FEMALE BP: 132/58 HR: 51 bpm Sonogrphr: Bhargavi Riley, [facility] Pat. Stat.:Inpatient Room: M659 Study Status:Final Echo Event ID:[id number] Order ID: [id number] Reason for Study:stroke Procedures: 2D Echo, Colorflow [...] mean RAP of 5 mmHg. ----MEASUREMENTS: 2DParasternalLong [place] Ao An 1.7 cm LVPWd 0.9 cm [...] LVOT CI 1.2 l/m/m2 Signed 05/10/2020 11:42 AMMoautumn Scott MDInterface, Radiology Results In - 05/10/2020 11:43 AM CST Echocardiography Report [address] [place] [address] Pat.Name: OLIVER AMBRIZ Pat.ID: [id number] .Date: 05/10/2020 Refer.MD: MIRNA MEI DO Exam Time: 7:31:00 AM Study Type:Routine Echo Height: 62in Weight: 162lb BSA: 1.75 m2 Age: 7 1945,74Y Sex: FEMALE BP: 132/58 HR: 51 bpm Sonogrphr: FORREST Lindsey Pat. Stat.:[place] [facility] [place] Status:Final Echo Event ID:[id number] Order ID: [id number] Reason for Mehrdad dy:stroke Procedures: 2D Echo, [...] RAP of 5 mmHg. MEASUREMENTS: 2DParasternal Long [place] Ao An 1.7 cm LVPWd 0.9 cm [...] LVOT CI 1.2 l/m/m2 Signed 05/10/2020 11:42 AMMolecom health - [facility] hospitalsun[facility] Brain Wo Cucwefxu2402-79-49 16:24:44EXAMINATION: MRI BRAIN WO CONTRAST CLINICAL HISTORY: [...] acute intracranial abnormality. [id number] Interface, Radiology Results [facility] 05/10/2020 10:27 AM CST EXAMINATION: MRI BRAIN [...] and soft tissues are unremarkable.IMPRESSION:No acute intracranial abnormality.[id number]_PS02[facility] Brain Wo Mykyeael8578-34-24 16:24:44EXAMINATION: MRI BRAIN WO CONTRAST CLINICAL HISTORY: [...] unremarkable.IMPRESSION:No acute intracranial abnormality.[id number] HospitalUrinalysis, automated with kiyqyqgwqz4614-47-07 06:01:07 Test Item Value Reference Range Interpretation Comments Color, UA (test code = Straw 5778-6) Appearance, UA (test Clear code = 5767-9) Specific gravity, UA 1.001-1.035 H (test code = 5811-5) pH, UA (test code = 5.0-8.5 5803-2) Protein, UA (test code = Negative Negative 58680-4) Glucose, UA (test code = Negative Negative 69146-1) Ketones, UA (test code = Negative Negative 2514-8) Bilirubin, UA (test code Negative Negative = 5770-3) Blood, UA (test code = Negative Negative 5794-3) Nitrite, UA (test code = Negative Negative 5802-4) Urobilinogen, UA (test <2.0 A code = 40746-1) Leukocyte esterase, UA Moderate Negative A (test code = 5799-2) Epithelial cells, UA See_Comment [Autom ated message] (test code = 5787-7) The sys tem which generated this result transmit klaudia reference range : /HPF. The refer ence range was not u sed to interpret th is result as normal/abnormal . WBC, UA (test code = See_Comment H [Autom ated message] 5821-4) The system [employer] generated this result transmit klaudia reference range : 0 - 4 /HPF. The reference range was not used to interpret this result as normal/abnormal . RBC, UA (test code = See_Comment [Autom ated message] 03792-0) The system [employer] generated this result transmit klaudia reference range : 0 - 5 /HPF. The reference range was not used to interpret this result as normal/abnormal . Bacteria, UA (test code Few None seen = 27794-1) Yeast, UA (test code = None seen 29989-1) Yeast with pseudohyphae, None seen UA (test code = 37487-6) Lab Interpretation (test Abnormal code = 19505-5) [facility]inal[facility], automated with [id number] 06:01:07 Test Item Value Reference Range Interpretation Comments Color, UA (test code = Straw 5778-6) Appearance, UA (test Clear code = 5767-9) Specific gravity, UA 1.001-1.035 H (test code = 5811-5) pH, UA (test code = 5.0-8.5 5803-2) Protein, UA (test code = Negative Negative 81481-6) Glucose, UA (test code = Negative Negative 10132-5) Ketones, UA (test code = Negative Negative 2514-8) Bilirubin, UA (test code Negative Negative = 5770-3) Blood, UA (test code = Negative Negative 5794-3) Nitrite, UA (test code = Negative Negative 5802-4) Urobilinogen, UA (test <2.0 A code = 71760-1) Leukocyte esterase, UA Moderate Negative A (test code = 5799-2) Epithelial cells, UA See_Comment [Autom ated message] (test code = 5787-7) The sys tem which generated this result transmit klaudia reference range : /HPF. The refer ence range was not u sed to interpret th is result as normal/abnormal . WBC, UA (test code = See_Comment H [Autom ated message] 5821-4) The system [employer] generated this result transmit klaudia reference range : 0 - 4 /HPF. The reference range was not used to interpret this result as normal/abnormal . RBC, UA (test code = See_Comment [Autom ated message] 21655-5) The system [employer] generated this result transmit klaudia reference range : 0 - 5 /HPF. The reference range was not used to interpret this result as normal/abnormal . Bacteria, UA (test code Few None seen = 38805-6) Yeast, UA (test code = None seen 96710-2) Yeast with pseudohyphae, None seen UA (test code = 09851-6) Lab Interpretation (test Abnormal code = 27074-9) [facility]CT[facility] Neck W Wo [id number] 23:35:03EXAM: CT ANGIOGRAM NECK W WO CONTRAST [...] seen at th e aortic arch. A ffyo-ah-tgawwsil amount of calcifications and plaque seen at [...] sac stenosis or foraminal narrowing. IMPRESSION: 1.A fbkv-fh-amuitmyr amount of calcifications and plaque seen at [...] of calcifications seen at the aortic arch.A vnoo-ny-njxokxpa amount of calcifications and plaque seen at [...] acute thecal sac stenosis or foraminal narrowing.IMPRESSION:1.A wszf-wq-ebhrqtjq amount of calcifications and plaque seen at the bilateral carotid bifurcations and origins of the internal carotid arteries with less than 10% % stenosis by NASCET criteria.2.Bilateral vertebral arteries are patent throughout.3.Moderate amount of irregular plaque and mild amountof calcifications seen at the aortic arch.4.Additional chronic findings as detailed above.[id number]_PS01[facility] HospitalCTA Neck W Wo Contrast 2020-05-09 23:35:03EXAM: CT ANGIOGRAM NECK W WO CONTRAST [...] amount of calcifications seen at the aortic arch. A kwgb-mr-ibwlhmye amount of calcifications and plaque seen at [...] To moderate disc height loss, history, and chron ic severe foraminal narrowing is seen at the C5-C6 level. It is important to note that the current CTA of the neck is not tailored to evaluate the extent of thecal sac stenosis and foraminal narrowing.Taking this into consideration, no acute thecal sac stenosis or foraminal narrowing. IMPRESSION: 1.A pxmh-pq-lwvxkgxg amount of calcifications and plaque seen at the bilateral carotid bifurcations andorigins of the internal carotid arteries with less than 10% % stenosis by NASCET criteria.2.Bilateral vertebral arteries are patent throughout.3.Moderate amount of irregular plaque and mild amount of ca lcifications seen at the aortic arch.4.Additional chronic findings [...] of calcifications seen at the aortic arch.A ixpj-vz-ebkbhutz amount of calcifications and plaque seen at the bila teral carotid bifurcations and origins of the internal [...] acute thecal sac stenosis or foraminal narrowing.IMPRESSION:1.A osgw-rv-mvkvceba amount of calcifications and plaque seen at [...] aneurysmal dilatation or vascular malformation of the [place]. The major dural sinuses are opacified normally. IMPRESSION: 1.No hemodynamically significant narrowing of the [place] vessels.[id number]_PS01 Interface, Radiology Results 05/09/2020 [...] aneurysmal dilatation or vascular malformation of the [place].The major dural sinuses are opacified normally.IMPRESSION:1.No hemodynamically significant narrowing of the [place] vessels.[id number]_[id number] HospitalCTA Head W Wo [id number] 23:31:28EXAM: CT ANGIOGRAM HEAD W WO CONTRAST CLINICAL HISTORY: Stroke TIA assess extracranial arteries TECHNIQUE: Imaging of the intracranial circulation was obtained from the skull base to the vertex during the arterial phase of enhancement. Postprocessing was performed with MIP multiplanar and 3D reconstr ucted images. CT scans are performed using radiation [...] aneurysmal dilatation or vascular malformation of the [place] [place]. The major dural sinuses are opacified normally. IMPRESSION: 1.No hemodynamically significant narrowing of the [place] vessels.[id number] Interface, Radiology Results 05/09/2020 [...] aneurysmal dilatation or vascular malformation of the [place].The major dural sinuses are opacified normally.IMPRESSION:1.No hemodynamically significant narrowing of the [place] vessels.[id number] [place] [facility] Contrast 2020-05-09 22:23:40Study: CT STROKE BRAIN WO CONTRAST History:Transient [...] abnormality. Dr. Hook notified 4:23 PM 05/09/2020 [facility] [id number] Interface, Radiology Results [facility] - 05/09/2020 4:26 PM CST Study: CT [...] intracranial abnormality. Dr. Hook notified 4:23 PM 05/09/2020[facility]-[id number] HospitalCT Stroke Brain Wo [id number] 22:23:40Study: CT STROKE BRAIN WO CONTRAST History:Transient [...] abnormality. Dr. Hook notified 4:23 PM 05/09/2020 [facility] [id number] Interface, Radiology Results Incoming - 05/09/2020 4:26 [...] intracranial abnormality. Dr. Hook notified 4:23 PM 05/09/2020[id number] [facility] Auto Differential panel - [id number] 09:31:00 Test Item Value Reference Range Interpretation Comments white blood count (test code = 5.3 K/uL 4.0-11.5 white blood count) red blood count (test code = red 4.96 M/uL 3.80-5.20 blood count) hemoglobin (test code = 15.0 g/dL 10.5-15.7 hemoglobin) hematocrit (test code = 44.3 % 34.0-50.0 hematocrit) Erythrocyte mean corpuscular 89.3 fL 86-100 volume [Entitic volume] (test code = 21326-6) mean corpuscular hemoglobin (test 30.2 pg 26.2-33.4 [...] 44.4-80.1 leukocytes in Blood (test code = 28339-0) Granulocytes Immature [#/volume] 0.0 K/uL 0.0-0.03 H in Blood (test code = 48138-3) lymphocyte% (test code = 33.0 % 10.0-50.0 lymphocyte%) mono % (test code = mono %) 10.2 % 3.6-12.0 eos % (test code = eos %) 1.7 % 0.0-5.4 Basophils/100 leukocytes in 0.8 % 0.1-1.2 Unspecified specimen (test code = 28725-2) Neutrophils.band form [#/volume] 2.86 K/uL 1.56-6.13 in Blood (test code = 80781-8) Lymphocytes [#/volume] in 1.8 K/uL 1.18-3.74 Unspecified specimen by Automated count (test code = 69953-6) mono # (test code = mono #) 0.54 K/uL 0.24-0.86 eos # (test code = eos #) 0.09 K/uL 0.04-0.36 basophil # (test code = basophil 0.04 K/uL 0.01-0.08 #) NRBC% (test code = NRBC%) 0 /100 WBC 0-0.2 NRBC# (test code = NRBC#) 0 K/uL [facility] - Serum [...] Serum or Plasma (test code = 6768-6) [facility] - Serum or [id number] 09:31:00 Test Item Value Reference Range Interpretation Comments cholesterol level (test code = 188 mg/dL 150-200 cholesterol level) triglycerides level (test code = 173 mg/dL <150 H triglycerides level) HDL cholesterol (test code = HDL 46 mg/dL >65 L cholesterol) LDL cholesterol direct (test code = 120 mg/dL <100 H LDL cholesterol direct) cholesterol risk ratio (test code = 4.086 cholesterol risk ratio) [facility] Auto Differential panel - [id number] 09:31:00 Test Item Value Reference Range Interpretation Comments white blood count (test code = 5.3 K/uL 4.0-11.5 white blood count) red blood count (test code = red 4.96 M/uL 3.80-5.20 blood count) hemoglobin (test code = 15.0 g/dL 10.5-15.7 hemoglobin) hematocrit (test code = 44.3 % 34.0-50.0 hematocrit) Erythrocyte mean corpuscular 89.3 fL 86-100 volume [Entitic volume] (test code = 53587-7) mean corpuscular hemoglobin (test 30.2 pg 26.2-33.4 [...] 44.4-80.1 leukocytes in Blood (test code = 73672-4) Granulocytes Immature [#/volume] 0.0 K/uL 0.0-0.03 H in Blood (test code = 16965-6) lymphocyte% (test code = 33.0 % 10.0-50.0 lymphocyte%) mono % (test code = mono %) 10.2 % 3.6-12.0 eos % (test code = eos %) 1.7 % 0.0-5.4 Basophils/100 leukocytes in 0.8 % 0.1-1.2 Unspecified specimen (test code = 02784-0) Neutrophils.band form [#/volume] 2.86 K/uL 1.56-6.13 in Blood (test code = 50693-8) Lymphocytes [#/volume] in 1.8 K/uL 1.18-3.74 Unspecified specimen by Automated count (test code = 46513-9) mono # (test code = mono #) 0.54 K/uL 0.24-0.86 eos # (test code = eos #) 0.09 K/uL 0.04-0.36 basophil # (test code = basophil 0.04 K/uL 0.01-0.08 #) NRBC% (test code = NRBC%) 0 /100 WBC 0-0.2 NRBC# (test code = NRBC#) 0 K/uL [facility] 1999 panel - Serum or Plasma 2019-04-04 09:31:00 [...] Serum or Plasma (test code = 6768-6) [facility] - Serum or [id number] 09:31:00 Test Item Value Reference Range Interpretation Comments cholesterol level (test code = 188 mg/dL 150-200 cholesterol level) triglycerides level (test code = 173 mg/dL <150 H triglycerides level) HDL cholesterol (test code = HDL 46 mg/dL >65 L cholesterol) LDL cholesterol direct (test code = 120 mg/dL <100 H LDL cholesterol direct) cholesterol risk ratio (test code = 4.086 cholesterol risk ratio) [facility] [id number] 00:20:00 Test Item Value Reference Range Interpretation [...] validated by th e MDRD study and thierry d be interpretedwith caution.eGFR Re sult Interpretation: eGFR > or = 60 is in t he Normal RangeeGF R < 60 may mean kidney diseaseeGFR < 1 5 may mean kidney failureRange s recommended by the National Kidney Foundation,http ://nkd ep.nih.gov Lipid [id number] 00:20:00 Test Item Value Reference Range Interpretation [...] (test code = LDLC) DISEASEPu blished by [place] Heart AssociationAnal yte Optim al Boderline Increased RiskC HOL <200 200-239 >240TRI G <150 150-199 >200HDL Male: >60 <40HDL Female: >60 <50 LDL < 100 130-15 9 >160 LDL NEAR OPTIMAL IS 100- 129 VLDL (test code = 43 mg/dL 5-40 H VLDL) LDL/HDL (test code = 6 LDLPHDL) CBC with [id number] 23:58:00 Test Item Value Reference Range Interpretation [...] code = ALYMPH) 1.7 K/cumm 0.5-4.6 N Petroleum Abs (test code = AMONO) 0.3 K/cumm 0.0-1.2 N Eos Abs (test code = AEOS) 0.09 K/cumm 0.00-0.74 N Baso Abs (test code = ABASO) 0.0 K/cumm 0.00-0.21 N Comprehensive Metabolic [id number] 00:00:00 Test Item Value Reference Range Interpretation [...] the National Kidney Foundation,http ://nkd ep.nih.gov Lipid [id number] 00:00:00 Test Item Value Reference Range Interpretation Comments Cholesterol (test 213 mg/dL 0-200 H code = CHOL) Triglycerides (test 148 mg/dL 9-200 N code = TRIG) HDL (test code = 43 mg/dL 50-60 L HDL) Chol/HDL (test code 5.0 Ratio 0.0-4.4 H = CHOLPHDL) LDL, Calculated 140 0-130 H (NOTE)RISK O F HEART (test code = LDLC) DISEASEPu blished by [place] Heart AssociationAnal yte Optim al Boderline Increased RiskC HOL <200 200-239 >240TRI G <150 150-199 >200HDL Male: >60 <40HDL Female: >60 <50 LDL < 100 130-15 9 >160 LDL NEAR OPTIMAL IS 100- 129 VLDL (test code = 30 mg/dL 5-40 N VLDL) LDL/HDL (test code = 3 LDLPHDL) CBC with [id number] 23:15:00 Test Item Value Reference Range Interpretation [...] code = ALYMPH) 1.2 K/cumm 0.5-4.6 N Petroleum Abs (test code = AMONO) 0.5 K/cumm 0.0-1.2 N Eos Abs (test code = AEOS) 0.10 K/cumm 0.00-0.74 N Baso Abs (test code = ABASO) 0.0 K/cumm 0.00-0.21 N
[2020-12-07] MEDS ORDERED: ONDANSETRON 4 MG/2 ML VIAL ONE (16:55)
[2020-12-07 16:58] LABS: Absolute Lymphocytes (CBC) 2.4 K/uL (0.7-4.9); Basophils % 0.5 % (0-1.3); Hematocrit 41.3 % (36.0-45.0); Lymphocytes % 35.1 % (15.3-44.8); MPV 6.6 fL (7.6-11.3); RBC Red Blood Cell Count 4.56 M/uL (3.86-4.86)
[2020-12-07] MEDS ORDERED: NA CHLORIDE 0.9% 1,000 ML ONE (17:07)
[2020-12-07 17:14] LABS: Albumin 3.5 g/dL (3.4-5.0); Bilirubin Direct 0.2 mg/dL (0-0.2); Bilirubin Total 0.7 mg/dL (0.2-1.0); Potassium 3.8 mmol/L (3.5-5.1); Protein, Total 7.9 g/dL (6.4-8.2)
--- NOTE | 2020-12-07 17:32 | RAD REPORT ---
EXAM DESCRIPTION: RAD - Chest Single View - 12/07/2020 5:18 pm CLINICAL HISTORY: COUGH COMPARISON: November 26, 2020 TECHNIQUE: AP portable chest image was obtained 12/07/2020 5:18 pm . FINDINGS: Lung volumes are low. No acute lung parenchymal process identifiable. Heart and vasculatur e are normal. No measurable pleural effusion and no pneumothorax. No acute bony abnormality seen. No acute aortic findings suspected. IMPRESSION: No acute cardiopulmonary process.
--- NOTE | 2020-12-07 18:12 | RAD REPORT ---
EXAM DESCRIPTION: CT - Head Brain Wo Cont - 12/07/2020 6:06 pm CLINICAL HISTORY: Headache;Dizziness COMPARISON: Head Brain Wo Cont dated 11/26/2020 TECHNIQUE: Axial 5 mm thick images of the head were obtained without IV contrast. All CT scans are performed using dose optimization technique as appropriate and may include automated exposure control or mA/KV adjustment according to patient size. FINDINGS: No intracranial hemorrhage, mass, edema or shift of mid-line structures. No acute infarcti on changes seen. No abnormal extra-axial fluid collections. Ventricles are normal. No significant at rophy or chronic ischemic change. Mastoid air cells are under developed. No acute findings seen. Visualized portions of the paranasal s inuses are clear. No acute bony findings. IMPRESSION: Negative non-contrast CT head examination for acute finding No significant change from short interval November 26 study.
--- NOTE | 2020-12-07 18:17 | RAD REPORT ---
EXAM DESCRIPTION: CT - Abdomen Pelvis W Contrast - 12/07/2020 6:09 pm CLINICAL HISTORY: vomiting COMPARISON: No comparisons TECHNIQUE: Biphasic, helical CT imaging of the abdomen and pelvis was performed following 100 ml non -ionic IV contrast. No oral contrast was administered. All CT scans are performed using dose optimization technique as appropriate and may include automated exposure control or mA/KV adjustment according to patient size. FINDINGS: No suspicious findings in the lung bases. The liver, spleen, and pancreas show no suspicious findings. Liver has a subtle nodular capsule conto ur. Cirrhosis or diffuse hepatic parenchymal disease cannot be excluded. No portal vein abnormality. Gallbladder is absent. No biliary tree dilatation. Symmetric renal function is seen with no hydronephrosis or suspicious renal mass. No pyelonephritis c onfirmed and no acute parenchymal process. No bladder abnormalities. No adrenal abnormalities. Uterus and ovaries show no suspicious findings. No dilated bowel loops or bowel wall thickening. Patient has prominent diverticulosis in the redundan t sigmoid colon. No diverticulitis or acute colon process identifiable. No free air, free fluid or in flammatory stranding. No hernia, mass or bulky lymphadenopathy. Disc and bone degenerative changes are present with no acute finding. IMPRESSION: Contrast enhanced CT abdomen and pelvis showing no acute or emergent finding. Nonacute findings detailed in the body of the report.
[2020-12-07 18:56] LABS: Urine Blood Negative (Negative); Urine Glucose Negative (Negative); Urine Protein Negative (Negative); Urine Specific Gravity 1.015 (1.005-1.030)
[2020-12-07] MEDS ORDERED: MECLIZINE HCL 12.5 MG TAB ONE (19:03)
[2020-12-07 20:20] LABS: Urine Bacteria >50 /HPF (<20); Urine RBC NONE SEEN /HPF (NONE SEEN)
--- NOTE | 2020-12-07 23:15 | ER ---
Nurse's Notes [facility] Name: Yodit Alarcon Age: 75 yrs Sex: Female : 1945 Arrival Date: 12/07/2020 Time: 16:12 Bed 18 Private MD: Diagnosis: UTI/ Urinary tract infection, site not specified;Headache Presentation: 12/07 16:15 Chief complaint: Patient states: Nausea, Vomiting, diarrhea, head aches starting this kg am 0700. Coronavirus screen: Vaccine status: Patient reports receiving the 2nd dose of the covid vaccine. Date June 13, 2020 oohilove Patient reports receiving the 1st dose of the Covid vaccine. Date May 23, 2020 oohilove. Ebola Screen: Patient negative for fever greater than or equal to 101.5 degrees Fahrenheit, and additional compatible Ebola Virus Disease symptoms Patient denies exposure to infectious person. Patient denies travel to an Ebola-affected area in the 21 days before illness onset. Initial Sepsis Screen: Does the patient meet any 2 criteria? No. Patient's initial sepsis screen is negative. Does the patient have a suspected source of infection? No. Patient's initial sepsis screen is negative. Risk Assessment: Do you want to hurt yourself or someone else? Patient reports no desire to harm self or others. Onset of symptoms was December 07, 2020 at 07:00. 16:15 Method Of Arrival: Wheelchair kg 16:15 Acuity: EDVIN 3 kg Triage Assessment: 16:22 General: Appears uncomfortable, Behavior is calm, cooperative. Pain: Complains of pain kg in Head Pain currently is 6 out of 10 on a pain scale. at worst was 6 out of 10 on a pain scale. level that patient reports is acceptable is 3 out of 10 on a pain scale. Quality of pain is described as aching. Neuro: Reports dizziness, headache. GI: Reports diarrhea, nausea, vomiting. Historical: - Allergies: 16:17 codeine sulfate; kg - Home Meds: 16:17 clopidogrel 75 mg oral tab 1 tab once daily [Active]; metoprolol tartrate 25 mg Oral kg tab 1 tab 2 times per day [Active]; famotidine 20 mg Oral tab 1 tab once daily [Active]; levothyroxine 50 mcg cap 1 cap once daily [Active]; atorvastatin 40 mg oral tab 1 tab once daily [Active]; alendronate 70 mg oral tab 1 tab daily [Active]; - PMHx: 16:17 Thyroid disfunction; Hypertensive disorder; Hypercholesterolemia; acid reflux; kg - PSHx: 16:17 Cardiac stent; Cholecystectomy; Ligation of fallopian tube; Jose wrist sx; kg - Immunization history:: Adult Immunizations up to date, Client reports receiving the 2nd dose of the Covid vaccine, Date received: June 13, 2020 o[place]ove Client reports receiving the 1st dose of the Covid vaccine, May 23, 2020 oohilove. - Social history:: Smoking status: Patient denies any tobacco usage or history of. - Family history:: not pertinent. - Hospitalizations: : The patient was recently seen at [facility]. Screenin:23 Abuse screen: Denies threats or abuse. Denies injuries from another. Nutritional kg screening: No deficits noted. Tuberculosis screening: No symptoms or risk factors identified. Fall Risk None identified. Assessment: 16:30 General: SEE TRIAGE NOTE. bp 17:30 GI: Abdomen is non-distended, obese. bp 18:30 Reassessment: No changes from previously documented assessment. Patient and/or family bp updated on plan of care and expected duration. Pain level reassessed. PT RETURNED FROM CT. 19:36 Reassessment: patient updated with information, pending results, patient doesn't have lh3 any complaints at this time. Patient denies pain at this time. Vital Signs: 16:15 BP 157 / 83; Pulse 80; Resp 20; Temp 97.8(O); Pulse Ox 99% on R/A; Weight 73.48 kg (R); kg Height 5 ft. 2 in. (157.48 cm) (R); Pain 7/10; 17:30 BP 121 / 66; Pulse 75; Resp 16; Pulse Ox 99% ; bp 18:30 BP 115 / 67; Pulse 87; Resp 16; Pulse Ox 97% ; bp 19:38 BP 124 / 63; Pulse 70; Resp 18; Pulse Ox 95% on R/A; lh3 16:15 Body Mass Index 29.63 (73.48 kg, 157.48 cm) kg ED Course: 16:12 Patient arrived in ED. as 16:17 Triage completed. kg 16:23 Patient has correct armband on for positive identification. kg 16:25 Chong Mcmullen MD is Attending Physician. rn 16:26 Kirill Fay, RN is Primary Nurse. bp 16:45 Inserted saline lock: 20 gauge in right antecubital area, using aseptic technique. bp Blood collected. 17:18 XRAY Chest (1 view) In Process Unspecified. EDMS 18:05 CT Head Brain wo Cont In Process Unspecified. EDMS 18:08 CT Abd/Pelvis - IV Contrast Only In Process Unspecified. EDMS 18:57 Urine Microscopic Only Sent. bp 23:40 No provider procedures requiring assistance completed. IV discontinued, bleeding lh3 controlled. 23:41 Arm band placed on. lh3 Administered Medications: 16:45 Drug: Zofran (Ondansetron) 4 mg Route: IVP; Site: right antecubital; bp 18:57 Follow up: Response: No adverse reaction bp 16:45 Drug: NS 0.9% 1000 ml Route: IV; Rate: 1000 ml; Site: right antecubital; bp 23:41 Follow up: Response: No adverse reaction; IV Status: Completed infusion lh3 18:35 Drug: Meclizine 50 mg Route: PO; bp 18:58 Follow up: Response: No adverse reaction bp 23:06 Drug: Cipro (ciprofloxacin) 500 mg Route: PO; lh3 23:38 Follow up: Response: No adverse reaction lh3 Outcome: 23:14 Discharge ordered by . pm1 23:39 Patient left the ED. lh3 23:40 Discharged to home ambulatory. lh3 23:40 Condition: good 23:40 Discharge instructions given to patient, Instructed on discharge instructions, Demonstrated understanding of instructions. Addendum: 12/11/2020 09:26 Addendum: Culture Results: Positive urine culture. No further action required. Bacteria e b sensitive to prescribed antibiotic. Signatures: Dispatcher [employer] Liyah Luis Roman, MD MD rn Marinas, Patrick, RN [facility] RN [facility] pm1 Kirill Fay, RN RN Nita Macias Kristen, RN RN kg Trinidad Malloy RN RN lh3 Corrections: (The following items were deleted from the chart) 12/07 16:22 16:17 Allergies: No Known Allergies; kg kg
--- NOTE | 2020-12-07 23:15 | EDPHYS ---
Physician Documentation [facility] Name: Yodit Alarcon Age: 75 yrs Sex: Female : 1945 Arrival Date: 12/07/2020 Time: 16:12 Bed 18 Private MD: ED Physician Chong Mcmullen HPI: 12/07 16:39 This 75 yrs old Female presents to ER via Wheelchair with complaints of rn Headache, vomiting, cough, weakness. 16:41 The patient presents to the emergency department with nausea, vomiting, diarrhea, rn Cough, headache. Onset: The symptoms/episode began/occurred 1 week(s) ago. Possible causes: unknown. The symptoms are aggravated by nothing. The symptoms are alleviated by nothing. Associated signs and symptoms: Pertinent positives: diarrhea, nausea, vomiting, Headache. Severity of symptoms: At their worst the symptoms were moderate in the emergency department the symptoms are unchanged. The patient has experienced similar episodes in the past. The patient has been recently seen by a physician:. Patient reports headache/dizziness/cough/vomiting and diarrhea/generalized weakness. Reports has been having headaches since her last admission when she was found to have 80% blockage and had a stent placed. States history of migraines in the past. Also coughing states coughing so hard it was making her throw up. She cannot tell me whether she is throwing up because of her cough or vomiting separate from the cough. States dizziness and lightheadedness with generalized weakness and fatigue. States very mild abdominal discomfort. No chest pain.. Historical: - Allergies: 16:17 codeine sulfate; kg - Home Meds: 16:17 clopidogrel 75 mg oral tab 1 tab once daily [Active]; metoprolol tartrate 25 mg Oral kg tab 1 tab 2 times per day [Active]; famotidine 20 mg Oral tab 1 tab once daily [Active]; levothyroxine 50 mcg cap 1 cap once daily [Active]; atorvastatin 40 mg oral tab 1 tab once daily [Active]; alendronate 70 mg oral tab 1 tab daily [Active]; - PMHx: 16:17 Thyroid disfunction; Hypertensive disorder; Hypercholesterolemia; acid reflux; kg - PSHx: 16:17 Cardiac stent; Cholecystectomy; Ligation of fallopian tube; Jose wrist sx; kg - Immunization history:: Adult Immunizations up to date, Client reports receiving the 2nd dose of the Covid vaccine, Date received: June 13, 2020 [employer] Client reports receiving the 1st dose of the Covid vaccine, May 23, 2020 [employer]. - Social history:: Smoking status: Patient denies any tobacco usage or history of. - Family history:: not pertinent. - Hospitalizations: : The patient was recently seen at [facility]. ROS: 16:41 Constitutional: Negative for fever, chills, and weight loss, Eyes: Negative for injury, rn pain, redness, and discharge, ENT: Negative for injury, pain, and discharge, Neck: Negative for injury, pain, and swelling, Cardiovascular: Negative for chest pain, palpitations, and edema, Respiratory: Positive for cough Abdomen/GI: Negative for constipation, positive for nausea and vomiting Back: Negative for injury and pain, : Negative for injury, bleeding, discharge, and swelling, MS/Extremity: Negative for injury and deformity, Skin: Negative for injury, rash, and discoloration, Neuro: Negative for numbness, tingling, and seizure 16:41 All other systems are negative. Exam: 16:41 Constitutional: This is a well developed, well nourished patient who is awake, alert, rn persistent cough into emesis bag, no emesis noted. Head/Face: Normocephalic, atraumatic. Eyes: Periorbital areas with no swelling, redness, or edema. ENT: No stridor Cardiovascular: Regular rate and rhythm. No pulse deficits. Respiratory: Mild tachypnea no retractions. Abdomen/GI: Soft, non-tender Skin: Warm, dry MS/ Extremity: Pulses equal, no cyanosis. Neuro: Awake and alert, GCS 15, oriented to person, place, time, and situation. Cranial nerves II-XII grossly intact. Motor strength 5/5 in all extremities. Sensory grossly intact. Cerebellar exam normal. Normal gait. Able to stand and get into stretcher on her own from wheelchair. Vital Signs: 16:15 BP 157 / 83; Pulse 80; Resp 20; Temp 97.8(O); Pulse Ox 99% on R/A; Weight 73.48 kg (R); kg Height 5 ft. 2 in. (157.48 cm) (R); Pain 7/10; 17:30 BP 121 / 66; Pulse 75; Resp 16; Pulse Ox 99% ; bp 18:30 BP 115 / 67; Pulse 87; Resp 16; Pulse Ox 97% ; bp 19:38 BP 124 / 63; Pulse 70; Resp 18; Pulse Ox 95% on R/A; lh3 16:15 Body Mass Index 29.63 (73.48 kg, 157.48 cm) kg MDM: 16:25 Patient medically screened. rn 18:31 Differential diagnosis: Nonspecific abd pain, gastritis, pancreatitis, appendicitis, rn diverticulitis, viral gastroenteritis, gastroenteritis, Vertigo, urine infection. Data reviewed: vital signs, nurses notes, lab test result(s), radiologic studies, CT scan. Data interpreted: classroom monitor: rate is 75 beats/min, rhythm is normal sinus rhythm, regular, with no ectopy, Interpretation: normal rate, normal rhythm, Pulse oximetry: on room air is 99 %. Interpretation: normal. Test interpretation: by ED physician or midlevel provider: plain radiologic studies, Chest x-ray negative for acute infiltrate or pneumothorax. Counseling: I had a detailed discussion with the patient and/or guardian regarding: the historical points, exam findings, and any diagnostic results supporting the discharge/admit diagnosis, lab results, radiology results. Response to treatment: the patient's symptoms have markedly improved after treatment. ED course: Patient improved, resting in room, no acute findings and work-up thus far including chest x-ray and CT of the head and abdomen pelvis. Awaiting urine and Covid test. Patient states was diagnosed with UTI at this past visit and was sent home on antibiotics. Denies any current urinary symptoms.. 23:01 ED course: Patient's prior hospitalization reviewed. Patient was discharged home with pm1 Victoria on 11/28. Urine culture results resulted on 11/29. Patient reports no change in antibiotic regimens from discharge. Resistance to cephalosporins present in culture. Susceptible to quinolones, therefore will administer Cipro in the ER. Patient reports headache resolved with medications given in the ER. Will discharge home with meclizine and Cipro. 12/07 16:24 Order name: Basic Metabolic Panel; Complete Time: 17:40 kg 12/07 16:24 Order name: CBC with Diff; Complete Time: 17:40 kg 12/07 16:24 Order name: Hepatic Function; Complete Time: 17:40 kg 12/07 16:24 Order name: Lipase; Complete Time: 17:40 kg 12/07 16:34 Order name: Urine Microscopic Only rn 12/07 16:34 Order name: XRAY Chest (1 view); Complete Time: 17:40 rn 12/07 16:34 Order name: CT Head Brain wo Cont; Complete Time: 18:18 rn 12/07 16:35 Order name: Urine Microscopic Only; Complete Time: 22:45 EDSC 12/07 16:37 Order name: CT Abd/Pelvis - IV Contrast Only; Complete Time: 18:20 rn 12/07 18:56 Order name: Urine Dipstick-Ancillary; Complete Time: 22:45 EDSC 12/07 19:39 Order name: SARS-COV-2 RT PCR; Complete Time: 22:45 EDSC 12/07 20:22 Order name: Urine Culture [facility] 12/07 16:24 Order name: IV Saline Lock; Complete Time: 18:03 kg 12/07 16:24 Order name: Labs collected and sent; Complete Time: 18:03 kg 12/07 16:34 Order name: EKG; Complete Time: 16:34 rn 12/07 16:34 Order name: EKG - Nurse/Tech; Complete Time: 18:03 rn 12/07 16:34 Order name: Urine Dipstick-Ancillary (obtain specimen); Complete Time: 18:56 rn Administered Medications: 16:45 Drug: Zofran (Ondansetron) 4 mg Route: IVP; Site: right antecubital; bp 18:57 Follow up: Response: No adverse reaction bp 16:45 Drug: NS 0.9% 1000 ml Route: IV; Rate: 1000 ml; Site: right antecubital; bp 23:41 Follow up: Response: No adverse reaction; IV Status: Completed infusion lh3 18:35 Drug: Meclizine 50 mg Route: PO; bp 18:58 Follow up: Response: No adverse reaction bp 23:06 Drug: Cipro (ciprofloxacin) 500 mg Route: PO; lh3 23:38 Follow up: Response: No adverse reaction lh3 Disposition Summary: 12/07/20 23:14 Discharge Ordered Location: Home pm1 Problem: new pm1 Symptoms: have improved pm1 Condition: Stable pm1 Diagnosis - UTI/ Urinary tract infection, site not specified pm1 - Headache pm1 Followup: pm1 - With: Emergency Department - When: As needed - Reason: Worsening of condition Followup: pm1 - With: Private Physician - When: 2 - 3 days - Reason: Recheck today's complaints, Continuance of care, Re-evaluation by your physician Discharge Instructions: - Discharge Summary Sheet pm1 - General Headache Without Cause pm1 - Urinary Tract Infection, Adult pm1 Forms: - Medication Reconciliation Form pm1 - Thank You Letter pm1 - Antibiotic Education pm1 - Prescription Opioid Use pm1 Prescriptions: - ondansetron 4 mg Oral tablet,disintegrating - take 1 tablet by ORAL route every 8 hours As needed; 20 tablet; Refills: 0, pm1 Product Selection Permitted - Meclizine 25 mg Oral Tablet - take 1 tablet by ORAL route every 8 hours As needed; 30 tablet; Refills: 0, pm1 Product Selection Permitted - Cipro 500 mg Oral Tablet - take 1 tablet by ORAL route every 12 hours for 10 days; 20 tablet; Refills: 0, pm1 Product Selection Permitted Addendum: 12/09/2020 07:25 Co-signature as Attending Physician, Chong Mcmullen MD I agree with the assessment and r n plan of care. Signatures: Dispatcher [employer] Chong Allan MD MD rn Marinas, Patrick, CHIEF TECHNOLOGY OFFICER CHIEF TECHNOLOGY OFFICER pm1 Kirill Fay, RN RN Joanne Marin RN RN kg Trinidad Malloy RN RN lh3 Corrections: (The following items were deleted from the chart) 12/07 16:22 16:17 Allergies: No Known Allergies; kg kg 18:39 16:25 CORONAVIRUS+MR.LAB.BRZ ordered. [facility]
[2020-12-08 00:51] VITALS: TEMP 97.8
[2020-12-08 00:55] VITALS: BP 124/63; O2SAT 95
--- NOTE | 2020-12-08 10:06 | EKG ---
Test Date: 2020-12-07 Test Time: 17:25:45 [employer] Patrol Inspector: BP MEASUREMENT RESULTS: Intervals: Rate: 64 RI: 176 QRSD: 74 QT: 446 QTc: 460 [place]: P: 31 RI: 176 QRS: 9 T: 39 INTERPRETIVE STATEMENTS: Normal sinus rhythm Cannot rule out Anterior infarct, age undetermined Abnormal ECG Compared to ECG 11/26/2020 20:34:52 Myocardial infarct finding now present Sinus tachycardia no longer present Electronically Signed On 12-08-20 10:04:43 CDT by Ace Tatum
== END 2020-12-07 23:39 | disposition home or self-care (01) ==
LOC: ER 16:10
DX: N39.0 Urinary tract infection, site not specified (principal); I10 Essential (primary) hypertension; E07.9 Disorder of thyroid, unspecified; Z20.822 Contact with and (suspected) exposure to COVID-19; Z88.5 Allergy status to narcotic agent
CPT/HCPCS: 96361; 93005; 87088; 85025; 87086; 80048; 36415; 80076; 87077; 87186; 83690; 70450; 74177; 71045; 96374; 99284; U0003; Q9967; J7030; J2405; 81003; 81015

== ENCOUNTER 2024-07-31 16:55 | Emergency (ER) | payer OTHER ==
--- NOTE | 2024-07-31 17:52 | ER ---
Nurse's Notes [facility] Name: Viviana Alarcon Age: 78 yrs Sex: Female : 1945 Arrival Date: 07/31/2024 Time: 16:55 Bed IW3 [facility] MD: Diagnosis: Presentation: 07/31 17:05 Note LEFT AMA. REGISTRATION REPORTS PT LEFT AMA. db 17:37 Note UNABLE TO LOCATE PT. db ED Course: 16:58 Patient arrived in ED. al6 17:05 Patient's name was called from ER [facility]. No response. db 17:24 Javier Malin MD is Attending Physician. delvis 17:37 Patient's name was called from ER [facility]. No response. Unable to locate patient. Will db disposition as left without being seen by a provider. Administered Medications: No medications were administered Outcome: 17:52 Patient left the ED. Signatures: Javier Malin MD MD cha Baxter, Heather RN RN Sheron Jones RN RN Rufina Mitchell al6 Corrections: (The following items were deleted from the chart) 17:37 17:05 Note LEFT AMA db db
== END 2024-07-31 17:52 | disposition left against medical advice (07) ==
LOC: ER 16:55
DX: Z02.9 Encounter for administrative examinations, unspecified (principal)

== ENCOUNTER 2024-08-13 13:28 | Observation (INO) | payer OTHER ==
[2024-08-13] MEDS ORDERED: ASPIRIN 81 MG CHEWABLE TABLET ONE (13:54)
[2024-08-13 14:07] LABS: PT Prothrombin Time 12.4 SECONDS (10-13.0); Protime INR 1.09
[2024-08-13 14:12] LABS: Absolute Eosinophils 0.1 K/uL (0-0.5); Absolute Lymphocytes (CBC) 1.5 K/uL (0.7-4.9); Absolute Monocytes 0.4 K/uL (0.1-1.3); Basophils % 0.4 % (0-1.3); Eosinophils % 1.8 % (0-4.4); Hematocrit 39.8 % (36.0-45.0); Lymphocytes % 25.1 % (15.3-44.8); MCH 31.7 pg (27.0-35.0); MCHC 35.3 g/dL (32.0-36.0); Monocytes % 7.2 % (3.3-12.3); Neutrophils % 65.5 % (41.7-73.7); Platelets 192 thou/uL (152-406); RBC Red Blood Cell Count 4.43 M/uL (3.86-4.86); Red Cell Distribution Width 13.5 % (12.1-15.2)
[2024-08-13 14:20] LABS: Albumin 3.1 g/dL (3.4-5.0); Albumin/Globulin Ratio 0.6 (1.1-1.8); Bilirubin Direct 0.3 mg/dL (0-0.2); Bilirubin Indirect, Calculated 0.9 mg/dL (0.2-0.8); Bilirubin Total 1.2 mg/dL (0.2-1.0); Globulin 4.9 g/dL (2.3-3.5); Magnesium 1.7 mg/dL (1.6-2.4); Troponin High Sensitivity 4.7 pg/mL (<58.9)
--- NOTE | 2024-08-13 14:31 | RAD REPORT ---
EXAMINATION: ONE VIEW CHEST XR CLINICAL INDICATION: Female, 78 years old.,CHEST PAIN TECHNIQUE: Frontal chest projection is submitted. Examination is limited by patient positioning and t echnique. COMPARISON: 12/17/2022 FINDINGS: The lungs are well inflated and clear. No pneumothorax or sizable effusion. The heart is normal in s ize. Mediastinal contours are unchanged, with table gas-filled retrocardiac opacity suggesting a hiatal hernia. IMPRESSION: No acute intrathoracic abnormalities.
--- NOTE | 2024-08-13 14:50 | EDPHYS ---
Physician Documentation [facility] Name: Viviana Alarcon Age: 78 yrs Sex: Female : 1945 Arrival Date: 08/13/2024 Time: 13:28 Bed 3 Private MD: ED Physician Danielle Merchant HPI: 08/13 13:46 This 78 yrs old Female presents to ER via EMS with complaints of Chest Pain. sp3 14:42 This 78 yrs old Female presents to ER via EMS with complaints of Chest Pain. sp3 14:42 78-year-old female with history of hypertension, hyperlipidemia, multiple prior stents, sp3 CAD presents to the ED for recurrent chest pain. She states that she has 8 stents and her prior episodes presented the same way as it does not. Patient has pain underneath her left breast and is worse when she moves her upper extremity on the left side. ROS negative for headache, neck pain, shortness of breath, abdominal pain, back pain, vomiting, diarrhea, syncope or any other signs or symptoms on ROS at this time.. Historical: - Allergies: 13:39 codeine sulfate; bp - PMHx: 13:39 acid reflux; Hypercholesterolemia; Hypertensive disorder; Thyroid disfunction; bp - PSHx: 13:39 Jose wrist sx; cardiac stent; Cholecystectomy; Ligation of fallopian tube; bp - Immunization history:: Adult Immunizations up to date. - Infectious Disease History:: Denies. - Social history:: Smoking status: unknown. ROS: 14:44 Constitutional: Negative for fever, chills, and weight loss, Eyes: Negative for injury, sp3 pain, redness, and discharge, Neck: Negative for injury, pain, and swelling, Respiratory: Negative for shortness of breath, cough, wheezing, and pleuritic chest pain, Abdomen/GI: Negative for abdominal pain, nausea, vomiting, diarrhea, and constipation, Back: Negative for injury and pain, MS/Extremity: Negative for injury and deformity, Skin: Negative for injury, rash, and discoloration, Neuro: Negative for headache, weakness, numbness, tingling, and seizure, Psych: Negative for depression, anxiety, suicide ideation, homicidal ideation, and hallucinations, Allergy/Immunology: Negative for hives, rash, and allergies, Endocrine: Negative for neck swelling, polydipsia, polyuria, polyphagia, and marked weight changes, 14:44 All other systems are negative, Exam: 14:44 Constitutional: This is a well developed, well nourished patient who is awake, alert, sp3 and in no acute distress. Head/Face: Normocephalic, atraumatic. Eyes: Pupils equal round and reactive to light, extra-ocular motions intact. Lids and lashes normal. Conjunctiva and sclera are non-icteric and not injected. Cornea within normal limits. Periorbital areas with no swelling, redness, or edema. Neck: Trachea midline, no thyromegaly or masses palpated, and no cervical lymphadenopathy. Supple, full range of motion without nuchal rigidity, or vertebral point tenderness. No Meningismus. Chest/axilla: Normal chest wall appearance and motion. Nontender with no deformity. No lesions are appreciated. Cardiovascular: Regular rate and rhythm with a normal S1 and S2. No gallops, murmurs, or rubs. Normal PMI, no JVD. No pulse deficits. Respiratory: Lungs have equal breath sounds bilaterally, clear to auscultation and percussion. No rales, rhonchi or wheezes noted. No increased work of breathing, no retractions or nasal flaring. Abdomen/GI: Soft, non-tender, with normal bowel sounds. No distension or tympany. No guarding or rebound. No evidence of tenderness throughout. Back: No spinal tenderness. No costovertebral tenderness. Full range of motion. Skin: Warm, dry with normal turgor. Normal color with no rashes, no lesions, and no evidence of cellulitis. MS/ Extremity: Pulses equal, no cyanosis. Neurovascular intact. Full, normal range of motion. Neuro: Awake and alert, GCS 15, oriented to person, place, time, and situation. Cranial nerves II-XII grossly intact. Motor strength 5/5 in all extremities. Sensory grossly intact. Cerebellar exam normal. Normal gait. Psych: Awake, alert, with orientation to person, place and time. Behavior, mood, and affect are within normal limits. 14:44 ECG was reviewed by the Attending Physician. EKG demonstrates normal sinus rhythm at 78 bpm with normal intervals, normal QRS, normal axis, nonspecific ST/T-segment's without evidence of acute ischemia. Vital Signs: 13:29 BP 112 / 71; Pulse 75; Resp 15; Temp 97.2; Pulse Ox 100% ; bp 13:59 BP 124 / 73; Pulse 80; Resp 18; Pulse Ox 97% on R/A; ph 16:27 BP 118 / 65; Pulse 61; Resp 18; Temp 97.8; Pulse Ox 97% on R/A; ph 17:33 BP 124 / 72; Pulse 59; Resp 18; Temp 97.8; Pulse Ox 97% on R/A; ph MDM: 13:31 Medical Screening Exam initiated 14:48 Data reviewed: vital signs, nurses notes, lab test result(s), EKG, radiologic studies. sp3 ED course: 78-year-old female with CAD now with chest pain. Differential diagnosis includes acute coronary syndrome, angina, musculoskeletal pain, pleurisy, among others. Initial troponin negative. EKG nonspecific and chest x-ray negative. Will admit to medicine for serial cardiac markers and cardiac consultation.. 08/13 13:31 Order name: Basic Metabolic Panel; Complete Time: 14:41 3 08/13 13:31 Order name: CBC with Diff; Complete Time: 14:41 3 08/13 13:31 Order name: LFT's; Complete Time: 14:41 3 08/13 13:31 Order name: Magnesium; Complete Time: 14:41 3 08/13 13:31 Order name: NT PRO-BNP; Complete Time: 14:41 3 08/13 13:31 Order name: PT-INR; Complete Time: 14:41 3 08/13 13:31 Order name: Troponin HS; Complete Time: 14:41 3 08/13 15:39 Order name: Basic Metabolic Panel EDMS 08/13 15:39 Order name: Basic Metabolic Panel EDMS 08/13 15:39 Order name: Basic Metabolic Panel EDMS 08/13 15:39 Order name: CBC with Automated Diff EDMS 08/13 15:39 Order name: CBC with Automated Diff EDMS 08/13 15:39 Order name: CBC with Automated Diff EDMS 08/13 15:39 Order name: Troponin High Sensitivity EDMS 08/13 15:39 Order name: Troponin High Sensitivity EDMS 08/13 15:39 Order name: Troponin High Sensitivity EDMS 08/13 13:31 Order name: XRAY Chest (1 view); Complete Time: 14:41 3 08/13 13:31 Order name: Cardiac monitoring; Complete Time: 13:57 sp3 08/13 13:31 Order name: EKG - Nurse/Tech; Complete Time: 13:57 sp3 08/13 13:31 Order name: IV Saline Lock; Complete Time: 13:57 sp3 08/13 13:31 Order name: Labs collected and sent; Complete Time: 13:57 sp3 08/13 13:31 Order name: O2 Per Protocol; Complete Time: 13:57 sp3 08/13 13:31 Order name: O2 Sat Monitoring; Complete Time: 13:57 sp3 Administered Medications: 13:58 Drug: Aspirin PO Chewable Tablet 324 mg PO once; 81 mg tablets x 4 Route: PO; ph 17:34 Follow up: Response: No adverse reaction ph Disposition Summary: 08/13/24 14:50 Hospitalization Ordered Notes: Hospitalization Status: Observation sp3 Provider: Jarrod Mcmullen sp3 Location: Telemetry/MedSurg (observation) sp3 Condition: Stable sp3 Problem: an acute exacerbation sp3 Symptoms: have worsened sp3 Bed/Room Type: Standard sp3 Room Assignment: 214(08/13/24 16:20) bd Diagnosis - Chest pain sp3 Forms: - Medication Reconciliation Form sp3 - SBAR form sp3 - Leadership Thank You Letter sp3 Signatures: Dispatcher [employer] EDDara Moreno Patricia, RN RN Kirill Alberto, RN RN Danielle Greene MD MD sp3 Corrections: (The following items were deleted from the chart) 13:32 13:32 BASIC METABOLIC PANEL+C.LAB.BRZ ordered. EDMS EDMS 13:32 13:32 CBC+H.LAB.BRZ ordered. EDMS EDMS 13:32 13:32 HEPATIC FUNCTION+C.LAB.BRZ ordered. EDMS EDMS 13:32 13:32 MAGNESIUM+C.LAB.BRZ ordered. EDMS EDMS 13:32 13:32 PROBNP+C.LAB.BRZ ordered. EDMS EDMS 13:32 13:32 PROTIME (+INR)+COAG.LAB.BRZ ordered. EDMS EDMS 13:32 13:32 Troponin High Sensitivity+C.LAB.BRZ ordered. EDMS EDMS 13:32 13:32 Chest Single View+RAD.RAD.BRZ ordered. EDMS EDMS 16:20 14:50 sp3 bd
--- NOTE | 2024-08-13 14:50 | ER ---
Nurse's Notes [facility] Name: Viviana Alarcon Age: 78 yrs Sex: Female : 1945 Arrival Date: 08/13/2024 Time: 13:28 Bed 3 Private MD: Diagnosis: Chest pain Presentation: 08/13 13:29 Chief complaint: EMS states: LEFT CP. Coronavirus screen: At this time, the client does bp not indicate any symptoms associated with coronavirus-19. Ebola Screen: No symptoms or risks identified at this time. Initial Sepsis Screen: Does the patient meet any 2 criteria? No. Patient's initial sepsis screen is negative. Does the patient have a suspected source of infection? No. Patient's initial sepsis screen is negative. Risk Assessment: Do you want to hurt yourself or someone else? Patient reports no desire to harm self or others. Onset of symptoms. Care prior to arrival: Medication(s) given: Nitroglycerin, 0.4 mg SL x 3. 13:29 Method Of Arrival: EMS: [facility] bp 13:29 Acuity: EDVIN 3 bp Triage Assessment: 13:39 General: Appears in no apparent distress. Behavior is cooperative, appropriate for age, bp anxious. Pain: Complains of pain in chest. EENT: No deficits noted. Neuro: No deficits noted. Cardiovascular: Rhythm is sinus rhythm. Respiratory: No deficits noted. GI: No signs and/or symptoms were reported involving the gastrointestinal system. : No signs and/or symptoms were reported regarding the genitourinary system. Derm: No deficits noted. Musculoskeletal: No deficits noted. Historical: - Allergies: 13:39 codeine sulfate; bp - PMHx: 13:39 acid reflux; Hypercholesterolemia; Hypertensive disorder; Thyroid disfunction; bp - PSHx: 13:39 Jose wrist sx; cardiac stent; Cholecystectomy; Ligation of fallopian tube; bp - Immunization history:: Adult Immunizations up to date. - Infectious Disease History:: Denies. - Social history:: Smoking status: unknown. Screenin:[address] [facility] ED Fall Risk Assessment (Adult) History of falling in the last 3 months, ph including since admission No falls in past 3 months (0 pts) Confusion or Disorientation No (0 pts) Intoxicated or Sedated No (0 pts) Impaired Gait No (0 pts) Mobility Assist Device Used No (0 pt) Altered Elimination No (0 pt) Score/Fall Risk Level 0 - 2 = Low Risk Oriented to surroundings, Maintained a safe environment, Hourly rounding (assess needs \T\ fall precautionary measures) done. Abuse screen: Denies threats or abuse. Denies injuries from another. Nutritional screening: No deficits noted. Tuberculosis screening: No symptoms or risk factors identified. Assessment: 13:58 General: Appears in no apparent distress. comfortable, well groomed, Behavior is calm, ph cooperative, appropriate for age. Pain: Complains of pain in anterior aspect of left upper chest Pain does not radiate. Pain began suddenly. Neuro: Level of Consciousness is awake, alert, obeys commands, Oriented to person, place, time, situation. Cardiovascular: Reports chest pain, shortness of breath. Cardiovascular: Chest pain is located in left anterior chest wall. Respiratory: Airway is patent Respiratory effort is even, unlabored, Respiratory pattern is regular, symmetrical. Derm: Skin is pink, warm \T\ dry. Vital Signs: 13:29 BP 112 / 71; Pulse 75; Resp 15; Temp 97.2; Pulse Ox 100% ; bp 13:59 BP 124 / 73; Pulse 80; Resp 18; Pulse Ox 97% on R/A; ph 16:27 BP 118 / 65; Pulse 61; Resp 18; Temp 97.8; Pulse Ox 97% on R/A; ph 17:33 BP 124 / 72; Pulse 59; Resp 18; Temp 97.8; Pulse Ox 97% on R/A; ph Vitals: 13:59 Cardiac Rhythm Assessment Sinus rhythm. ph ED Course: 13:29 Patient arrived in ED. bp 13:31 Danielle Merchant MD is Attending Physician. sp3 13:34 Triage completed. bp 13:37 Clari Castillo, RN is Primary Nurse. ph 13:39 Arm band placed on. bp 13:59 Patient has correct armband on for positive identification. Placed in gown. Bed in low ph position. Call light in reach. Side rails up X2. Client placed on continuous cardiac and pulse oximetry monitoring. NIBP monitoring applied. case monitor on. Door closed. Noise minimized. Warm blanket given. 13:59 Initial lab(s) drawn, by me, sent to lab. EKG done, by ED staff, reviewed by Danielle Merchant MD. Inserted saline lock: 20 gauge in right antecubital area, using aseptic technique. Blood collected. Flushed with 10 mL NS. Patient maintains SpO2 saturation greater than 95% on room air. 14:25 XRAY Chest (1 view) In Process Unspecified. EDMS 14:50 Jarrod Mcmullen MD is Hospitalizing Provider. sp3 16:27 No provider procedures requiring assistance completed. Patient admitted, IV remains in ph place. Administered Medications: 13:58 Drug: Aspirin PO Chewable Tablet 324 mg PO once; 81 mg tablets x 4 Route: PO; ph 17:34 Follow up: Response: No adverse reaction ph Medication: 13:59 VIS not applicable for this client. ph Outcome: 14:50 Decision to Hospitalize by Provider. sp3 17:32 Patient left the ED. ph 17:33 Admitted to Tele accompanied by tech, family with patient, via wheelchair, with chart, ph 17:33 Condition: stable 17:33 Instructed on the need for admit, Signatures: Dispatcher [employer] EDClari Rose, RN RN Kirill Alberto RN RN Danielle Greene MD MD sp3
[2024-08-13] MEDS ORDERED: ONDANSETRON 4 MG/2 ML VIAL IV PRN (15:34)
--- NOTE | 2024-08-13 16:09 | P.HP ---
Certification for Inpatient Patient admitted to: Observation With expected LOS: <2 Midnights Patient will require the following post-hospital care: None Practitioner: I am a practitioner with admitting privileges, knowledge of patient current condition, hospital course, and medical plan of care. Services: Services provided to patient in accordance with Admission requirements found in Title 42 Section 412.3 of the Code of Federal Regulations Patient History Date of Service: 08/13/24 Reason for admission: Chest pain History of Present Illness: 78-year-old female with history of CAD, hypertension, hyperlipidemia, hypothyroidism presents the emergency department chief complaint of chest pain. She has 8 coronary stents, her last heart catheterization was in April 2024 at that time she had 2 stents placed. She also had a heart catheterization here in November 2022 with a stent to the RCA. Most recently she was transferred from our facility to [facility] for evaluation, at that time they started her on isosorbide but she had frequent headaches with this and could not tolerate it and for that reason it was discontinued. Today she had an episode of pressure-like chest pain radiating from her mid sternum under her left breast and around to her back. Patient was evaluated in the emergency department initial high sensitive padding was normal at 4.7, chest x-ray is negative for acute findings. Given her extensive coronary history ED provider wishes to admit under observation for ACS rule out. Allergies codeine Adverse Reaction (Verified 12/20/22 15:07) Nausea/Vomiting Home Medications: Aspirin [Aspirin EC] 81 mg PO DAILY #90 11/28/20 Atorvastatin Calcium [Lipitor] 40 mg PO DAILY #30 tablet 11/28/20 Levothyroxine [Synthroid*] 0.05 mg PO [id number] tablet 11/28/20 Alendronate Sodium 70 mg PO DAILY 12/20/22 Pantoprazole [Protonix Tab] 40 mg PO DAILY 12/20/22 hydroCHLOROthiazide [Hydrodiuril] 25 mg PO NOON 12/20/22 - Past Medical/Surgical History -: Hypertension -: Hyperlipidemia -: CAD -: Hypothyroidism -: Tubal ligation -: Appendectomy -: Cholecystectomy -: Bilateral wrist surgery -: Bone spur Psychosocial/ Personal History: Retired, lives with daughter - Family History Mother -: Liver disease Father -: Stroke - Social History Alcohol use: No CD- Drugs: No Caffeine use: Yes Place of Residence: Home Review of Systems 10-point ROS is otherwise unremarkable Cardiovascular: Chest Pain Physical Examination - Physical Exam General: Alert, In no apparent distress, Oriented x3 HEENT: Atraumatic, PERRLA, EOMI Neck: Supple, 2+ carotid pulse no bruit, No LAD Respiratory: Clear to auscultation bilaterally, Normal air movement Cardiovascular: Regular rate/rhythm, Normal S1 S2 Gastrointestinal: Normal bowel sounds, No tenderness Musculoskeletal: No tenderness Integumentary: No rashes Neurological: Normal speech, Normal strength at 5/5 x4 extr, Normal affect - Studies Laboratory Data (last 24 hrs) 08/13/24 08/13/24 08/13/24 13:45 13:45 13:45 WBC 6.10 Hgb 14.0 Hct 39.8 Plt Count 192 PT 12.4 INR 1.09 Sodium 136 Potassium 3.0 L BUN 22 H Creatinine 1.15 H Glucose 152 H Magnesium 1.7 Total Bilirubin 1.2 H AST 33 ALT 37 Alkaline Phosphatase 112 Assessment and Plan - Plan Assessment: Chest pain rule out ACShistory of CAD Hypertension Hyperlipidemia Hypothyroidism Plan: Chest pain rule out ACShistory of CAD Has a coronary stents Last heart cath 05/21 with 2 stents placed Monitor on telemetry, trend troponins Cardiology consultation Was recently trialed on isosorbide but had persistent headaches and for this reason this medication was discontinued Hypertension Hyperlipidemia Hypothyroidism Home medications continued DVT PPX: Lovenox Code status: Full Discharge Plan: Home Plan to discharge in: 24 Hours - Advance Directives Does patient have a Living Will: No Does patient have a Durable POA for Healthcare: No - Code Status/Comfort Care Code Status Assessed: Yes (Full code) Critical Care: No Time Spent Managing Pts Care (In Minutes): 75
[2024-08-13 17:42] VITALS: O2SAT 97
[2024-08-13] MEDS: MORPHINE 2 MG/ML SYR IV PRN (18:22)
[2024-08-13 18:31] VITALS: BMI 27.4
[2024-08-13] MEDS: NITROGLYCERIN 0.4 MG/TAB SL PRN (18:57)
[2024-08-13] MEDS: EZETIMIBE 10 MG TAB PO SCH (20:18)
[2024-08-13] MEDS: ATORVASTATIN 40 MG TAB PO SCH (20:18)
[2024-08-14] MEDS: METOPROLOL XL 50 MG TAB PO SCH (05:44)
[2024-08-14] MEDS: PANTOPRAZOLE 40MG TABLET PO SCH (05:44)
[2024-08-14] MEDS: LEVOTHYROXINE SOD 0.05 MG TABLET PO SCH (05:44)
[2024-08-14 06:56] LABS: Absolute Eosinophils 0.1 K/uL (0-0.5); Absolute Lymphocytes (CBC) 1.5 K/uL (0.7-4.9); Absolute Monocytes 0.7 K/uL (0.1-1.3); Absolute Neutrophil 3.8 K/uL (1.8-8.0); Basophils % 0.3 % (0-1.3); Eosinophils % 1.9 % (0-4.4); Hematocrit 40.5 % (36.0-45.0); Lymphocytes % 24.3 % (15.3-44.8); MCH 31.5 pg (27.0-35.0); MCHC 34.6 g/dL (32.0-36.0); MCV 90.9 fL (80-100); MPV 6.9 fL (7.6-11.3); Monocytes % 10.8 % (3.3-12.3); Neutrophils % 62.7 % (41.7-73.7); Nucleated Red Blood Cells % 0.1 % (0-0); Platelets 174 thou/uL (152-406); RBC Red Blood Cell Count 4.45 M/uL (3.86-4.86); Red Cell Distribution Width 13.5 % (12.1-15.2)
[2024-08-14 07:14] LABS: Anion Gap 10.2 mEq/L (5.0-15.0); Potassium 3.2 mEq/L (3.5-5.1); Troponin High Sensitivity 7.7 pg/mL (<58.9)
[2024-08-14] MEDS: hydroCHLOROthiazide 25 MG TAB PO SCH (09:00)
[2024-08-14] MEDS: POTASSIUM 25 MEQ EFFERV TAB PO ONE (09:52)
[2024-08-14] MEDS: ENOXAPARIN 40 MG/0.4 ML SQ SCH (09:53)
[2024-08-14] MEDS: VALACYCLOVIR 500 MG TAB PO SCH (09:53)
[2024-08-14] MEDS: ASPIRIN EC 81 MG TAB PO SCH (09:53)
--- NOTE | 2024-08-14 12:04 | P.CNS ---
Date of Consult: 08/14/24 Chief Complaint: Chest pain History of Present Illness: Patient with PMH of CAD s/p multiple stents, last placed in [facility], presented with lower left sided chest pain, radiating to mid area and right side, also yesterday she felt numbness in her arm, patient say she was recently admitted to [facility] for same problem, pain has been chronic and they tried NTG but she got bad headaches and she discontinued it. no syncope. Allergies codeine Adverse Reaction (Verified 12/20/22 15:07) Nausea/Vomiting Home medications list reviewed: Yes Home Medications: Aspirin [Aspirin EC] 81 mg PO DAILY #90 11/28/20 Atorvastatin Calcium [Lipitor] 40 mg PO DAILY #30 tablet 11/28/20 Levothyroxine [Synthroid*] 0.05 mg PO [id number] tablet 11/28/20 Alendronate Sodium 70 mg PO DAILY 12/20/22 Pantoprazole [Protonix Tab] 40 mg PO DAILY 12/20/22 hydroCHLOROthiazide [Hydrodiuril] 25 mg PO NOON 12/20/22 - Past Medical/Surgical History Diabetic: No -: Hypertension -: Hyperlipidemia -: CAD -: Hypothyroidism -: Tubal ligation -: Appendectomy -: Cholecystectomy -: Bilateral wrist surgery -: Bone spur Psychosocial/ Personal History: Retired, lives with daughter - Family History Mother Medical History: Liver disease Father Medical History: Stroke - Social History Smoking Status: Unknown if ever smoked Alcohol use: No CD- Drugs: No Caffeine use: No Place of Residence: Home Review of Systems 10-point ROS is otherwise unremarkable Physical Examination Temp Pulse Resp BP Pulse Ox 97.9 F 58 15 114/45 L 96 08/14/24 08:00 08/14/24 08:00 08/14/24 08:00 08/14/24 08:00 08/14/24 08:00 General: Alert, In no apparent distress HEENT: Atraumatic, PERRLA, Mucous membr. moist/pink, EOMI, Sclerae nonicteric Neck: Supple, 2+ carotid pulse no bruit, No LAD, Without JVD or thyroid abnormality Respiratory: Clear to auscultation bilaterally, Normal air movement Cardiovascular: Regular rate/rhythm, Normal S1 S2 Gastrointestinal: Normal bowel sounds, No tenderness Musculoskeletal: No tenderness Integumentary: No rashes Neurological: Normal gait, Normal speech, Normal tone, Normal affect Lymphatics: No axilla or inguinal lymphadenopathy Laboratory Data (last 24 hrs) 08/13/24 08/13/24 08/13/24 13:45 13:45 13:45 WBC 6.10 Hgb 14.0 Hct 39.8 Plt Count 192 PT 12.4 INR 1.09 Sodium 136 Potassium 3.0 L BUN 22 H Creatinine 1.15 H Glucose 152 H Magnesium 1.7 Total Bilirubin 1.2 H AST 33 ALT 37 Alkaline Phosphatase 112 - Problems (1) CAD (coronary artery disease) Current Visit: Yes Status: Acute Plan: Patient with PMH of 8 stents placement in her heart, last done in [place], [place]. patient troponin negative x [address]-T wave changes. continue Toprol XL 50 mg daily add Ranexa 500 mg po BID patient can not tolerate IMdur due to headaches continue ASA 81 mg daily continue Plavix 75 mg daily Lipitor 40 mg daily outpatient follow up with cardiology for cardiac PET stress test. (2) HTN (hypertension) Current Visit: Yes Status: Acute Plan: continue Toprol XL and continue to monitor. (3) CKD (chronic kidney disease) Current Visit: Yes Status: Acute Plan: continue tot follow up with Nephrology.
[2024-08-14 12:37] VITALS: BP 113/49; TEMP 97.7
--- NOTE | 2024-08-14 12:39 | P.DS ---
Admission Date: 08/13/24 Discharge Date: 08/14/24 Disposition: ROUTINE DISCHARGE Discharge Condition: GOOD Reason for Admission: Chest pain Brief History of Present Illness: 78-year-old female with history of CAD, hypertension, hyperlipidemia, hypothyroidism presents the emergency department chief complaint of chest pain. She has 8 coronary stents, her last heart catheterization was in April 2024 at that time she had 2 stents placed. She also had a heart catheterization here in November 2022 with a stent to the RCA. Most recently she was transferred from our facility to [facility] for evaluation, at that time they started her on isosorbide but she had frequent headaches with this and could not tolerate it and for that reason it was discontinued. Today she had an episode of pressure-like chest pain radiating from her mid sternum under her left breast and around to her back. Patient was evaluated in the emergency department initial high sensitive padding was normal at 4.7, chest x-ray is negative for acute findings. Given her extensive coronary history ED provider wishes to admit under observation for ACS rule out. Hospital Course: Assessment: Chest pain rule out ACShistory of CAD Hypertension Hyperlipidemia Hypothyroidism Patient was admitted to the hospital for chest pain. She has experienced multiple episodes similar in the past. Most recently she was transferred to [facility] and evaluated diagnosed with angina and prescribed isosorbide. Unfortunately she had headaches associated with the isosorbide and her doctor di scontinued this medication. She came to the hospital with another episode of chest pain that sounds typical of her angina and was admitted under observation. Patient was monitored on telemetry with no significant events, troponins were trended and negative, she was seen by cardiology who recommends initiating ranolazine 500 mg twice daily which will be prescribed at discharge as well as a follow-up appointment in 1 week for stress test. Additionally patient was concerns about a small rash to the right hinduism area that was painful that started around 5 days ago. On exam she appears to have shingles to that affected area. She was started on valacyclovir, prescription for 7 days of valacyclovir will also be sent to her pharmacy. She will need to follow-up with her primary care doctor for further management past this. Vital Signs/Physical Exam: Temp Pulse Resp BP Pulse Ox 97.7 F 65 16 113/49 L 95 08/14/24 11:00 08/14/24 11:00 08/14/24 11:00 08/14/24 11:00 08/14/24 11:00 General: Alert, In no apparent distress, Oriented x3 HEENT: Atraumatic, PERRLA Neck: Supple, JVD not distended Respiratory: Clear to auscultation bilaterally, Normal air movement Cardiovascular: Regular rate/rhythm, Normal S1 S2 Gastrointestinal: Normal bowel sounds, No tenderness Musculoskeletal: No tenderness Integumentary: No rashes Neurological: Normal speech, Normal affect Laboratory Data at Discharge: WBC 6.10 thou/uL (4.3-10.9) 08/14/24 06:34 Hgb 14.0 g/dL (12.0-15.0) 08/14/24 06:34 Hct 40.5 % (36.0-45.0) 08/14/24 06:34 Plt Count 174 thou/uL (152-406) 08/14/24 06:34 PT 12.4 SECONDS (10-13.0) 08/13/24 13:45 INR 1.09 08/13/24 13:45 Sodium 137 mEq/L (136-145) 08/14/24 06:34 Potassium 3.2 mEq/L (3.5-5.1) L 08/14/24 06:34 BUN 25 mg/dL (7-18) H 08/14/24 06:34 Creatinine 1.13 mg/dL (0.55-1.02) H 08/14/24 06:34 Glucose 102 mg/dL (74-106) 08/14/24 06:34 Magnesium 1.7 mg/dL (1.6-2.4) 08/13/24 13:45 Total Bilirubin 1.2 mg/dL (0.2-1.0) H 08/13/24 13:45 AST 33 U/L (15-37) 08/13/24 13:45 ALT 37 U/L (13-56) 08/13/24 13:45 Alkaline Phosphatase 112 U/L (45-117) 08/13/24 13:45 Home Medications: Aspirin [Aspirin EC] 81 mg PO DAILY #90 11/28/20 Atorvastatin Calcium [Lipitor] 40 mg PO DAILY #30 tablet 11/28/20 Levothyroxine [Synthroid*] 0.05 mg PO [id number] tablet 11/28/20 Alendronate Sodium 70 mg PO DAILY 12/20/22 Pantoprazole [Protonix Tab*] 40 mg PO DAILY 12/20/22 hydroCHLOROthiazide [Hydrodiuril*] 25 mg PO NOON 12/20/22 Ranolazine [Ranolazine ER] 500 mg PO BID #60 tab 08/14/24 Valacyclovir HCl [Valacyclovir] 1,000 mg PO TID #21 tab 08/14/24 New Medications: Ranolazine [Ranolazine ER] 500 mg PO BID #60 tab Valacyclovir HCl [Valacyclovir] 1,000 mg PO TID #21 tab Physician Discharge Instructions: Patient was admitted to the hospital for chest pain. She has experienced multiple episodes similar in the past. Most recently she was transferred to [facility] and evaluated diagnosed with angina and prescribed isosorbide. Unfortunately she had headaches associated with the isosorbide and her doctor discontinued this medication. She came to the hospital with another episode of chest pain that sounds typical of her angina and was admitted under observation. Patient was monitored on telemetry with no significant events, troponins were trended and negative, she was seen by cardiology who recommends initiating ranolazine 500 mg twice daily which will be prescribed at discharge as well as a follow-up appointment in 1 week for stress test. Additionally patient was concerns about a small rash to the right hinduism area that was painful that started around 5 days ago. On exam she appears to have shingles to that affected area. She was started on valacyclovir, prescription for 7 days of valacyclovir will also be sent to her pharmacy. She will need to follow-up with her primary care doctor for further management past this. Diet: AHA Activity: Ad karishma Followup: Vicente Gaming MD [ACTIVE - CAN ADMIT] - 1 Week NONE,NONE [Primary Care Provider] - 1-2 Weeks Time spent managing pt's care (in minutes): 46
--- NOTE | 2024-08-20 12:46 | EKG ---
Test Date: 2024-08-13 Test Time: 18:14:26 Court Recording Monitor: ROSALBA MEASUREMENT RESULTS: Intervals: Rate: 78 MO: 192 QRSD: 72 QT: 422 QTc: 481 [place]: P: 28 MO: 192 QRS: 15 T: 27 INTERPRETIVE STATEMENTS: Normal sinus rhythm Normal ECG Compared to ECG 08/13/2024 13:50:03 Myocardial infarct finding no longer present Electronically Signed On 08-20-24 12:31:57 CDT by Vicente Gaming
--- NOTE | 2024-08-20 12:48 | EKG ---
Test Date: 2024-08-13 Test Time: 13:50:03 Roll Skinner: PH MEASUREMENT RESULTS: Intervals: Rate: 78 KS: 196 QRSD: 76 QT: 396 QTc: 451 [place]: P: 46 KS: 196 QRS: 30 T: 47 INTERPRETIVE STATEMENTS: Normal sinus rhythm Septal infarct, age undetermined Abnormal ECG Compared to ECG 12/17/2022 16:00:08 Myocardial infarct finding now present Electronically Signed On 08-20-24 12:32:32 CDT by Vicente Gaming
== END 2024-08-14 13:21 | disposition home or self-care (01) ==
LOC: ER 13:28 → ERHOLD 15:33 → 2ND 17:23
PROVIDERS: ADMIT Hospitalist; ATTEND Hospitalist
DX: R07.9 Chest pain, unspecified (principal); I25.10 Atherosclerotic heart disease of native coronary artery without angina pectoris; I10 Essential (primary) hypertension; E78.5 Hyperlipidemia, unspecified; E03.9 Hypothyroidism, unspecified; E78.00 Pure hypercholesterolemia, unspecified; K21.9 Gastro-esophageal reflux disease without esophagitis; B02.9 Zoster without complications; Z95.5 Presence of coronary angioplasty implant and graft; Z79.82 Long term (current) use of aspirin
CPT/HCPCS: 93005 ×2; 85025 ×2; 80048 ×2; 36415; 83735; 85610; 82947; 80076; 84484 ×3; 83880; 71045; 99285; J1650; J2270; G0378 ×3

== ENCOUNTER 2024-12-23 05:37 | Inpatient (IN) | payer OTHER ==
[2024-12-23] MEDS ORDERED: HEPARIN/D5W 25,000 UNIT/500 ML BAG IV ONE (05:51)
[2024-12-23] MEDS ORDERED: MORPHINE 4 MG/ML SYR ONE (05:51)
[2024-12-23] MEDS ORDERED: ONDANSETRON 4 MG/2 ML VIAL ONE ×2 (05:51→06:12)
[2024-12-23 05:57] LABS: Absolute Lymphocytes (CBC) 2.1 K/uL (0.7-4.9); Hematocrit 41.2 % (36.0-45.0); Hemoglobin 14.1 g/dL (12.0-15.0); MCH 31.6 pg (27.0-35.0); MCHC 34.2 g/dL (32.0-36.0); MCV 92.4 fL (80-100); MPV 6.9 fL (7.6-11.3); Nucleated RBC Absolute Count 0.0 (0-0); Nucleated Red Blood Cells % 0.1 % (0-0); RBC Red Blood Cell Count 4.45 M/uL (3.86-4.86); White Blood Count 7.10 thou/uL (4.3-10.9)
[2024-12-23] MEDS ORDERED: HEPARIN 5000 UNIT/ML 1 ML VIAL ONE (05:58)
[2024-12-23] MEDS ORDERED: MORPHINE 2 MG/ML SYR ONE (06:12)
[2024-12-23 06:17] LABS: ALT/SGPT 29.0 U/L (13-56); AST/SGOT 26.0 U/L (15-37); Albumin 3.1 g/dL (3.4-5.0); Albumin/Globulin Ratio 0.7 (1.1-1.8); Alkaline Phosphatase 86.0 U/L (45-117); Anion Gap 10.1 mEq/L (5.0-15.0); BUN Blood Urea Nitrogen 28.0 mg/dL (7-18); Bilirubin Indirect, Calculated 1.0 mg/dL (0.2-0.8); Globulin 4.2 g/dL (2.3-3.5); Glucose Level 106.0 mg/dL (74-106); Potassium 3.1 mEq/L (3.5-5.1); Troponin High Sensitivity 6.8 pg/mL (<58.9)
[2024-12-23] MEDS ORDERED: LORazepam 2 MG/ML VIAL ONE (06:25)
[2024-12-23 06:35] LABS: Thyroid Stimulating Hormone 3.2 uIU/mL (0.358-3.740)
--- NOTE | 2024-12-23 07:34 | RAD REPORT ---
EXAM: Chest Abdomen Pelvis W Cont CLINICAL INDICATION: Female, 79 years upper abdominal pain TECHNIQUE: CT chest, abdomen and pelvis was performed, with IV contrast, as per department protocol. Axial, sagittal and coronal reconstructions were obtained. One or more of the following dose reduction techniques were used: Automated exposure control, adjustment of the mA and/or kV according to the patient size, and/or iterative reconstruction. Unless otherwise specified, incidental findings do not require dedicated imaging follow-up. [id number]. COMPARISON: No prior exams FINDINGS: ---THORAX--- LOWER NECK AND CHEST WALL: Visualized thyroid gland and soft tissues are normal. MEDIASTINUM AND LYMPH NODES: No mediastinal mass or fluid collection. Normal size mediastinal, hilar, and axillary lymph nodes. Large hiatal hernia. THORACIC AORTA: No thoracic aortic aneurysm. Atherosclerotic changes are present. PULMONARY ARTERIES: Caliber is within normal limits. No pulmonary emboli identified. HEART: Normal heart size. Severe coronary artery calcifications.No significant pericardial effusion. Aortic valve calcifications. LUNGS AND AIRWAYS: Airways are clear. No evidence of airspace or interstitial process. No suspicious and/or stable pulmonary nodules. PLEURA: No pleural effusion. No pneumothorax. ---ABDOMEN/PELVIS--- UPPER GI: Wall thickening and stranding at the first portion of the duodenum as well as at the gastri c antrum. LIVER: No significant focal abnormality. GALLBLADDER/BILE DUCTS: Cholecystectomy. Mild extra-hepatic biliary ductal dilatation is likely relat ed to the post-cholecystectomy state. Consider correlating with LFT's.? PANCREAS: No mass, ductal dilation, or karly-pancreatic fluid. SPLEEN: Unremarkable. ADRENALS: No adrenal masses. KIDNEYS AND URETERS: No hydronephrosis.No suspicious renal mass.No renal calculi.No ureteral calculi. ABDOMINAL AORTA AND OTHER VESSELS: Moderate atherosclerotic changes without aortic aneurysm. Infraren al abdominal aorta measures 2.17. PERITONEUM: No abnormal free fluid. No free air. LYMPH NODES: No pathologic lymphadenopathy. ABDOMINAL WALL: Small fat containing umbilical hernia. SMALL BOWEL/COLON: Small bowel has normal course and caliber. No colonic wall thickening or pericolon ic inflammatory changes.Normal appendix. Moderate diverticulosis without diverticulitis. URINARY BLADDER: Underdistended but grossly unremarkable. REPRODUCTIVE ORGANS: No pathologic process. ---COMBINED--- MUSCULOSKELETAL: Multilevel degenerative changes in the spine. No acute fracture. ADDITIONAL FINDINGS: None. IMPRESSION: Wall thickening and mild edema around the first portion of the duodenum and to a lesser extent gastri c antrum concerning for possible underlying peptic ulcer disease. No perforation. Endoscopy could better evaluate.
--- NOTE | 2024-12-23 07:38 | RAD REPORT ---
EXAM: Chest Single View HISTORY: 79 years Female CHEST PAIN COMPARISON: 10/09/2024 FINDINGS: LUNGS/PLEURA: The lungs are clear. No pleural effusions or pneumothorax. No pulmonary edema. CARDIAC/MEDIASTINUM: The cardiac silhouette is within normal limits. Moderate hiatal hernia. UPPER ABDOMEN: No significant abnormality. BONES: No acute abnormality. LINES/TUBES/OTHER: N/A IMPRESSION: No evidence of acute cardiopulmonary disease.
--- NOTE | 2024-12-23 07:51 | ER ---
Nurse's Notes [facility] Name: Viviana Alarcon Age: 79 yrs Sex: Female : 1945 Arrival Date: 12/23/2024 Time: 05:37 Bed 5 Private MD: Diagnosis: Chest pain, peptic ulcer disease Presentation: 12/23 05:45 Chief complaint: EMS states: chest pain that started around 9-10 last night. Reports cp4 taking 2-3 nitro SL. EMS gave 324 mg ASA and 250 mL bolus. 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 Coronavirus screen: Client denies travel out of the [place] in the last 14 days. At this time, the client does not indicate any symptoms associated with coronavirus-19. Ebola Screen: Patient negative for fever greater than or equal to 101.5 degrees Fahrenheit, and additional compatible Ebola Virus Disease symptoms Patient denies exposure to infectious person. Patient denies travel to an Ebola-affected area in the 21 days before illness onset. No symptoms or risks identified at this time. Initial Sepsis Screen: Does the patient meet any 2 criteria? RR > 20 per min. No. Patient's initial sepsis screen is negative. Does the patient have a suspected source of infection? No. Patient's initial sepsis screen is negative. Risk Assessment: Do you want to hurt yourself or someone else? Patient reports no desire to harm self or others. Onset of symptoms was December 22, 2024 at 21:00. 05:45 Method Of Arrival: EMS: [facility] 05:45 Acuity: EDVIN 3 cp4 Triage Assessment: 05:48 General: Appears in no apparent distress. uncomfortable, Behavior is calm, cooperative, cp4 appropriate for age. Pain: Complains of pain in chest Pain radiates to back Pain currently is 9 out of 10 on a pain scale. EENT: No signs and/or symptoms were reported regarding the EENT system. Neuro: Level of Consciousness is awake, alert, obeys commands, Oriented to person, place, time, situation. Cardiovascular: Reports chest pain, Patient's skin is warm and dry. Rhythm is sinus bradycardia. Respiratory: Airway is patent Respiratory effort is even, unlabored. GI: No signs and/or symptoms were reported involving the gastrointestinal system. : No signs and/or symptoms were reported regarding the genitourinary system. Derm: No signs and/or symptoms reported regarding the dermatologic system. Musculoskeletal: No signs and/or symptoms reported regarding the musculoskeletal system. Historical: - Allergies: 05:48 codeine sulfate; cp4 - Home Meds: 05:48 alendronate 70 mg Oral tab 1 tab daily [Active]; atorvastatin 40 mg Oral tab 1 tab once cp4 daily [Active]; clopidogrel 75 mg Oral tab 1 tab once daily [Active]; famotidine 20 mg Oral tab 1 tab once daily [Active]; Hydrochlorothiazide Oral [Active]; levothyroxine 50 mcg cap 1 cap once daily [Active]; metoprolol tartrate 25 mg Oral tab 1 tab 2 times per day [Active]; - PMHx: 05:48 acid reflux; Hypercholesterolemia; Hypertensive disorder; Thyroid disfunction; cp4 - PSHx: 05:48 Jose wrist sx; cardiac stent; Cholecystectomy; Ligation of fallopian tube; cp4 - Immunization history:: Adult Immunizations up to date. - Infectious Disease History:: Denies. - Social history:: Smoking status: Patient denies any tobacco usage or history of. - Family history:: not pertinent. Screenin:52 [facility] ED Fall Risk Assessment (Adult) History of falling in the last 3 months, cp4 including since admission No falls in past 3 months (0 pts) Confusion or Disorientation No (0 pts) Intoxicated or Sedated No (0 pts) Impaired Gait No (0 pts) Mobility Assist Device Used No (0 pt) Altered Elimination No (0 pt) Score/Fall Risk Level 0 - 2 = Low Risk Oriented to surroundings, Maintained a safe environment, Assessed \T\ reinforced patient's understanding of fall precautions, Hourly rounding (assess needs \T\ fall precautionary measures) done. Abuse screen: Denies threats or abuse. Denies injuries from another. Nutritional screening: No deficits noted. Tuberculosis screening: No symptoms or risk factors identified. Never had TB. Assessment: 05:52 Reassessment: No changes from previously documented assessment. Pain: Pain began 1 day cp4 ago. 07:10 General: Appears in no apparent distress. uncomfortable, Behavior is cooperative, jl7 appropriate for age, drowsy. Pain: Denies pain. Pain currently is 0 out of 10 on a pain scale. Neuro: Bishop Agitation-Sedation Scale (RASS): -1 Drowsy Level of Consciousness is awake, obeys commands, Oriented to person, place, time, situation. Cardiovascular: Patient's skin is warm and dry. Respiratory: Airway is patent Respiratory effort is even, unlabored, Respiratory pattern is regular, symmetrical. Derm: Skin is pink, warm \T\ dry. 07:10 Reassessment: Dr. 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 Heparin drip discontinued at this time. 07:33 Reassessment: Per Dr Merchant we will not be restarting heparin. jl7 Vital Signs: 05:45 BP 128 / 72; Pulse 57; Resp 26; Temp 96.5; Pulse Ox 98% ; Weight 63.5 kg; Height 5 ft. cp4 2 in. ; Pain 9/10; 05:54 Weight 66.41 kg; cp4 06:58 BP 117 / 58; Pulse 81; Resp 14 S; kd3 07:06 Pain 0/10; jl7 07:22 BP 115 / 59; Pulse 55; Resp 17; Temp 97; Pulse Ox 98% ; Pain 0/10; jl7 09:21 BP 92 / 57; Pulse 52; Resp 14; Pulse Ox 99% ; jl7 05:45 Body Mass Index 25.61 (66.41 kg, 157.48 cm) cp4 05:45 Pain Scale: Adult cp4 07:06 Pain Scale: Adult jl7 07:22 Pain Scale: Adult jl7 Jsesee Coma Score: 06:31 Eye Response: spontaneous(4). Motor Response: obeys commands(6). Verbal Response: sp4 oriented(5). Total: 15. ED Course: 05:37 Patient arrived in ED. rv1 05:45 Tarah Conde is Primary Nurse. cp4 05:47 Dom Silverio MD is Attending Physician. sp4 05:47 EKG done, by ED staff. kd3 05:48 Triage completed. cp4 05:48 Maintain EMS IV. Dressing intact. Good blood return noted. Site clean \T\ dry. Gauge \T\ vc 1 site: 18G Right AC. 05:48 Arm band placed on right wrist. Patient placed in an exam room, on a stretcher. cp4 05:52 No provider procedures requiring assistance completed. Patient maintains SpO2 cp4 saturation greater than 95% on room air. 05:52 Bed in low position. Call light in reach. Side rails up X2. Client placed on continuous cp4 cardiac and pulse oximetry monitoring. NIBP monitoring applied. finish specialist on. Pulse ox on. NIBP on. 06:02 Ptt, Activated Sent. kd3 06:02 Inserted saline lock: 20 gauge in left forearm, using aseptic technique. Blood kd3 collected. Flushed with 10 mL NS. 06:29 XRAY Chest (1 view) In Process Unspecified. EDMS 07:00 CT Chest, Abdomen, Pelvis - W/Contrast In Process Unspecified. EDMS 07:14 Attending Physician role handed off by Dom Silverio MD sp3 07:14 Danielle Merchant MD is Attending Physician. sp3 07:50 Andrew Noel MD is Hospitalizing Provider. sp3 09:22 Patient admitted, IV remains in place. intact, No redness/swelling at site. jl7 09:22 Provided Education on: admit. jl7 Administered Medications: 05:56 CANCELLED (Physician Discretion): [id number] units IV at bolus once sp4 06:02 Drug: morphine IVP or IV 4 mg IVP once over 4 mins Route: IVP; Infused Over: 4 mins; kd3 Site: right antecubital; 07:00 Follow up: Response: No adverse reaction; Pain is decreased; RASS: Drowsy (-1) jl7 06:03 Drug: Ondansetron IVP 4 mg IVP once; over 2 minutes Route: IVP; Site: right antecubital;kd3 07:07 Follow up: Response: No adverse reaction jl7 06:03 Drug: Heparin ([place] Drip) 12 units/kg/[place] - ([place] [address] units, D5W IV 500 ml) IV at kd3 calculated rate Per protocol; Max initial rate 1000 units/hr {Co-Signature: cp4 (Tarah Conde).} Route: IV; Rate: calculated rate; Site: left forearm; 07:06 Follow up: Response: No adverse reaction; IV Status: Order to discontinue infusion jl7 06:03 Drug: HEParin IV 4000 units IV at bolus once {Co-Signature: cp4 (Tarah Conde).} kd3 Route: IV; Rate: bolus; Site: left forearm; 06:05 Follow up: Response: No adverse reaction; IV Status: Completed infusion jl7 06:21 Drug: morphine IVP or IV 2 mg IVP once over 4 mins Route: IVP; Infused Over: 4 mins; zm Site: right antecubital; 07:06 Follow up: Pain 0/10 Adult; Response: No adverse reaction; Pain is decreased; RASS: jl7 Drowsy (-1) 06:22 Drug: Ondansetron IVP 4 mg IVP once; over 2 minutes Route: IVP; Site: right antecubital;zm 07:06 Follow up: Response: No adverse reaction jl7 06:28 Drug: Ativan IVP 1 mg IVP once Route: IVP; Site: right antecubital; kd3 07:06 Follow up: Response: No adverse reaction; Marked relief of symptoms jl7 08:32 Drug: Pantoprazole IVP 40 mg IVP once Route: IVP; Site: right antecubital; jl7 09:23 Follow up: Response: No adverse reaction jl7 Medication: 05:52 VIS not applicable for this client. cp4 Outcome: 07:51 Decision to Hospitalize by Provider. sp3 09:22 Admitted to Med/surg accompanied by tech, via wheelchair, room 221, with chart, Report jl7 called to faxed 09:22 Condition: stable 09:22 Discharge instructions given to patient, family, Instructed on the need for admit, Demonstrated understanding of instructions, 09:22 Patient left the ED. jl7 Signatures: Dispatcher [employer] EDMS León Strong RN RN jl7 Danielle Merchant MD MD sp3 Jodee Mosquera RN RN kd3 Divine Nice RN RN vc1 Martinez, Zaina RN Rita Kumar Sergey, MD MD sp4 Tarah Conde cp4 Tarah Conde
--- NOTE | 2024-12-23 07:51 | EDPHYS ---
Physician Documentation [facility] Name: Viviana Alarcon Age: 79 yrs Sex: Female : 1945 Arrival Date: 12/23/2024 Time: 05:37 Bed 5 Private MD: ED Physician Danielle Merchant HPI: 12/23 05:47 This 79 yrs old Female presents to ER via Unassigned with complaints of Chest sp4 Pain. 05:47 79-year-old female presents with moderate to severe chest pain. sp4 05:57 Medical history includes hypertension hypercholesterolemia GERD CAD including 9 stents..sp4 05:57 [facility] report from 10/07/2024 - Findings: 1. Left main is normal. 2. LAD: Widely patent sp4 [id number] LAD stent. Rest of the LAD is normal, normal diagonal branches. 3. Left circumflex has high OM with patent stent. The stent has 40% in-stent restenosis and the rest of the left circumflex is with luminal irregularities. 4. RCA: Patent proximal stent otherwise normal. 5. Normal LVEDP at 5 mmHg. Conclusion: Moderate coronary artery disease with widely patent LAD, left circumflex, and RCA stents. OPERATIVE REPORT Plan - Medical management. . 06:30 On further evaluation patient reported pain in his also in upper abdomen towards the sp4 right. She has history of cholecystectomy.. Historical: - Allergies: 05:48 codeine sulfate; cp4 - Home Meds: 05:48 alendronate 70 mg Oral tab 1 tab daily [Active]; atorvastatin 40 mg Oral tab 1 tab once cp4 daily [Active]; clopidogrel 75 mg Oral tab 1 tab once daily [Active]; famotidine 20 mg Oral tab 1 tab once daily [Active]; Hydrochlorothiazide Oral [Active]; levothyroxine 50 mcg cap 1 cap once daily [Active]; metoprolol tartrate 25 mg Oral tab 1 tab 2 times per day [Active]; - PMHx: 05:48 acid reflux; Hypercholesterolemia; Hypertensive disorder; Thyroid disfunction; cp4 - PSHx: 05:48 Jose wrist sx; cardiac stent; Cholecystectomy; Ligation of fallopian tube; cp4 - Immunization history:: Adult Immunizations up to date. - Infectious Disease History:: Denies. - Social history:: Smoking status: Patient denies any tobacco usage or history of. - Family history:: not pertinent. ROS: 06:31 Constitutional: Negative for fever, chills, and weight loss, positive for acute lower sp4 chest pain upper abdominal pain 06:31 All other systems are negative, Exam: 06:31 Constitutional: This is a well developed, well nourished patient who is awake, alert, sp4 and in no acute distress. Head/Face: Normocephalic, atraumatic. Eyes: Pupils equal round and reactive to light, extra-ocular motions intact. Lids and lashes normal. Conjunctiva and sclera are not injected. Cornea within normal limits. Periorbital areas with no swelling, redness, or edema. ENT: Nares patent. No nasal discharge, no septal abnormalities noted. Tympanic membranes are normal and external auditory canals are clear. Oropharynx with no redness, swelling, or masses, exudates, or evidence of obstruction, uvula midline. Mucous membranes moist. Neck: Trachea midline, no thyromegaly or masses palpated, and no cervical lymphadenopathy. Supple, full range of motion without nuchal rigidity, or vertebral point tenderness. Chest/axilla: Normal chest wall appearance and motion. Nontender with no deformity. No lesions are appreciated. Cardiovascular: Regular rate and rhythm with a normal S1 and S2. No gallops, murmurs, or rubs. No pulse deficits. Respiratory: Lungs have equal breath sounds bilaterally, clear to auscultation and percussion. No rales, rhonchi or wheezes noted. No increased work of breathing, no retractions or nasal flaring. Abdomen/GI: Soft, with normal bowel sounds. No distension or tympany. No guarding or rebound. No evidence of tenderness throughout. Back: No spinal tenderness. No costovertebral tenderness. Skin: Warm, dry with normal turgor. Normal color with no rashes, no lesions, and no evidence of cellulitis. MS/ Extremity: Pulses equal, no cyanosis. Neurovascular intact. Full, normal range of motion. Neuro: Awake and alert, GCS 15, oriented to person, place, time, and situation. Cranial nerves II-XII grossly intact. Motor strength 5/5 in all extremities. Sensory grossly intact. Psych: Awake, alert, with orientation to person, place and time. Behavior, mood, and affect are within normal limits 06:31 ECG was reviewed by the Attending Physician. EKG at 544, sinus bradycardia rate 58 otherwise normal Vital Signs: 05:45 BP 128 / 72; Pulse 57; Resp 26; Temp 96.5; Pulse Ox 98% ; Weight 63.5 kg; Height 5 ft. cp4 2 in. ; Pain 9/10; 05:54 Weight 66.41 kg; cp4 06:58 BP 117 / 58; Pulse 81; Resp 14 S; kd3 07:06 Pain 0/10; jl7 07:22 BP 115 / 59; Pulse 55; Resp 17; Temp 97; Pulse Ox 98% ; Pain 0/10; jl7 09:21 BP 92 / 57; Pulse 52; Resp 14; Pulse Ox 99% ; jl7 05:45 Body Mass Index 25.61 (66.41 kg, 157.48 cm) cp4 05:45 Pain Scale: Adult cp4 07:06 Pain Scale: Adult jl7 07:22 Pain Scale: Adult jl7 Jessee Coma Score: 06:31 Eye Response: spontaneous(4). Motor Response: obeys commands(6). Verbal Response: sp4 oriented(5). Total: 15. MDM: 06:39 Medical Screening Exam initiated sp4 07:12 Differential diagnosis: acute pericarditis, anxiety, coronary artery disease chest wall sp4 pain, congestive heart failure esophagitis, gastritis. HEART Score: History: Moderately Suspicious (1), ECG: Normal (0), Age: > or = 65 years (2), Risk Factors: > or = 3 Risk factors for atherosclerotic disease (2), Troponin: < or = 1 x Normal Limit (0), Total Score = 5. The patient was not given aspirin in the Emergency Department. Administered by EMS. Data reviewed: vital signs, nurses notes, EMS record, lab test result(s), EKG, radiologic studies, CT scan, plain films. Transition of care: After a detail discussion of the patient's case, care is transferred to Danielle Merchant MD. 07:19 ED course: Patient signed out to me by nighttime physician for reevaluation, follow-up sp3 on remainder of outstanding workup and disposition. Patient is a 79-year-old female with chest and abdominal pain with differential diagnosis acute coronary syndrome, pancreatitis, biliary pathology, gastritis, among others. There is a CT scan of the chest abdomen and pelvis pending. Final disposition probable admission given cardiac history.. 07:49 ED course: CT chest abdomen pelvis negative except for notation of peptic ulcer sp3 disease. Troponin is negative. Given history, we will still place patient in observation. I have discussed this with the inpatient team who will be taking over.. 12/23 05:47 Order name: Basic Metabolic Panel; Complete Time: 06:30 vc1 12/23 05:47 Order name: CBC with Diff; Complete Time: 06:30 vc1 12/23 05:47 Order name: Troponin HS; Complete Time: 06:30 vc1 12/23 05:48 Order name: LFT's; Complete Time: 06:30 sp4 12/23 05:56 Order name: Ptt, Activated; Complete Time: 06:45 sp4 12/23 05:56 Order name: CK; Complete Time: 06:39 sp4 12/23 05:56 Order name: TSH; Complete Time: 06:39 sp4 12/23 07:12 Order name: Lipase; Complete Time: 07:39 sp4 12/23 08:10 Order name: CBC with Automated Diff EDMS 12/23 08:10 Order name: CBC with Automated Diff EDMS 12/23 08:10 Order name: CBC with Automated Diff EDMS 12/23 08:10 Order name: CBC with Automated Diff EDMS 12/23 08:10 Order name: Comprehensive Metabolic Panel EDMS 12/23 08:10 Order name: Comprehensive Metabolic Panel EDMS 12/23 08:10 Order name: Comprehensive Metabolic Panel EDMS 12/23 08:10 Order name: Comprehensive Metabolic Panel EDMS 12/23 08:10 Order name: Troponin High Sensitivity EDMS 12/23 08:10 Order name: Troponin High Sensitivity EDMS 12/23 08:10 Order name: Troponin High Sensitivity EDMS 12/23 05:47 Order name: XRAY Chest (1 view); Complete Time: 07:39 vc1 12/23 06:29 Order name: CT Chest, Abdomen, Pelvis - W/Contrast; Complete Time: 07:39 sp4 12/23 05:47 Order name: Cardiac monitoring; Complete Time: 05:47 vc1 12/23 05:47 Order name: EKG - Nurse/Tech; Complete Time: 05:47 vc1 12/23 05:47 Order name: IV Saline Lock; Complete Time: 05:47 12/23 05:47 Order name: Labs collected and sent; Complete Time: 05:47 12/23 05:47 Order name: O2 Per Protocol; Complete Time: 05:47 12/23 05:47 Order name: O2 Sat Monitoring; Complete Time: 05:47 12/23 07:04 Order name: Misc. Order: Discontinue heparin at this time ; Complete Time: 07:06 sp4 EC:44 Rate is 58 beats/min. Rhythm is regular, Sinus bradycardia. QRS [place] is Normal. [place] sp4 interval is normal. QRS interval is normal. QT interval is normal. No Q waves. T waves are Normal. No ST changes noted. Clinical impression: No evidence of ischemia. Interpreted by me. Reviewed by me. Administered Medications: 05:56 CANCELLED (Physician Discretion): [id number] units IV at bolus once sp4 06:02 Drug: morphine IVP or IV 4 mg IVP once over 4 mins Route: IVP; Infused Over: 4 mins; kd3 Site: right antecubital; 07:00 Follow up: Response: No adverse reaction; Pain is decreased; RASS: Drowsy (-1) jl7 06:03 Drug: Ondansetron IVP 4 mg IVP once; over 2 minutes Route: IVP; Site: right antecubital;kd3 07:07 Follow up: Response: No adverse reaction jl7 06:03 Drug: Heparin ([place] Drip) 12 units/kg/[place] - ([place] [address] units, D5W IV 500 ml) IV at kd3 calculated rate Per protocol; Max initial rate 1000 units/hr {Co-Signature: cp4 (Tarah Conde).} Route: IV; Rate: calculated rate; Site: left forearm; 07:06 Follow up: Response: No adverse reaction; IV Status: Order to discontinue infusion jl7 06:03 Drug: HEParin IV 4000 units IV at bolus once {Co-Signature: cp4 (Tarah Conde).} kd3 Route: IV; Rate: bolus; Site: left forearm; 06:05 Follow up: Response: No adverse reaction; IV Status: Completed infusion jl7 06:21 Drug: morphine IVP or IV 2 mg IVP once over 4 mins Route: IVP; Infused Over: 4 mins; zm Site: right antecubital; 07:06 Follow up: Pain 0/10 Adult; Response: No adverse reaction; Pain is decreased; RASS: jl7 Drowsy (-1) 06:22 Drug: Ondansetron IVP 4 mg IVP once; over 2 minutes Route: IVP; Site: right antecubital;zm 07:06 Follow up: Response: No adverse reaction jl7 06:28 Drug: Ativan IVP 1 mg IVP once Route: IVP; Site: right antecubital; kd3 07:06 Follow up: Response: No adverse reaction; Marked relief of symptoms jl7 08:32 Drug: Pantoprazole IVP 40 mg IVP once Route: IVP; Site: right antecubital; jl7 09:23 Follow up: Response: No adverse reaction jl7 Disposition Summary: 12/23/24 07:51 Hospitalization Ordered Notes: Hospitalization Status: Observation sp3 Provider: Andrew Noel sp3 Location: Telemetry/MedSurg (observation) sp3 Condition: Stable sp3 Problem: an acute exacerbation sp3 Symptoms: have worsened sp3 Bed/Room Type: Standard sp3 Room Assignment: 221(12/23/24 08:45) bd Diagnosis - Chest pain, peptic ulcer disease sp3 Forms: - Medication Reconciliation Form sp3 - SBAR form sp3 - Leadership Thank You Letter sp3 Signatures: Dispatcher [employer] EDMS Dara Reid Lee, FNP-C [employer]-Cla1 León Strong RN RN jl7 Danielle Merchant MD MD sp3 Jodee Mosquera RN RN kd3 Divine Nice RN RN vc1 Annelise Nails RN RN zm Potepalov, Sergey, MD MD sp4 Tarah Conde cp4 Tarah Conde cp4 Corrections: (The following items were deleted from the chart) 05:48 05:48 BASIC METABOLIC PANEL+C.LAB.BRZ ordered. EDMS EDMS 05:48 05:48 CBC+H.LAB.BRZ ordered. EDMS EDMS 05:48 05:48 Troponin High Sensitivity+C.LAB.BRZ ordered. EDMS EDMS 05:48 05:48 Chest Single View+RAD.RAD.BRZ ordered. EDMS EDMS 05:48 05:48 HEPATIC FUNCTION+C.LAB.BRZ ordered. EDMS EDMS 05:56 05:[place] [address] units IV at bolus once ordered. sp4 sp4 05:56 05:56 PTT, ACTIVATED+COAG.LAB.BRZ ordered. EDMS EDMS 05:56 05:56 CREATINE PHOSPHOKINASE+C.LAB.BRZ ordered. EDMS EDMS 05:56 05:56 THYROID STIMULAT HORMONE+C.LAB.BRZ ordered. EDMS EDMS 06:30 06:30 Chest Abdomen Pelvis W Con+CT.RAD.BRZ ordered. EDMS EDMS 08:33 07:51 sp3 bd 08:45 08:33 413 bd bd
[2024-12-23] MEDS ORDERED: ONDANSETRON 4 MG/2 ML VIAL IV PRN (08:02)
[2024-12-23] MEDS ORDERED: SODIUM CHLORIDE 0.9% 10ML INJ IV PRN (08:02)
[2024-12-23] MEDS ORDERED: MORPHINE 2 MG/ML SYR IV PRN (08:02)
[2024-12-23] MEDS ORDERED: PANTOPRAZOLE 40 MG INJ ONE (08:12)
--- NOTE | 2024-12-23 09:52 | P.HP ---
Certification for Inpatient Patient admitted to: Observation With expected LOS: <2 Midnights Patient will require the following post-hospital care: None Practitioner: I am a practitioner with admitting privileges, knowledge of patient current condition, hospital course, and medical plan of care. Services: Services provided to patient in accordance with Admission requirements found in Title 42 Section 412.3 of the Code of Federal Regulations <YunielWalter Alonzo - Last Filed: 12/23/24 09:48> Patient History Date of Service: 12/23/24 Reason for admission: Chest pain History of Present Illness: 79-year-old female with history of CAD, GERD, hypertension, hyperlipidemia presents to the emergency department chief complaint of chest pain. She reports that she been having symptoms intermittently over the course of the last 2 weeks, she also had an episode of vomiting once over the course of the weekend. Today the pain was described as substernal radiating around the right side. Her pain has resolved at this time initial high sensitive troponin is normal at 6.8, EKG without any STEMI criteria patient had a recent coronary angiogram around 2- 1/2 months ago which showed moderate CAD with patent stents. CT of the chest abdomen pelvis was performed as well on admission given presence of epigastric discomfort. CT showed wall thickening and mild edema around the first portion of duodenum and to a lesser extent gastric antrum concerning for possible underlying peptic ulcer disease. No perforation. Endoscopy could evaluate better. Patient will be admitted for ACS rule out, evaluation from GI for possible peptic ulcer disease. - Past Medical/Surgical History Diabetic: No -: Hypertension -: Hyperlipidemia -: CAD -: Hypothyroidism -: Tubal ligation -: Appendectomy -: Cholecystectomy -: Bilateral wrist surgery -: Bone spur Psychosocial/ Personal History: Retired, lives with daughter - Family History Mother -: Liver disease Father -: Stroke - Social History Alcohol use: No CD- Drugs: No Caffeine use: No Place of Residence: Home <Walter Brice - Last Filed: 12/23/24 09:48> Date of Service: 12/23/24 <Andrew Noel - Last Filed: 12/30/24 00:42> Allergies codeine Adverse Reaction (Verified 10/03/24 13:31) Nausea/Vomiting Home Medications: Aspirin [Aspirin EC] 81 mg PO DAILY #90 11/28/20 Atorvastatin Calcium [Lipitor] 40 mg PO DAILY #30 tablet 11/28/20 Levothyroxine [Synthroid*] 0.05 mg PO [id number] tablet 11/28/20 Alendronate Sodium 70 mg PO DAILY 12/20/22 hydroCHLOROthiazide [Hydrodiuril*] 25 mg PO DAILY 12/20/22 Ranolazine [Ranolazine ER] 500 mg PO BID #60 tab 08/14/24 Valacyclovir HCl [Valacyclovir] 1,000 mg PO TID #21 tab 08/14/24 Ezetimibe 10 mg PO DAILY 12/23/24 Metoprolol Succinate 50 mg PO DAILY 12/23/24 Pantoprazole [Protonix Tab] 40 mg PO BID #60 tab 12/25/24 Review of Systems 10-point ROS is otherwise unremarkable Cardiovascular: Chest Pain <Walter Brice - Last Filed: 12/23/24 09:48> Physical Examination - Vital Signs Temperature: 96.5 F Blood Pressure: 128/72 Pulse: 57 Respirations: 26 - Physical Exam General: Alert, In no apparent distress, Oriented x3 HEENT: Atraumatic, PERRLA Neck: Supple, 2+ carotid pulse no bruit, No LAD Respiratory: Clear to auscultation bilaterally, Normal air movement Cardiovascular: Regular rate/rhythm, Normal S1 S2 Gastrointestinal: Normal bowel sounds, No tenderness Musculoskeletal: No tenderness Neurological: Normal gait, Normal speech, Normal strength at 5/5 x4 extr, Normal affect - Studies Laboratory Data (last 24 hrs) 12/23/24 12/23/24 12/23/24 06:00 05:47 05:47 WBC 7.10 Hgb 14.1 Hct 41.2 Plt Count 222 APTT 25.8 L Sodium Potassium BUN Creatinine Glucose Total Bilirubin AST ALT Alkaline Phosphatase Lipase 32 12/23/24 05:47 WBC Hgb Hct Plt Count APTT Sodium 138 Potassium 3.1 L BUN 28 H Creatinine 1.18 H Glucose 106 Total Bilirubin 1.3 H AST 26 ALT 29 Alkaline Phosphatase 86 Lipase <Walter Brice - Last Filed: 12/23/24 09:48> Assessment and Plan - Plan Assessment: Chest pain rule out ACS GERD/concern for peptic ulcer disease Hypertension Hyperlipidemia Hypothyroidism Plan: Chest pain rule out ACS GERD/concern for peptic ulcer disease Trend troponins, monitor telemetry, cardiology consultation GI consultation as well, twice daily PPI Reports has been out of her Protonix for about 3 weeks Unclear if she has ever had an EGD before but had a colonoscopy around 2 years ago Hypertension Hyperlipidemia Hypothyroidism Continue home medications when verified DVT PPX: Lovenox Code status: Full code Discharge Plan: Home Plan to discharge in: 24 Hours - Advance Directives Does patient have a Living Will: No Does patient have a Durable POA for Healthcare: No - Code Status/Comfort Care Code Status Assessed: Yes (Full code) Critical Care: No Time Spent Managing Pts Care (In Minutes): 70 <Walter Brice - Last Filed: 12/23/24 09:48> Date of Service: 12/23/24 Patient was seen and examined. Events of the last 24 hours have been noted. Spoke with with MEEK regarding patient's clinical picture after evaluating and examining the patient independently. I performed a substantial part of the MDM during this patient's care today. I personally made or approved the documented management plan and acknowledge its risk of complications. I agree with the findings and documentation provided in the MEEK's notes. <Andrew Noel - Last Filed: 12/30/24 00:42>
[2024-12-23] MEDS: NA CHLORIDE 0.9% 500 ML IV ONE (10:43)
[2024-12-23] MEDS: PROMETHAZINE 25 MG TABLET PO PRN (11:08)
--- NOTE | 2024-12-23 11:19 | P.CNS ---
Date of Consult: 12/23/24 Chief Complaint: Chest pain History of Present Illness: Patient with PMH of CAD s/p multiple stents placement, HTN, presented with upper abdominal pain, radiating to her back, denies chest pain, no palpitations, no syncope. Allergies codeine Adverse Reaction (Verified 10/03/24 13:31) Nausea/Vomiting Home medications list reviewed: Yes Home Medications: Aspirin [Aspirin EC] 81 mg PO DAILY #90 11/28/20 Atorvastatin Calcium [Lipitor] 40 mg PO DAILY #30 tablet 11/28/20 Levothyroxine [Synthroid*] 0.05 mg PO [id number] tablet 11/28/20 Alendronate Sodium 70 mg PO DAILY 12/20/22 Pantoprazole [Protonix Tab*] 40 mg PO DAILY 12/20/22 hydroCHLOROthiazide [Hydrodiuril*] 25 mg PO DAILY 12/20/22 Ranolazine [Ranolazine ER] 500 mg PO BID #60 tab 08/14/24 Valacyclovir HCl [Valacyclovir] 1,000 mg PO TID #21 tab 08/14/24 Ezetimibe 10 mg PO DAILY 12/23/24 Metoprolol Succinate 50 mg PO DAILY 12/23/24 - Past Medical/Surgical History Diabetic: No -: Hypertension -: Hyperlipidemia -: CAD -: Hypothyroidism -: Tubal ligation -: Appendectomy -: Cholecystectomy -: Bilateral wrist surgery -: Bone spur Psychosocial/ Personal History: Retired, lives with daughter - Family History Mother Medical History: Liver disease Father Medical History: Stroke - Social History Smoking Status: Unknown if ever smoked Alcohol use: No CD- Drugs: No Caffeine use: No Place of Residence: Home Review of Systems 10-point ROS is otherwise unremarkable Physical Examination Temp Pulse Resp BP Pulse Ox 97 F 52 14 92/57 L 92 12/23/24 10:04 12/23/24 10:05 12/23/24 10:12/23/24 10:12/23/24 09:55 General: Alert, In no apparent distress HEENT: Atraumatic, PERRLA, Mucous membr. moist/pink, EOMI, Sclerae nonicteric Neck: Supple, 2+ carotid pulse no bruit, No LAD, Without JVD or thyroid abnormality Respiratory: Clear to auscultation bilaterally, Normal air movement Cardiovascular: Regular rate/rhythm, Normal S1 S2 Gastrointestinal: Normal bowel sounds, No tenderness Musculoskeletal: No tenderness Integumentary: No rashes Neurological: Normal gait, Normal speech, Normal tone, Normal affect Lymphatics: No axilla or inguinal lymphadenopathy Laboratory Data (last 24 hrs) 12/23/24 12/23/24 12/23/24 06:00 05:47 05:47 WBC 7.10 Hgb 14.1 Hct 41.2 Plt Count 222 APTT 25.8 L Sodium Potassium BUN Creatinine Glucose Total Bilirubin AST ALT Alkaline Phosphatase Lipase 32 12/23/24 05:47 WBC Hgb Hct Plt Count APTT Sodium 138 Potassium 3.1 L BUN 28 H Creatinine 1.18 H Glucose 106 Total Bilirubin 1.3 H AST 26 ALT 29 Alkaline Phosphatase 86 Lipase - Problems (1) CAD (coronary artery disease) Current Visit: No Status: Acute Plan: patient had a recent coronary angiogram that shown patent stents chest pain is non cardiac Troponin negative x1, continue to trend for 3 sets continue ASA 81 mg daily (2) HTN (hypertension) Current Visit: No Status: Acute Plan: continue to monitor
[2024-12-23] MEDS: NA CHLORIDE 0.9% 1,000 ML ONE (11:25)
[2024-12-23] MEDS: ENOXAPARIN 40 MG/0.4 ML SQ SCH (11:27)
[2024-12-23] MEDS: METOCLOPRAMIDE 10 MG/2mL INJ IV SCH (12:26)
[2024-12-23] MEDS: PANTOPRAZOLE 40 MG INJ IVP SCH (21:55)
[2024-12-24 04:39] LABS: Absolute Lymphocytes (CBC) 1.5 K/uL (0.7-4.9); Hematocrit 38.6 % (36.0-45.0); Hemoglobin 13.4 g/dL (12.0-15.0); MCH 32.1 pg (27.0-35.0); MCHC 34.8 g/dL (32.0-36.0); MCV 92.4 fL (80-100); MPV 6.9 fL (7.6-11.3); Nucleated RBC Absolute Count 0.0 (0-0); Nucleated Red Blood Cells % 0.2 % (0-0); RBC Red Blood Cell Count 4.18 M/uL (3.86-4.86); White Blood Count 5.70 thou/uL (4.3-10.9)
[2024-12-24 04:45] LABS: ALT/SGPT 29.0 U/L (13-56); AST/SGOT 32.0 U/L (15-37); Albumin 2.9 g/dL (3.4-5.0); Albumin/Globulin Ratio 0.8 (1.1-1.8); Alkaline Phosphatase 88.0 U/L (45-117); Anion Gap 8.0 mEq/L (5.0-15.0); BUN Blood Urea Nitrogen 20.0 mg/dL (7-18); Globulin 3.8 g/dL (2.3-3.5); Glucose Level 96.0 mg/dL (74-106); Potassium 4.0 mEq/L (3.5-5.1)
--- NOTE | 2024-12-24 09:53 | P.PN ---
Date of Service: 12/24/24 Subjective: Some nausea and vomiting overnight No other acute events ROS: 10 point ROS as noted above, otherwise negative Physical exam GEN: Alert, oriented, NAD HEENT: Normal conjunctiva, sclera anicteric CV: Regular rate and rhythm, no edema Pulm: Nonlabored respirations on room air ABD: Soft, nontender, nondistended MSK: No joint tenderness Integumentary: No rashes Neuro: Normal speech, normal affect Vitals reviewed Assessment: Chest pain rule out ACS GERD/concern for peptic ulcer disease Hypertension Hyperlipidemia Hypothyroidism Plan: Chest pain rule out ACS GERD/concern for peptic ulcer disease Troponins negative x 3, doubt cardiac etiology of chest pain Had recent coronary angiogram with patent stents GI consultation as well, twice daily PPI Reports has been out of her Protonix for about 3 weeks Unclear if she has ever had an EGD before but had a colonoscopy around 2 years ago Possible EGD today with GI Hypertension Hyperlipidemia Hypothyroidism Continue home medications when verified DVT PPX: Lovenox Code status: Full code Discharge Plan: Home Plan to discharge in: 24 Hours Time Spent Managing Pts Care (In Minutes): 35 <Walter Brice - Last Filed: 12/24/24 09:52> Patient was seen and examined. Events of the last 24 hours have been noted. Spoke with with MEEK regarding patient's clinical picture after evaluating and examining the patient independently. I performed a substantial part of the MDM during this patient's care today. I personally made or approved the documented management plan and acknowledge its risk of complications. I agree with the findings and documentation provided in the MEEK's notes. <Andrew Noel - Last Filed: 12/30/24 01:16>
--- NOTE | 2024-12-24 10:01 | P.PN ---
Subjective Date of Service: 12/24/24 Chief Complaint: Chest pain Subjective: No new changes, No C/O voiced, Tolerating diet, Improving Review of Systems 10-point ROS is otherwise unremarkable Physical Examination - Vital Signs Temperature: 98.0 F Blood Pressure: 130/61 Pulse: 52 Respirations: 16 Pulse Ox (%): 96 - Physical Exam General: Alert, In no apparent distress HEENT: Atraumatic, PERRLA, EOMI Neck: Supple, JVD not distended Respiratory: Clear to auscultation bilaterally, Normal air movement Cardiovascular: Regular rate/rhythm, Normal S1 S2 Gastrointestinal: Normal bowel sounds, No tenderness Musculoskeletal: No tenderness Integumentary: No rashes Neurological: Normal speech, Normal tone, Normal affect Lymphatics: No axilla or inguinal lymphadenopathy - Studies Medications List Reviewed: Yes Assessment And Plan - Current Problems (Diagnosis) (1) CAD (coronary artery disease) Current Visit: No Status: Acute Plan: patient had a recent coronary angiogram that shown patent stents chest pain is non cardiac Troponin negative x3 continue ASA 81 mg daily No further inpatient cardiac work up needed continue to follow up with cardiology as outpatient Cardiology will sign off, please call with any questions. (2) HTN (hypertension) Current Visit: No Status: Acute Plan: continue to monitor BP has been normal off medications, if stay normal then ask her to hold outpatient medications on discharge and will consider resuming once she follow up with cardiology.
[2024-12-25 04:47] LABS: Absolute Lymphocytes (CBC) 1.6 K/uL (0.7-4.9); Hematocrit 41.4 % (36.0-45.0); Hemoglobin 14.3 g/dL (12.0-15.0); MCH 32.1 pg (27.0-35.0); MCHC 34.5 g/dL (32.0-36.0); MCV 93.0 fL (80-100); MPV 6.8 fL (7.6-11.3); Nucleated RBC Absolute Count 0.0 (0-0); Nucleated Red Blood Cells % 0.1 % (0-0); RBC Red Blood Cell Count 4.45 M/uL (3.86-4.86); White Blood Count 5.10 thou/uL (4.3-10.9)
[2024-12-25 05:03] LABS: ALT/SGPT 29.0 U/L (13-56); AST/SGOT 20.0 U/L (15-37); Albumin 2.9 g/dL (3.4-5.0); Albumin/Globulin Ratio 0.7 (1.1-1.8); Alkaline Phosphatase 92.0 U/L (45-117); Anion Gap 7.2 mEq/L (5.0-15.0); BUN Blood Urea Nitrogen 15.0 mg/dL (7-18); Globulin 4.0 g/dL (2.3-3.5); Glucose Level 90.0 mg/dL (74-106); Potassium 4.2 mEq/L (3.5-5.1)
[2024-12-25 07:49] VITALS: BMI 26.7
[2024-12-25] MEDS: Ringers Lactate 1,000 ML IV ONE (08:22)
--- NOTE | 2024-12-25 08:33 | P.PN ---
Date of Service: 12/25/24 Subjective: Improvement in nausea/vomiting Plan for EGD today ROS: 10 point ROS as noted above, otherwise negative Physical exam GEN: Alert, oriented, NAD HEENT: Normal conjunctiva, sclera anicteric CV: Regular rate and rhythm, no edema Pulm: Nonlabored respirations on room air ABD: Soft, nontender, nondistended MSK: No joint tenderness Integumentary: No rashes Neuro: Normal speech, normal affect Vitals reviewed Assessment: Chest pain rule out ACS GERD/concern for peptic ulcer disease Hypertension Hyperlipidemia Hypothyroidism Plan: Chest pain rule out ACS GERD/concern for peptic ulcer disease Troponins negative x 3, doubt cardiac etiology of chest pain Had recent coronary angiogram with patent stents GI consultation as well, twice daily PPI Reports has been out of her Protonix for about 3 weeks Unclear if she has ever had an EGD before but had a colonoscopy around 2 years ago Possible EGD today with GI Hypertension Hyperlipidemia Hypothyroidism Continue home medications when verified DVT PPX: Lovenox Code status: Full code Discharge Plan: Home Plan to discharge in: 24 Hours Time Spent Managing Pts Care (In Minutes): 35 <Walter Brice - Last Filed: 12/25/24 08:33> Patient was seen and examined. Events of the last 24 hours have been noted. Spoke with with MEEK regarding patient's clinical picture after evaluating and examining the patient independently. I performed a substantial part of the MDM during this patient's care today. I personally made or approved the documented management plan and acknowledge its risk of complications. I agree with the findings and documentation provided in the MEEK's notes. <Andrew Noel - Last Filed: 12/30/24 12:39>
[2024-12-25 11:32] VITALS: O2SAT 99
--- NOTE | 2024-12-25 14:02 | RAD REPORT ---
Single CONTRAST UPPER GI HISTORY: severely twisted stomach on EGD, RUQ pain TECHNIQUE: Single contrast UGI was performed. Fluoroscopic spot films were obtained. FINDINGS: Moderate sliding-type hiatal hernia. The esophagus takes a hairpin turn at the GE junction which is a carlyle the level of the diaphragm. The stomach is partially folded on itself with indentation along the lesser curvature which is above the diaphragms well. No evidence of volvulus. There appears to be some thickening and narrowing of the stomach at the region of the gastric antrum. Fluoroscopy time: 1 minute 20 seconds IMPRESSION: Moderate hiatal hernia. The herniated stomach folds on itself with GE junction located at the normal location of the esophageal hiatus. This results in a hairpin turn. No evidence of overt volvulus. There was good movement of contrast from the esophagus into the stomach and into the duodenum without fracture. Narrowing at the gastric antrum may be related to known inflammation.
--- NOTE | 2024-12-25 15:32 | P.DS ---
Admission Date: 12/25/24 Discharge Date: 12/25/24 Reason for Admission: Chest pain Brief History of Present Illness: 79-year-old female with history of CAD, GERD, hypertension, hyperlipidemia presents to the emergency department chief complaint of chest pain. She reports that she been having symptoms intermittently over the course of the last 2 weeks, she also had an episode of vomiting once over the course of the weekend. Today the pain was described as substernal radiating around the right side. Her pain has resolved at this time initial high sensitive troponin is normal at 6.8, EKG without any STEMI criteria patient had a recent coronary angiogram around 2- 1/2 months ago which showed moderate CAD with patent stents. CT of the chest abdomen pelvis was performed as well on admission given presence of epigastric discomfort. CT showed wall thickening and mild edema around the first portion of duodenum and to a lesser extent gastric antrum concerning for possible underlying peptic ulcer disease. No perforation. Endoscopy could evaluate better. Patient will be admitted for ACS rule out, evaluation from GI for possible peptic ulcer disease. Hospital Course: Assessment: Chest pain rule out ACS GERD/concern for peptic ulcer disease Hypertension Hyperlipidemia Hypothyroidism Patient was admitted to hospital for ACS rule out initially with some epigastric and chest pain. CT showed some concern for possible peptic ulcer disease. GI was consulted and saw the patient, EGD was performed on 12/25 which showed a "severely twisted stomach with a antrum inverted superiorly, gastritis, multiple gastric erosions, duodenal ulcer and duodenitis. Subsequent upper GI series was obtained which showed moderate hiatal hernia. The herniated stomach folds on itself with the GE junction located at the normal location of the esophageal hiatus. This results in a hairpin turn. No evidence of overt volvulus. There is good movement of contrast from the esophagus into the stomach and into the duodenum without fracture. Narrowing of the gastric antrum may be related to known inflammation. Lactate levels obtained and normal, patient is feeling well at this time. She stable for discharge and outpatient follow-up with both GI and general surgery as an outpatient. She will be prescribed Protonix twice daily. Follow-up with GI and general surgery in 1 to 2 weeks For Protonix twice daily sent to her pharmacy [facility]. <Walter Brice - Last Filed: 12/25/24 15:30> Admission Date: 12/25/24 Discharge Date: 12/25/24 Hospital Course: Patient was seen and examined. Events of the last 24 hours have been noted. Spoke with with MEEK regarding patient's clinical picture after evaluating and e xamining the patient independently. I performed a substantial part of the MDM during this patient's care today. I personally made or approved the documented management plan and acknowledge its risk of complications. I agree with the findings and documentation provided in the MEEK's notes. <Andrew Noel - Last Filed: 12/30/24 12:38> Disposition: ROUTINE DISCHARGE Discharge Condition: GOOD Vital Signs/Physical Exam: Temp Pulse Resp BP Pulse Ox 97.4 F 59 16 139/63 97 12/25/24 12:00 12/25/24 12:00 12/25/24 12:00 12/25/24 12:00 12/25/24 12:00 General: Alert, In no apparent distress, Oriented x3 HEENT: Atraumatic, PERRLA Neck: Supple, JVD not distended Respiratory: Clear to auscultation bilaterally, Normal air movement Cardiovascular: Regular rate/rhythm, Normal S1 S2 Gastrointestinal: Normal bowel sounds, No tenderness Musculoskeletal: No tenderness Integumentary: No rashes Neurological: Normal speech, Normal affect Laboratory Data at Discharge: WBC 5.10 thou/uL (4.3-10.9) 12/25/24 04:32 Hgb 14.3 g/dL (12.0-15.0) 12/25/24 04:32 Hct 41.4 % (36.0-45.0) 12/25/24 04:32 Plt Count 171 thou/uL (152-406) 12/25/24 04:32 APTT 25.8 SECONDS (27.2-37.4) L 12/23/24 06:00 Sodium 138 mEq/L (136-145) 12/25/24 04:32 Potassium 4.2 mEq/L (3.5-5.1) 12/25/24 04:32 BUN 15 mg/dL (7-18) 12/25/24 04:32 Creatinine 1.09 mg/dL (0.55-1.02) H 12/25/24 04:32 Glucose 90 mg/dL (74-106) 12/25/24 04:32 Total Bilirubin 1.2 mg/dL (0.2-1.0) H 12/25/24 04:32 AST 20 U/L (15-37) 12/25/24 04:32 ALT 29 U/L (13-56) 12/25/24 04:32 Alkaline Phosphatase 92 U/L (45-117) 12/25/24 04:32 Lipase 32 U/L (13-75) 12/23/24 05:47 <Walter Brice - Last Filed: 12/25/24 15:30> Vital Signs/Physical Exam: Temp Pulse Resp BP Pulse Ox 97.5 F 56 16 136/61 97 12/25/24 16:00 12/25/24 16:00 12/25/24 16:00 12/25/24 16:00 12/25/24 16:00 Laboratory Data at Discharge: WBC 5.10 thou/uL (4.3-10.9) 12/25/24 04:32 Hgb 14.3 g/dL (12.0-15.0) 12/25/24 04:32 Hct 41.4 % (36.0-45.0) 12/25/24 04:32 Plt Count 171 thou/uL (152-406) 12/25/24 04:32 APTT 25.8 SECONDS (27.2-37.4) L 12/23/24 06:00 Sodium 138 mEq/L (136-145) 12/25/24 04:32 Potassium 4.2 mEq/L (3.5-5.1) 12/25/24 04:32 BUN 15 mg/dL (7-18) 12/25/24 04:32 Creatinine 1.09 mg/dL (0.55-1.02) H 12/25/24 04:32 Glucose 90 mg/dL (74-106) 12/25/24 04:32 Total Bilirubin 1.2 mg/dL (0.2-1.0) H 12/25/24 04:32 AST 20 U/L (15-37) 12/25/24 04:32 ALT 29 U/L (13-56) 12/25/24 04:32 Alkaline Phosphatase 92 U/L (45-117) 12/25/24 04:32 Lipase 32 U/L (13-75) 12/23/24 05:47 <Andrew Noel - Last Filed: 12/30/24 12:38> Diet: [place] Activity: Ad karishma Time spent managing pt's care (in minutes): 45 <Walter Brice - Last Filed: 12/25/24 15:30> <Andrew Noel - Last Filed: 12/30/24 12:38> Home Medications: Aspirin [Aspirin EC] 81 mg PO DAILY #90 11/28/20 Atorvastatin Calcium [Lipitor] 40 mg PO DAILY #30 tablet 11/28/20 Levothyroxine [Synthroid*] 0.05 mg PO [id number] tablet 11/28/20 Alendronate Sodium 70 mg PO DAILY 12/20/22 hydroCHLOROthiazide [Hydrodiuril*] 25 mg PO DAILY 12/20/22 Ranolazine [Ranolazine ER] 500 mg PO BID #60 tab 08/14/24 Valacyclovir HCl [Valacyclovir] 1,000 mg PO TID #21 tab 08/14/24 Ezetimibe 10 mg PO DAILY 12/23/24 Metoprolol Succinate 50 mg PO DAILY 12/23/24 Pantoprazole [Protonix Tab] 40 mg PO BID #60 tab 12/25/24 New Medications: Pantoprazole [Protonix Tab] 40 mg PO BID #60 tab Physician Discharge Instructions: Patient was admitted to hospital for ACS rule out initially with some epigastric and chest pain. CT showed some concern for possible peptic ulcer disease. GI was consulted and saw the patient, EGD was performed on 12/25 which showed a "severely twisted stomach with a antrum inverted superiorly, gastritis, multiple gastric erosions, duodenal ulcer and duodenitis. Subsequent upper GI series was obtained which showed moderate hiatal hernia. The herniated stomach folds on itself with the GE junction located at the normal location of the esophageal hiatus. This results in a hairpin turn. No evidence of overt volvulus. There is good movement of contrast from the esophagus into the stomach and into the duodenum without fracture. Narrowing of the gastric antrum may be related to known inflammation. Lactate levels obtained and normal, patient is feeling well at this time. She stable for discharge and outpatient follow-up with both GI and general surgery as an outpatient. She will be prescribed Protonix twice daily. Follow-up with GI and general surgery in 1 to 2 weeks For Protonix twice daily sent to her [facility]. Followup: Denis Nails MD [ACTIVE - CAN ADMIT] - 1-2 Weeks NONE,NONE [Primary Care Provider] - Jakub Stringer MD [ASSOCIATE-ACTIVE - CAN ADMIT] - 1-2 Weeks
[2024-12-25 16:30] VITALS: BP 136/61; TEMP 97.5
--- NOTE | 2024-12-25 17:35 | CON ---
Date of Consultation: 12/25/2024 Reason For Consultation: Atypical chest pain with CT revealing esophagitis, gastritis, and possible peptic ulcer disease. The patient also has right upper quadrant pain. History Of Present Illness: The patient is a 79-year-old female with history of hypertensio n, hyperlipidemia, coronary disease, status post 8 cardiac stents. The patient presented to hospital with chest pain and evaluated by Cardiology. Workup today has been negative. It appears the patien t probably has atypical chest pain with CT revealing esophagitis. The patient also reports right upp er quadrant pain. It has been severe prior to admission. It is better now in hospital with IV fluid s, IV antibiotics, and p.r.n. pain medicines. CT also revealed gastritis and possible peptic ulcer d isease. She denies any melena, hematochezia, hematemesis, coffee-ground emesis, hematuria, dysuria, polydipsia, chest pain, shortness of breath, numbness, tingling, seizure, syncope, muscle aches, join t aches, backaches, depression, anxiety. Past Medical History: . Medications: Per list in chart. Social History: She is , 5 kids. She has 1 daughter, who is the oldest, and has 4 younger s ons. No tobacco. No alcohol. Family History: Father had a history of asthma and possibly of stroke. Mother had cirrhosis du e to alcohol disease. Physical Examination: Vital Signs: The patient is 5 feet 2 inches, 146 pounds. Temperature is 97.4 degrees Fahrenheit, pu lse 69, respirations 16, blood pressure , O2 saturation 97%. General: Well-nourished, well-developed, lying in bed, in no acute distress currently. HEENT: Normocephalic, atraumatic. Anicteric. Pupils equal, round, and reactive to light. Extraocu lar movements intact. Oropharynx is clear. Neck: Supple. No masses. Respirations: Clear to auscultation bilaterally. Cardiac: Regular rate and rhythm. No gallop or rub. Abdomen: Positive bowel sounds. Soft, nondistended. Some mild right upper quadrant tenderness, but no peritoneal Andres sign. No rebound. Mildly obese. Extremities: No clubbing, cyanosis. No edema. 2+ pulses. Neuro: Alert and oriented x3. Grossly nonfocal. 5/5 motor sensation intact to light touch. Laboratory Data: The patient has a white count of 5.1, hemoglobin of 14, hematocrit of 41, MCV of 93 , platelet count 171, polys of 55%, lymphocytes 32%, monocytes 10%, eosinophils 2% PTT of 25.8. She has a sodium 138, potassium 4.2, chloride 106, bicarb 29, BUN of 15, creatinine of 1.1, glucose 90, c alcium 8.9, total bilirubin 1.2, AST of 20, ALT 29, alkaline phosphatase 292, total protein 6.9, albu min 3.9. TSH of 3.2, normal. CT chest, abdomen, and pelvis revealed wall thickening and mild edema around the first portion of the duodenum, to a lesser extent the gastric antrum, concerning for possi ble underlying peptic ulcer disease. Also, some inflammation of the esophagus was verbally reported and also status post cholecystectomy changes. There was moderate diverticulosis without diverticulit is noted in the colon. Impression: 1. Chest pain that is probably atypical. Cardiology evaluation to date has been negative. The patie nt does not report any history of severe reflux or heartburn or possibly silent at this stage. We wi ll need to investigate with EGD. 2. Right upper quadrant pain with CT revealing gastritis and inflammation of the duodenal bulb and ve rbally some esophagitis reported as well. We will need to investigate with EGD. 3. Abnormal CT as stated above with esophagitis, gastritis, duodenitis, and possible peptic ulcer dis ease. 4. History of hypertension, hyperlipidemia, coronary artery disease, status post 8 stents, hypothyroi dism, tubal ligation, gastric reflux disease, appendectomy, cholecystectomy, bilateral wrist surgerie s, probably carpal tunnel, and bone spur surgery in the past. Recommendations: 1. PPI therapy. Cardiology evaluation to date has been negative. 2. EGD evaluation. 3. N.p.o. 4. Continue IV fluids resuscitation. WS/PRIYANKAL Voice ID: [id number] Report ID: [id number]
== END 2024-12-25 17:38 | disposition home or self-care (01) | DRG 384 ==
LOC: ER 05:37 → ERHOLD 08:01 → 2ND 08:52 → OBSVTOIN 12-25 08:09
PROVIDERS: ADMIT Hospitalist; ATTEND Hospitalist
PROC: 0DB78ZX Excision of Stomach, Pylorus, Via Natural or Artificial Opening Endoscopic, Diagnostic (ICD-10-PCS; 2024-12-25)
PROC: 0DB68ZX Excision of Stomach, Via Natural or Artificial Opening Endoscopic, Diagnostic (ICD-10-PCS; principal; 2024-12-25 09:15)
DX: K26.3 Acute duodenal ulcer without hemorrhage or perforation (principal); K29.70 Gastritis, unspecified, without bleeding; K25.9 Gastric ulcer, unspecified as acute or chronic, without hemorrhage or perforation; K29.80 Duodenitis without bleeding; K20.90 Esophagitis, unspecified without bleeding; I10 Essential (primary) hypertension; E03.9 Hypothyroidism, unspecified; E78.00 Pure hypercholesterolemia, unspecified; K21.9 Gastro-esophageal reflux disease without esophagitis; K44.9 Diaphragmatic hernia without obstruction or gangrene; I25.10 Atherosclerotic heart disease of native coronary artery without angina pectoris; K31.89 Other diseases of stomach and duodenum; R07.9 Chest pain, unspecified; Z88.5 Allergy status to narcotic agent; Z95.5 Presence of coronary angioplasty implant and graft; Z90.49 Acquired absence of other specified parts of digestive tract; Z79.82 Long term (current) use of aspirin; Z79.02 Long term (current) use of antithrombotics/antiplatelets; Z79.890 Hormone replacement therapy; Z79.899 Other long term (current) drug therapy
CPT/HCPCS: 36415; 71045; 71260; 74177; 74240; 80048; 80053; 80076; 82550; 83605; 83690; 84443; 84484; 85025; 85730; 88305; 88312; 93005; 99285; A4216; G0378; J1644; J1650; J2270; J2405; J2470; J2704; J2765; J7030; J7120; Q0169; Q9967